=== PATIENT | male | born 1960 | race Caucasian/White ===

== ENCOUNTER 2019-06-09 10:32 | Emergency (ER) | payer OTHER, SELFPAY ==
[2019-06-09 10:48] VITALS: BP 161/104; PULSE 65; RESP 18; TEMP 36.4; O2SAT 100; BMI 24.7
[2019-06-09 11:06] LABS: Basophils # 0.1 10^3/uL (0.0-0.1); Basophils % 0.9 %; Eosinophils # 1.1 10^3/uL (0.0-0.8); Eosinophils % 12.5 %; Hematocrit 42.7 % (42.0-52.0); Hemoglobin 14.4 g/dL (11.7-16.6); Lymphocytes % 22.6 %; Mean Corpuscular HGB Conc 33.7 g/dL (30.0-36.0); Mean Corpuscular Hemoglobin 29.8 pg (28.0-34.0); Mean Corpuscular Volume 88.4 fL (80-94); Mean Platelet Volume 9.3 fL (7.4-10.4); Monocytes # 0.7 10^3/uL (0.2-0.9); Monocytes % 7.9 %; Neutrophils # 4.9 10^3/uL (1.8-7.7); Neutrophils % 55.4 %; Nucleated Red Blood Cells % 0 %; Platelet Count 309 10^3/cmm (130-400); Red Blood Count 4.83 10^6/uL (4.1-5.3); Red Cell Distribution Width 13.1 % (12.1-15.1); White Blood Count 8.8 10^3/uL (4.0-10.0)
[2019-06-09 11:24] LABS: Alanine Aminotransferase 13 U/L (0-41); Albumin Level 4.4 g/dL (3.5-5.2); Alkaline Phosphatase 71 IU/L (40-130); Anion Gap 14.4 (5-19); Aspartate Amino Transferase 15 U/L (0-40); Blood Urea Nitrogen 15 mg/dL (6-20); Calcium 9.7 mg/Dl (8.6-10.0); Carbon Dioxide 29 mmol/L (22-29); Chloride 99 mmol/L (98-107); Globulin 3.3 g/dL (1.3-4.6); Glomerular Filtration Rate 115.8 mL/min (90-130); Glucose 104 mg/dL (74-109); Lipase 19 U/L (13-60); Potassium 4.4 mmol/L (3.5-5.1); Sodium 138 mmol/L (136-145); Total Bilirubin 0.6 mg/dL (0.15-1.2); Total Protein 7.7 g/dL (6.6-8.7)
== END 2019-06-09 14:43 | disposition left against medical advice (07) ==
LOC: ER 11:32
PROVIDERS: Nurse Practitioner Family; Emergency Provider Emergency Medicine
DX: Z53.21 Procedure and treatment not carried out due to patient leaving prior to being seen by health care provider (principal)
CPT/HCPCS: 36415; 80053; 83690; 85025; 99281

== ENCOUNTER 2019-06-10 09:35 | Emergency (ER) | payer OTHER, SELFPAY ==
[2019-06-10 09:47] VITALS: BP 151/91; PULSE 70; RESP 18; TEMP 36.7; O2SAT 99; BMI 24.7
--- NOTE | 2019-06-10 10:02 | ED_ITS ---
Entered by Marlyn Bell, acting as scribe for Jun 10, 2019 09:35 HPI - Chest Pain General: Chief Complaint: Abdominal Pain Stated Complaint: pressure on chest Time Seen by Provider: 06/10/19 10:00 Source: patient Mode of arrival: ambulatory Limitations: no limitations History of Present Illness: MD complaint: other (abdomen pain that radiates to his head) Onset (ago): day(s) (yesterday) Prior episodes: Yes Onset: during rest Pain radiation: other (abdomen to head) Severity: mild Quality: sharp Relieving factors: nothing Exacerbating factors: nothing Associated symptoms: Reports abdominal pain Treatment prior to arrival: none Review of Systems GI: Reports: abdominal pain PFSH ED PFSH: Statuses (acute, chronic, etc) shown below reflect problem list status as previously entered and may not be historically accurate Medical History (Updated 06/10/19 @ 14:05 by Marco A Robertson DO) History of chronic hypertension (Acute) Surgical History (Updated 06/10/19 @ 10:11 by Marlyn Bell) History of appendectomy (Acute) History of tonsillectomy (Acute) Social History Smoking and tobacco status: former smoker Course Vital Signs: Vital signs: Vital Signs Temperature 97.6 F 06/10/19 14:24 Pulse Rate 70 06/10/19 14:31 Respiratory Rate 15 06/10/19 14:31 Blood Pressure 125/70 06/10/19 14:31 Pulse Oximetry 98 06/10/19 14:31 MDM - Chest Pain Lab Data: Labs: Lab Results 06/10/19 06/10/19 06/10/19 Range/Units 11:20 11:20 11:20 WBC 7.9 (4.0-10.0) 10^3/ uL RBC 4.56 (4.1-5.3) 10^6/u L Hgb 13.6 (11.7-16.6) g/dL Hct 40.5 L (42.0-52.0) % MCV 88.8 (80-94) fL MCH 29.8 (28.0-34.0) pg MCHC 33.6 (30.0-36.0) g/dL RDW 13.1 (12.1-15.1) % Plt Count 285 (130-400) 10^3/c mm MPV 9.1 (7.4-10.4) fL Neut % (Auto) 55.4 % Lymph % (Auto) 20.9 % [place] % (Auto) 8.6 % Eos % (Auto) 13.4 % Baso % (Auto) 1.1 % Neut # (Auto) 4.4 (1.8-7.7) 10^3/u L Lymph # (Auto) 1.7 (0.8-4.8) 10^3/u L [place] # (Auto) 0.7 (0.2-0.9) 10^3/u L Eos # (Auto) 1.1 H (0.0-0.8) 10^3/u L Baso # (Auto) 0.1 (0.0-0.1) 10^3/u L Nucleated RBC % (a uto) 0 % Nucleated RBCs # 0.0 /100WBC Sodium 142 (136-145) mmol/L Potassium 4.4 (3.5-5.1) mmol/L Chloride 104 (98-107) mmol/L Carbon Dioxide 29 (22-29) mmol/L Anion Gap 13.4 (5-19) BUN 18 (6-20) mg/dL Creatinine 0.9 (0.7-1.2) mg/dL GFR Calculation 86.7 L (90-130) mL/min Glucose 104 (74-109) mg/dL Calcium 9.4 (8.6-10.0) mg/Dl Total Bilirubin 0.3 (0.15-1.2) mg/dL AST 13 (0-40) U/L ALT 13 (0-41) U/L Alkaline Phosphata se 64 (40-130) IU/L Troponin T Baselin e 6 (0-15) ng/mL Troponin T 120 Min [place] (0-15) ng/mL Delta Troponin T (0-10) ABS# Total Protein 6.8 (6.6-8.7) g/dL Albumin 4.0 (3.5-5.2) g/dL Globulin 2.8 (1.3-4.6) g/dL Lipase 21 (13-60) U/L 06/10/19 Range/Units 13:25 WBC (4.0-10.0) 10^3/ uL RBC (4.1-5.3) 10^6/u L Hgb (11.7-16.6) g/dL Hct (42.0-52.0) % MCV (80-94) fL MCH (28.0-34.0) pg MCHC (30.0-36.0) g/dL RDW (12.1-15.1) % Plt Count (130-400) 10^3/c mm MPV (7.4-10.4) fL Neut % (Auto) % Lymph % (Auto) % [place] % (Auto) % Eos % (Auto) % Baso % (Auto) % Neut # (Auto) (1.8-7.7) 10^3/u L Lymph # (Auto) (0.8-4.8) 10^3/u L [place] # (Auto) (0.2-0.9) 10^3/u L Eos # (Auto) (0.0-0.8) 10^3/u L Baso # (Auto) (0.0-0.1) 10^3/u L Nucleated RBC % (a uto) % Nucleated RBCs # /100WBC Sodium (136-145) mmol/L Potassium (3.5-5.1) mmol/L Chloride (98-107) mmol/L Carbon Dioxide (22-29) mmol/L Anion Gap (5-19) BUN (6-20) mg/dL Creatinine (0.7-1.2) mg/dL GFR Calculation (90-130) mL/min Glucose (74-109) mg/dL Calcium (8.6-10.0) mg/Dl Total Bilirubin (0.15-1.2) mg/dL AST (0-40) U/L ALT (0-41) U/L Alkaline Phosphata se (40-130) IU/L Troponin T Baselin e (0-15) ng/mL Troponin T 120 Min [place] 6.00 (0-15) ng/mL Delta Troponin T 0 (0-10) ABS# Total Protein (6.6-8.7) g/dL Albumin (3.5-5.2) g/dL Globulin (1.3-4.6) g/dL Lipase (13-60) U/L Discharge Plan Discharge Patient Disposition: Home, Self-Care Clinical Impression: Gastritis Qualifiers: Gastritis type: other gastritis Chronicity: acute Gastritis bleeding: without bleeding Qualified Code(s): K29.00 - Acute gastritis without bleeding Gastroesophageal reflux disease Qualifiers: Esophagitis presence: without esophagitis Qualified Code(s): K21.9 - Gastro- esophageal reflux disease without esophagitis Condition: Stable Prescriptions: New Pepcid 40 mg tablet 40 mg PO BID 56 Days Qty: 112 RF: 0 Carafate 100 mg/mL suspension 10 ml PO Q6H 56 Days Qty: 2240 RF: 0 amoxicillin 500 mg capsule 500 mg PO TID 10 Days Qty: 30 RF: 0 prednisone 10 mg tablets,dose pack See Rx Instructions .ROUTE .COMPLEX Qty: 21 RF: 0 No Action ibuprofen 200 mg Capsule 200 - 400 mg PO Q6H PRN (Reason: Pain) RF: 0 Tylenol Extra Strength 500 mg Tablet 500 - 1,000 mg PO Q4H PRN (Reason: Pain) RF: 0 Discharge Orders: Discharge Order (Routine); Ordered 06/10/19 Ordered By: Marco A Robertson Referrals: Angel Oro MD [Primary Care Provider] - [facility] [Family Provider] - Discharge Date/Time: 06/10/19 14:31 Coding Level of Care Code ED Tumbling Machine Operator for Chg Fwd The documentation recorded by the Ray otoole Bridget Annette, accurately reflects the service I personally performed and the decisions made by Marcelo torres Donald P, Jun 10, 2019 09:35
--- NOTE | 2019-06-10 11:11 | ECG_ITS ---
Measurements Intervals [place] Rate: 56 P: 37 CO: 161 QRS: 5 QRSD: 79 T: 29 QT: 400 QTc: 389 SINUS BRADYCARDIA No previous ECG available for comparison Electronically Signed On 06-10-2019 13:26:05 DOG HANDLER by Emilie Mendoza M.D. [email or web address]
[2019-06-10 11:25] LABS: Basophils # 0.1 10^3/uL (0.0-0.1); Basophils % 1.1 %; Eosinophils # 1.1 10^3/uL (0.0-0.8); Eosinophils % 13.4 %; Hematocrit 40.5 % (42.0-52.0); Hemoglobin 13.6 g/dL (11.7-16.6); Lymphocytes # 1.7 10^3/uL (0.8-4.8); Lymphocytes % 20.9 %; Mean Corpuscular HGB Conc 33.6 g/dL (30.0-36.0); Mean Corpuscular Hemoglobin 29.8 pg (28.0-34.0); Mean Corpuscular Volume 88.8 fL (80-94); Mean Platelet Volume 9.1 fL (7.4-10.4); Monocytes # 0.7 10^3/uL (0.2-0.9); Monocytes % 8.6 %; Neutrophils # 4.4 10^3/uL (1.8-7.7); Neutrophils % 55.4 %; Nucleated Red Blood Cells % 0 %; Platelet Count 285 10^3/cmm (130-400); Red Blood Count 4.56 10^6/uL (4.1-5.3); Red Cell Distribution Width 13.1 % (12.1-15.1); White Blood Count 7.9 10^3/uL (4.0-10.0)
[2019-06-10 11:44] LABS: Alanine Aminotransferase 13 U/L (0-41); Alkaline Phosphatase 64 IU/L (40-130); Anion Gap 13.4 (5-19); Aspartate Amino Transferase 13 U/L (0-40); Blood Urea Nitrogen 18 mg/dL (6-20); Calcium 9.4 mg/Dl (8.6-10.0); Carbon Dioxide 29 mmol/L (22-29); Chloride 104 mmol/L (98-107); Globulin 2.8 g/dL (1.3-4.6); Glomerular Filtration Rate 86.7 mL/min (90-130); Glucose 104 mg/dL (74-109); Lipase 21 U/L (13-60); Potassium 4.4 mmol/L (3.5-5.1); Sodium 142 mmol/L (136-145); Total Bilirubin 0.3 mg/dL (0.15-1.2); Total Protein 6.8 g/dL (6.6-8.7)
[2019-06-10 11:46] LABS: Troponin(5th) Baseline 6 ng/mL (0-15)
[2019-06-10 12:12] VITALS: BP 123/72; PULSE 66; RESP 19; O2SAT 98
--- NOTE | 2019-06-10 13:11 | ECG_ITS ---
Measurements Intervals [place] Rate: 66 P: 42 DE: 149 QRS: 0 QRSD: 84 T: 31 QT: 378 QTc: 397 SINUS RHYTHM No previous ECG available for comparison Electronically Signed On 06-10-2019 13:35:45 HOURLY SIGN LANGUAGE INTERPRETER by Emilie Mendoza M.D. [email or web address]
[2019-06-10 13:52] LABS: Troponin 5 2HR Delta 0 ABS# (0-10)
[2019-06-10 14:24] VITALS: BP 137/84; PULSE 64; RESP 18; TEMP 36.4; O2SAT 98
[2019-06-10 14:31] VITALS: BP 125/70; PULSE 70; RESP 15; O2SAT 98
== END 2019-06-10 14:31 | disposition home or self-care (01) ==
PROVIDERS: Emergency Provider Family Medicine; PCP Urology
DX: K29.00 Acute gastritis without bleeding (principal); K21.9 Gastro-esophageal reflux disease without esophagitis; I10 Essential (primary) hypertension; Z87.891 Personal history of nicotine dependence
CPT/HCPCS: 36415; 80053; 83690; 84484; 85025; 93005; 99282; 99283

== ENCOUNTER → 2020-07-22 11:31 | Outpatient (BNVA) | payer OTHER, SELFPAY | PROVIDERS: PCP Orthopaedic Surgery; Referring Provider Family Medicine; Visit Provider Specialist | DX: M25.561 Pain in right knee (principal) | CPT/HCPCS: 73560; 73565 ==

== ENCOUNTER → 2023-07-03 12:20 | Outpatient (BNVA) | payer OTHER, SELFPAY | PROVIDERS: PCP Nurse Practitioner; Visit Provider Internal Medicine Rheumatology | DX: Z79.899 Other long term (current) drug therapy (principal); M19.90 Unspecified osteoarthritis, unspecified site; R76.8 Other specified abnormal immunological findings in serum; Z11.59 Encounter for screening for other viral diseases; M35.2 Behcet's disease | CPT/HCPCS: 36415; 73130; 73630; 80076; 82565; 85007; 85025; 85651; 86021; 86036; 86140; 86160; 86162; 86200; 86235; 86255; 86376; 86431; 86480; 86704; 86800; 86803; 86812; 87340; 99205 ==

== ENCOUNTER 2023-07-05 11:13 | Outpatient (CLI) | payer OTHER, SELFPAY ==
[2023-07-06 16:09] LABS: Alternaria Alternata (M6) Ige <0.10 kU/L; Alternaria Class 0; Bermuda Class 0; Bermuda Grass (G2) Ige <0.10 kU/L; Cat Dander (E1) Ige <0.10 kU/L; Cat Dander Class 0; Common Ragweed (Short) (W1) Ig <0.10 kU/L; D. Farinae Class 0; Dermatophagoides Class 0; Dermatophagoides Farinae (D2) <0.10 kU/L; Dermatophagoides Pteronyssinus <0.10 kU/L; Dog Dander (E5) Ige <0.10 kU/L; Dog Dander Class 0; Elm (T8) Ige <0.10 kU/L; Elm Class 0; English Plantain (W9) Ige <0.10 kU/L; English Plantain Class 0; House Dust (Greer) (H1) Ige <0.10 kU/L; House Dust (Hollister- Stier) <0.10 kU/L; House Dust Class 0; Immunoglobulin E 6 kU/L (<OR=114); Johnson Grass (G10) Ige <0.10 kU/L; Johnson Grass Cl 0; June Grass Class 0; June Grass(Kentucky Blue) (G8) <0.10 kU/L; Lamb'S Quarters (Goose Foot) <0.10 kU/L; Lamb'S Quarters Class 0; Maple (Box Elder) (T1) Ige <0.10 kU/L; Maple Class 0; Meadow Fescue (G4) Ige <0.10 kU/L; Meadow Fescue Class 0; Mucor Racemosus Class 0; Oak (T7) Ige <0.10 kU/L; Oak Class 0; Orchard Grass (Cocksfoot) (G3) <0.10 kU/L; Penicillium Class 0; Penicillium Notatum (M1) Ige <0.10 kU/L; Perennial Rye Grass (G5) Ige <0.10 kU/L; Perennial Rye Grass Class 0; Ragweeed Class 0; Rough Marsh Elder (W16) Ige <0.10 kU/L; Rough Marsh Elder Class 0; Sweet Vernal Class 0; Sweet Vernal Grass (G1) Ige <0.10 kU/L; Timothy Grass (G6) Ige <0.10 kU/L; Timothy Grass Class 0
== END 2023-07-05 11:14 | disposition home or self-care (01) ==
LOC: LAB 11:14
PROVIDERS: PCP Nurse Practitioner; Visit Provider Internal Medicine Rheumatology
DX: D72.10 Eosinophilia, unspecified (principal)
CPT/HCPCS: 36415; 82785; 86003

== ENCOUNTER 2023-07-17 09:33 | Outpatient (CLI) | payer OTHER, SELFPAY ==
--- NOTE | 2023-07-17 10:45 | USCV_ITS ---
Mark Rodriguez Age: 63 Gender: M : 1960 Exam Date: 07/17/2023 09:45 Ordering Phys: Rashid Cardozo MD Technologist: Mckayla Luis [place] [facility] [place]: SWOLLEN ANKLES HISTORY: Swollen ankles and feet PROCEDURES: The venous duplex Doppler examination of both lower extremities was performed in the standard fashion. The following venous structures were evaluated: common femoral vein, profunda vein, proximal portion of the greater saphenous vein, superficial femoral vein, and the popliteal vein. In addition, the posterior tibial and peroneal trunk were evaluated. Serial compression, augmentation maneuvers, and spectral Doppler flow evaluation were performed. FINDINGS: Normal 2-D Doppler and augmentation and compressibility throughout the lower extremity venous structures. Additional imaging through the proximal calf veins also reveals no thrombus. Limited evaluation of the greater saphenous vein is patent with no thrombus. The veins were found to be easily compressible with spontaneous blood flow. Non pulsatile flow pattern. CONCLUSIONS No evidence of DVT in the above-mentioned identifiable veins. Dr Bubba Dale MD [facility] (Electronically Signed) Final Date: 19 July 2023 09:10 S
== END 2023-07-17 09:34 | disposition home or self-care (01) ==
LOC: RAD 09:34
PROVIDERS: PCP Nurse Practitioner; Visit Provider Internal Medicine Rheumatology
DX: L98.9 Disorder of the skin and subcutaneous tissue, unspecified (principal); M35.2 Behcet's disease; I83.90 Asymptomatic varicose veins of unspecified lower extremity
CPT/HCPCS: 93970

== ENCOUNTER 2023-07-19 08:55 | Outpatient (CLI) | payer OTHER, SELFPAY ==
--- NOTE | 2023-07-19 09:15 | USCV_ITS ---
Mark Rodriguez Age: 63 Gender: M : 1960 Exam Date: 07/19/2023 09:01 Ordering Phys: Rashid Cardozo MD Technologist: MANN Exam Location: [facility] [place] Indication: pad Risk Factors: Previous Vascular Surgery: RIGHT LEFT BP: 150.0 / 87.00 BP: 157.0/ 90.00 0 0 Waveform Velocity (cm/s) Velocity (cm/s) Waveform Triphasic 63.0 Iliac Prox 66.0 Triphasic Triphasic 62.0 Iliac Mid 60.0 Triphasic Triphasic 66.0 Iliac Distal 65.0 Biphasic Triphasic 66.0 DATA REVIEW SPECIALIST 63.0 Biphasic Triphasic 70.0 SFA Prox 79.0 Triphasic Triphasic 60.0 SFA Mid 74.0 Triphasic Triphasic SFA Dist Triphasic 60.0 85.0 Triphasic 41.0 POP 51.0 Biphasic Triphasic 77.0 SUPERVISOR TUBING 66.0 Biphasic Triphasic 75.0 DPA 77.0 Biphasic 0.9 KESHIA 0.9 FINDINGS Near normal arterial Doppler waveforms and velocities Resting KESHIA of 0.9 bilaterally CONCLUSIONS Normal normal resting ABIs bilaterally Normal arterial Doppler waveforms and flow velocities bilaterally No significant arterial obstruction, based on the above findings Dr Bubba Dale MD [facility] (Electronically Signed) Final Date: 19 July 2023 17:17 S
== END 2023-07-19 08:56 | disposition home or self-care (01) ==
LOC: RAD 08:56
PROVIDERS: PCP Nurse Practitioner; Visit Provider Internal Medicine Rheumatology
DX: L98.9 Disorder of the skin and subcutaneous tissue, unspecified (principal); M35.2 Behcet's disease; I83.90 Asymptomatic varicose veins of unspecified lower extremity
CPT/HCPCS: 93925

== ENCOUNTER → 2023-08-06 12:29 | Outpatient (BNVA) | payer OTHER, SELFPAY | PROVIDERS: PCP Nurse Practitioner; Visit Provider Internal Medicine Rheumatology | DX: M35.2 Behcet's disease (principal); Z79.899 Other long term (current) drug therapy; K12.1 Other forms of stomatitis; Z71.85 Encounter for immunization safety counseling; M19.90 Unspecified osteoarthritis, unspecified site; R21 Rash and other nonspecific skin eruption | CPT/HCPCS: 99215 ==

== ENCOUNTER 2023-08-21 14:32 | Outpatient (CLI) | payer OTHER, SELFPAY ==
--- NOTE | 2023-08-21 15:00 | CT_ITS ---
WS: [id number] CTA CHEST AND ABDOMEN TECHNIQUE: Noncontrast plus contrast enhanced CTA of the chest and abdomen with coronal and sagittal reformatted images and additional MIP Images. CLINICAL INFORMATION: L98.9 - Disorder of the skin and subcutaneous tissue, uns... COMPARISON: None. DLP: [id number] scans at [facility] use at least one of these dose optimization techniques: automated e xposure control; mA and/or kV adjustment per patient size (includes targeted exams where dose is matc hed to clinical indication); or iterative reconstruction. FINDINGS: Lungs are well aerated. No acute pulmonary infiltrates. No focal pneumonia or pleural fluid. Slight b ibasilar atelectasis. Proximal main pulmonary arteries are normal. Normal caliber thoracic aorta. Nor mal caliber ascending and descending thoracic aorta. Normal caliber abdominal aorta with mild aortic calcification. Celiac and SMA are patent. Proximal re nal arteries are patent. Partially visualized ectatic RIGHT common iliac artery measuring 1.6 cm. Thi s could be further evaluated with ultrasound. Pelvis not included on this examination. A few small hepatic cysts. Small esophageal hiatal hernia. Adrenal glands are normal. No hydronephros is in either kidney. Peripelvic renal cysts. Mild splenomegaly measuring 13.0 cm. Normal pancreas. Pa rtially visualized bilateral spondylolysis L5-S1 with slight anterolisthesis. Normal visualized proxi mal great vessels. IMPRESSION: 1. Normal caliber thoracic aorta and proximal main pulmonary arteries. 2. No suspicious findings in the chest. 3. Normal caliber abdominal aorta with mild aortic calcification. 4. Partially visualized ectatic RIGHT common iliac artery measuring 1.6 cm. This can be further eval uated with ultrasound. 5. Small esophageal hiatal hernia. 6. Peripelvic renal cysts. 7. A few small incidental hepatic cysts. 8. Mild splenomegaly. 9. L5-S1 spondylolysis with slight grade 1 anterolisthesis
[2023-08-21] MEDS: iohexol 350 mg/mL 500 mL Btl (per mL) IV (15:20)
== END 2023-08-21 14:33 | disposition home or self-care (01) ==
LOC: RAD 14:33
PROVIDERS: PCP Nurse Practitioner; Visit Provider Internal Medicine Rheumatology
DX: L98.9 Disorder of the skin and subcutaneous tissue, unspecified (principal); M35.2 Behcet's disease; I83.90 Asymptomatic varicose veins of unspecified lower extremity; K44.9 Diaphragmatic hernia without obstruction or gangrene; N28.1 Cyst of kidney, acquired; K76.89 Other specified diseases of liver; M47.816 Spondylosis without myelopathy or radiculopathy, lumbar region; R16.1 Splenomegaly, not elsewhere classified
CPT/HCPCS: 71275; 74175; Q9967

== ENCOUNTER 2023-09-13 14:38 | Outpatient (CLI) | payer OTHER, SELFPAY ==
[2023-09-13 14:56] LABS: Hematocrit 35.8 % (37-53); Mean Corpuscular Hemoglobin 33.1 pg (27-33); Mean Corpuscular Volume 100.3 fl (82-101); Mean Platelet Volume 8.6 fL (7.4-10.4); Platelet Count 230 10^3/cmm (157-399); Red Blood Count 3.57 10^6/uL (3.85-5.65); Red Cell Distribution Width 14.6 % (12.1-15.1); White Blood Count 11.06 10^3/uL (3.29-11.43)
[2023-09-13 15:14] LABS: Alanine Aminotransferase 12 U/L (0-41); Albumin Level 3.8 g/dL (3.5-5.2); Alkaline Phosphatase 70 U/L (40-130); Aspartate Amino Transferase 8 U/L (0-40); Globulin 2.5 g/dL (1.3-4.6); Glomerular Filtration Rate 75.7 mL/min (90-130); Total Bilirubin 0.4 mg/dL (0.15-1.2); Total Protein 6.3 g/dL (6.6-8.7)
[2023-09-13 15:20] LABS: Slide Review Slide Review Perform; Total Cells Counted 100 (0-100)
[2023-09-13 15:25] LABS: Absolute Segmented Neutrophil 7.2 10/cmm (1.6-7.1); Band Neutrophils Absolute 0.3 10^3/cmm (0.0-1.2); Lymphocytes 24 %; Segmented Neutrophils 65 %
[2023-09-13 15:26] LABS: Absolute Eosinophils 0.2 10^3/cmm (0.0-0.7); Absolute Neutrophil 7.5 10^3/cmm (1.4-6.5); Anisocytosis Trace; Eosinophils 2 %; Lymphocytes Absolute 2.7 10^3/cmm (1.2-3.4); Macrocytosis Trace; Platelet Estimate Normal (Normal)
== END 2023-09-13 14:39 | disposition home or self-care (01) ==
LOC: LAB 14:39
PROVIDERS: PCP Nurse Practitioner; Visit Provider Internal Medicine Rheumatology
DX: M35.2 Behcet's disease (principal); Z79.899 Other long term (current) drug therapy
CPT/HCPCS: 36415; 80076; 82565; 85007; 85025; 86140

== ENCOUNTER 2023-10-04 14:53 | Emergency (ER) | payer OTHER, SELFPAY ==
--- NOTE | 2023-10-04 15:04 | XRR_ITS ---
PROCEDURE INFORMATION: Exam: XR Right Knee Exam date and time: 10/04/2023 3:15 PM Age: 63 years old Clinical indication: Patient HX: Pain in right knee; Additional info: Injury TECHNIQUE: Imaging protocol: Radiologic exam of the right knee. Views: 3 views. COMPARISON: CR XR knees AP WB w RT lmt ORTH 07/22/2020 11:37 AM FINDINGS: Bones/joints: No acute fracture. Joint spaces are preserved. Soft tissues: Chondrocalcinosis of the menisci. XR/XR knee RT 3V* [id number] IMPRESSION: No acute findings.
[2023-10-04 15:29] VITALS: BP 141/85; PULSE 75; RESP 16; TEMP 36.7; O2SAT 97; BMI 28.3
[2023-10-04 17:18] LABS: Basophils % 0.3 %; Eosinophils # 0.4 10^3/uL (0.0-0.8); Eosinophils % 3.1 %; Hematocrit 39.8 % (37-53); Lymphocytes # 2.3 10^3/uL (0.8-4.8); Lymphocytes % 19.8 %; Mean Corpuscular HGB Conc 32.4 g/dL (30-55); Mean Corpuscular Hemoglobin 32.8 pg (27-33); Mean Corpuscular Volume 101.3 fl (82-101); Mean Platelet Volume 8.7 fL (7.4-10.4); Monocytes # 0.4 10^3/uL (0.2-0.9); Monocytes % 3.1 %; Neutrophils # 8.21 10^3/uL (1.8-7.7); Neutrophils % 71.6 %; Nucleated Red Blood Cells % 0 %; Platelet Count 225 10^3/cmm (157-399); Red Blood Count 3.93 10^6/uL (3.85-5.65); Red Cell Distribution Width 13.8 % (12.1-15.1); White Blood Count 11.47 10^3/uL (3.29-11.43)
[2023-10-04 17:29] LABS: Alanine Aminotransferase 13 U/L (0-41); Alkaline Phosphatase 67 U/L (40-130); Anion Gap 13.6 (5-19); Aspartate Amino Transferase 8 U/L (0-40); Blood Urea Nitrogen 21 mg/dL (8-23); C Reactive Protein 10.8 mg/L (0.0-4.9); Calcium 8.7 mg/dL (8.5-10.5); Carbon Dioxide 27 mmol/L (22-29); Chloride 108 mmol/L (98-107); Erythrocyte Sedimentation Rate 5 mm/hr (0-10); Globulin 3.2 g/dL (1.3-4.6); Glomerular Filtration Rate 85.5 mL/min (90-130); Glucose 115 mg/dL (65-115); Osmolality Calculated 302 mOsm/kg (285-295); Potassium 4.6 mmol/L (3.5-5.1); Sodium 144 mmol/L (136-145); Total Bilirubin 0.4 mg/dL (0.15-1.2); Total Protein 7.2 g/dL (6.6-8.7); Uric Acid 6.3 mg/dL (3.4-7.0)
[2023-10-04 17:54] LABS: Slide Review Slide Review Perform
--- NOTE | 2023-10-04 19:29 | ED_ITS ---
HPI - Extremity Problem 2 General: Chief complaint: Extremity Problem,Nontraumatic Stated complaint: right knee pain, sent by Juliane Time Seen by Provider: 10/04/23 19:28 History of Present Illness: 63-year-old male [facility] Patient was sent over by rheumatology for concerns of possible septic knee. Patient has some redness to the anterior aspect of the knee. There is some fluctuance in the area of redness. Patient denies fever or chills. Patient has been on cephalexin for treatment of possible cellulitis. Review of Systems 2 General: Reports: 10 or more systems reviewed and unremarkable except in HPI and below PFSH ED 2 PFSH: Medical History (Updated 10/04/23 @ 20:02 by LEEANN Dumas) Allergies Rash Immunization counseling High risk medication use Oral ulceration Male genital ulcer Behcet's disease Suspected Inflammatory arthritis History of chronic hypertension Surgical History History of appendectomy History of tonsillectomy Family History Other Diabetes Hypertension Stroke Denies family history of Lupus (systemic lupus erythematosus) Rheumatoid arthritis Liver disease Polycystic kidney disease Heart disease Hyperlipidemia Kidney stones Family history of premature coronary artery disease Lung disease Cancer Social History Smoking and tobacco/nicotine status: former use of tobacco/nicotine Alcohol intake: never Physical Exam 2 Const: COMMON NORMALS: alert HENMT: COMMON NORMALS: normocephalic HEAD & SCALP: normocephalic Neck/C-Spine: COMMON NORMALS: full ROM Resp: COMMON NORMALS: normal respiratory effort and clear to auscultation bilaterally AUSCULTATION: clear to auscultation bilaterally Cardio: COMMON NORMALS: regular rate and regular rhythm RATE: regular rate RHYTHM: regular rhythm GI: COMMON NORMALS: non-tender Extremity: RIGHT LOWER EXTREMITY: Yes knee joint (Anterior knee redness. Normal range of motion.) Right knee: Yes inspection, Yes palpation, Yes ROM and Yes neurovascular exam Neuro: SENSORIUM/ORIENTATION: Yes alert Skin: NARRATIVE SKIN EXAM: Redness and induration to the anterior right knee. Central fluctuance. Procedures Abscess I/D Site: lower extremity Side (if applicable): right Local Anesthetic: lidocaine 2% Amount of anesthesia used (mL): 1 Technique: needle aspiration Amount of fluid expressed (mL): 5 Irrigation: No Packing used?: none Course 2 Vital Signs: Vital signs: Vital Signs Temperature 98.0 F 10/04/23 15:29 Pulse Rate 75 10/04/23 15:29 Respiratory Rate 16 10/04/23 15:29 Blood Pressure 141/85 10/04/23 15:29 Pulse Oximetry 97 10/04/23 15:29 Oxygen Delivery Me thod Room Air 10/04/23 15:29 MDM - Extremity (Nontraumatic) Medical Decision Making 63-year-old male patient comes in today for complaints of anterior redness to the right knee. On exam patient appears nontoxic. Patient has some tenderness to the knee. Patient has good range of motion of the knee. Swelling is noted anteriorly to the knee. Differential diagnosis includes not limited to septic arthritis, bursitis, abscess. Attempted aspiration of the joint with no success. Then performed a superficial aspiration in the area of fluctuance which was centralized to the area of redness and was able to aspirate 5 mL of purulent fluid. This seems to be more of an abscess than a bursitis or septic arthritis. We will add better coverage for staph with clindamycin with his present regimen of cephalexin. Patient was recommended to monitor for worsening infection. Patient reported understanding of care plan and need for follow-up or return to the ER. Lab Data 10/04/23 17:05 10/04/23 17:05 Radiology Impressions Knee X-Ray 10/04/23 15:04 IMPRESSION: No acute findings. Laboratory Results WBC 11.47 10^3/uL (3.29-11.43) H 10/04/23 17:05 RBC 3.93 10^6/uL (3.85-5.65) 10/04/23 17:05 Hgb 12.90 g/dL (11.27-16.99) 10/04/23 17:05 Hct 39.8 % (37-53) 10/04/23 17:05 MCV 101.3 fl (82-101) H 10/04/23 17:05 MCH 32.8 pg (27-33) 10/04/23 17:05 MCHC 32.4 g/dL (30-55) 10/04/23 17:05 RDW 13.8 % (12.1-15.1) 10/04/23 17:05 Plt Count 225 10^3/cmm (157-399) 10/04/23 17:05 MPV 8.7 fL (7.4-10.4) 10/04/23 17:05 Neut % (Auto) 71.6 % 10/04/23 17:05 Lymph % (Auto) 19.8 % 10/04/23 17:05 [place] % (Auto) 3.1 % 10/04/23 17:05 Eos % (Auto) 3.1 % 10/04/23 17:05 Baso % (Auto) 0.3 % 10/04/23 17:05 Neut # (Auto) 8.21 10^3/uL (1.8-7.7) H 10/04/23 17:05 Lymph # (Auto) 2.3 10^3/uL (0.8-4.8) 10/04/23 17:05 [place] # (Auto) 0.4 10^3/uL (0.2-0.9) 10/04/23 17:05 Eos # (Auto) 0.4 10^3/uL (0.0-0.8) 10/04/23 17:05 Baso # (Auto) 0.0 10^3/uL (0.0-0.1) 10/04/23 17:05 Nucleated RBC % (auto) 0 % 10/04/23 17:05 Nucleated RBCs # 0.0 /100WBC 10/04/23 17:05 ESR 5 mm/hr (0-10) 10/04/23 17:05 Sodium 144 mmol/L (136-145) 10/04/23 17:05 Potassium 4.6 mmol/L (3.5-5.1) 10/04/23 17:05 Chloride 108 mmol/L (98-107) H 10/04/23 17:05 Carbon Dioxide 27 mmol/L (22-29) 10/04/23 17:05 Anion Gap 13.6 (5-19) 10/04/23 17:05 BUN 21 mg/dL (8-23) 10/04/23 17:05 Creatinine 0.9 mg/dL (0.7-1.2) 10/04/23 17:05 GFR Calculation 85.5 mL/min (90-130) L 10/04/23 17:05 Glucose 115 mg/dL (65-115) 10/04/23 17:05 Calculated Osmolality 302 mOsm/kg (285-295) H 10/04/23 17:05 Uric Acid 6.3 mg/dL (3.4-7.0) 10/04/23 17:05 Calcium 8.7 mg/dL (8.5-10.5) 10/04/23 17:05 Total Bilirubin 0.4 mg/dL (0.15-1.2) 10/04/23 17:05 AST 8 U/L (0-40) 10/04/23 17:05 ALT 13 U/L (0-41) 10/04/23 17:05 Alkaline Phosphatase 67 U/L (40-130) 10/04/23 17:05 C-Reactive Protein 10.8 mg/L (0.0-4.9) H 10/04/23 17:05 Total Protein 7.2 g/dL (6.6-8.7) 10/04/23 17:05 Albumin 4.0 g/dL (3.5-5.2) 10/04/23 17:05 Globulin 3.2 g/dL (1.3-4.6) 10/04/23 17:05 All radiology interpretation(s) finalized by discharge Discharge Plan Discharge Patient Disposition: Home Clinical Impression: Cutaneous abscess of right knee Condition: Stable Prescriptions: New clindamycin HCl 300 mg capsule 300 mg PO Q8H 7 Days Qty: 21 0RF No Action montelukast [Singulair] 10 mg tablet 10 mg PO DAILY cetirizine 10 mg tablet 10 mg PO DAILY PRN albuterol sulfate 90 mcg/actuation HFA aerosol inhaler 2 puff inhalation QID PRN cholecalciferol (vitamin D3) 25 mcg (1,000 unit) capsule 25 mcg PO DAILY oxymetazoline [Afrin (oxymetazoline)] 0.05 % spray,non-aerosol 2 spray intranasal Q12H PRN triamcinolone acetonide 0.1 % cream 1 applic topical BID colchicine 0.6 mg tablet 0.6 mg PO BID Qty: 60 3RF Hold Instructions: Doctor's Order methotrexate sodium 2.5 mg tablet See Rx Instructions PO .Q7days Qty: 90 0RF Rx Instructions: take 6 tabs on same day once a week PO .Q7days; folic acid 1 mg tablet 1 mg PO DAILY Qty: 90 1RF prednisone 20 mg tablet 20 mg PO DAILY Qty: 90 1RF ibuprofen 200 mg Capsule 200 - 400 mg PO Q6H PRN (Reason: Pain) Hold Instructions: Doctor's Order Tylenol Extra Strength 500 mg Tablet 500 - 1,000 mg PO Q4H PRN (Reason: Pain) Discharge Orders: Discharge ED (Routine); Ordered 10/04/23 Ordered By: Aren Gore Referrals: Marisela Blackmon FNP [Primary Care Provider] - Discharge Diet: Usual diet Discharge Activity: Increase activity as tolerated Patient Instructions: Skin Abscess Activity Restrictions/Additional Instructions: Drink plenty of water and fluids. Take clindamycin 300 mg 3 times a day for the next 5 to 7 days. Continue with cephalexin as prescribed. Follow-up with primary care for recheck. Return to ED for worsening symptoms such as high fever, increasing redness and swelling of the joint, or new concerns. Coding Level of Care Code ED Biofuels Plant Operations Engineer for Emiliana Sanchez
== END 2023-10-04 20:42 | disposition home or self-care (01) ==
PROVIDERS: Emergency Provider Nurse Practitioner Family; PCP Nurse Practitioner
DX: L02.415 Cutaneous abscess of right lower limb (principal); Z87.891 Personal history of nicotine dependence
CPT/HCPCS: 10060; 36415; 73562; 80053; 84550; 85025; 85651; 86140; 87070; 87075; 87077; 87186; 87205; 99284

== ENCOUNTER → 2023-10-17 08:53 | Outpatient (BNVA) | payer OTHER, SELFPAY | PROVIDERS: PCP Nurse Practitioner; Visit Provider Internal Medicine Rheumatology | DX: Z79.899 Other long term (current) drug therapy (principal); M19.90 Unspecified osteoarthritis, unspecified site; M35.2 Behcet's disease; K12.1 Other forms of stomatitis; Z71.85 Encounter for immunization safety counseling; R21 Rash and other nonspecific skin eruption | CPT/HCPCS: 99215 ==

== ENCOUNTER 2023-10-31 21:30 | Emergency (ER) | payer OTHER, SELFPAY ==
[2023-10-31 21:34] VITALS: BP 143/73; PULSE 72; RESP 16; TEMP 36.8; O2SAT 98
[2023-10-31 21:50] VITALS: PULSE 72
--- NOTE | 2023-10-31 21:52 | USR_ITS ---
PROCEDURE INFORMATION: Exam: US Duplex Right Lower Extremity Veins, Limited Exam date and time: 10/31/2023 10:08 PM Age: 63 years old Clinical indication: Other: Spontaneous ecchymosis appeared 2 days ago around his right ankle. No known trauma. ; Additional info: Right-sided calf pain and swelling. Concern for dvt TECHNIQUE: Imaging protocol: Real-time duplex ultrasound of the right extremity with 2-D hayes scale, color Doppler flow and spectral waveform analysis including responses to compression and other maneuvers (when performed) with image documentation. Limited exam was focused on the right lower extremity veins. COMPARISON: CR XR knee RT 3V* [id number] 10/04/2023 3:15 PM FINDINGS: Right deep veins: Unremarkable. The common femoral, femoral, proximal profunda femoral and popliteal veins are patent without thrombus. Normal Doppler waveforms. Normal compressibility and/or augmentation response. Superficial veins: Greater saphenous vein at the saphenofemoral junction is patent without thrombus. Soft tissues: Unremarkable. US/[place] [id number] IMPRESSION: No evidence of deep vein thrombosis.
--- NOTE | 2023-10-31 21:53 | W.ED.EXTPRO ---
HPI - Extremity Problem General: Chief complaint: Extremity Problem,Nontraumatic Stated complaint: Rt Leg Purple Time Seen by Provider: 10/31/23 21:44 History of Present Illness: 63-year-old man presents emergency room with right calf pain and swelling. Says recently he had his knee drained and then was treated with antibiotics for a joint infection. Over the last few days he has developed pain in his right calf. He feels like there is swelling there. He also has some bruising around the base of his leg. No known injury. He is not on any blood thinners. No chest pain. No shortness of breath. No tachycardia. No fever. No signs of infection. No redness or warmth. Review of Systems Narrative: Constitutional symptoms: Negative except as documented in HPI. Skin symptoms: Negative except as documented in HPI. Eye symptoms: Negative except as documented in HPI. ENMT symptoms: Negative except as documented in HPI. Respiratory symptoms: Negative except as documented in HPI. Cardiovascular symptoms: Negative except as documented in HPI. Gastrointestinal symptoms: Negative except as documented in HPI. Genitourinary symptoms: Negative except as documented in HPI. Musculoskeletal symptoms: Negative except as documented in HPI. Neurologic symptoms: Negative except as documented in HPI. Psychiatric symptoms: Negative except as documented in HPI. Endocrine symptoms: Negative except as documented in HPI. PFS ED PFSH: Medical History Allergies Rash Immunization counseling High risk medication use Oral ulceration Male genital ulcer Behcet's disease Suspected Inflammatory arthritis History of chronic hypertension Surgical History History of appendectomy History of tonsillectomy Family History Other Diabetes Hypertension Stroke Denies family history of Lupus (systemic lupus erythematosus) Rheumatoid arthritis Liver disease Polycystic kidney disease Heart disease Hyperlipidemia Kidney stones Family history of premature coronary artery disease Lung disease Cancer Social History Smoking and tobacco/nicotine status: former use of tobacco/nicotine (quit 40 years ago) Alcohol intake: never Physical Exam Narrative: EXAM NARRATIVE: General: Alert, no acute distress. Skin: warm and dry Head: Normocephalic Neck: Trachea midline Eye: Extraocular movements are intact. Ears, nose, mouth and throat: Oral mucosa moist Respiratory: Respirations are non-labored Musculoskeletal: Normal ROM. There is some bruising around the lower portion of his calf. He has some pain and possibly some swelling in the calf muscle. Neurological: Alert and oriented, No focal neurological deficit observed. Psychiatric: Cooperative, appropriate mood & affect. Course Vital Signs: Vital signs: Vital Signs Temperature 98.2 F 10/31/23 21:34 Pulse Rate 72 10/31/23 21:50 Respiratory Rate 16 10/31/23 21:34 Blood Pressure 143/73 10/31/23 21:34 Pulse Oximetry 98 10/31/23 21:34 MDM - Extremity (Nontraumatic) Medical Decision Making Medical decision making: Differential diagnosis including but not limited to and based on the above HPI, review of systems and physical exam: Basic lab work including inflammatory markers Orders placed to evaluate differential diagnosis based on the above differential, HPI and physical exam Ultrasound of the lower extremity was performed. This shows no evidence of DVT. This was reviewed and interpreted by radiologist. I reviewed this interpretation. Lab Review: Laboratory results were reviewed and interpreted by myself the emergency room physician. Lab work is fairly unremarkable although he does have an acute thrombocytopenia. Is only 57. The bruising on his leg actually has some petechial type appearance and may be related to this. He may also have some bruising in his calf secondary to this. I am placing him on some steroids. I want him to follow with his primary for repeat labs in a few days I reviewed the patient's medical record. Assessment and plan: Bruising Thrombocytopenia Calf pain ? IV Solu-Medrol in the emergency room - Discharged home - Discussed plan with patient. Answered any questions. - Evaluation and treatment of this problem were appropriate in the emergency setting. Lab Data 10/31/23 22:02 10/31/23 22:02 Radiology Impressions Venous Duplex 10/31/23 21:52 IMPRESSION: No evidence of deep vein thrombosis. Laboratory Results WBC 6.15 10^3/uL (3.29-11.43) 10/31/23 22:02 RBC 3.47 10^6/uL (3.85-5.65) L 10/31/23 22:02 Hgb 11.30 g/dL (11.27-16.99) 10/31/23 22:02 Hct 34.1 % (37-53) L 10/31/23 22:02 MCV 98.3 fl (82-101) 10/31/23 22:02 MCH 32.6 pg (27-33) 10/31/23 22: MCHC 33.1 g/dL (30-55) 10/31/23 22:02 RDW 13.9 % (12.1-15.1) 10/31/23 22:02 Plt Count 57 10^3/cmm (157-399) L 10/31/23 22:02 MPV 9.2 fL (7.4-10.4) 10/31/23 22:02 Neut % (Auto) 53.1 % 10/31/23 22:02 Lymph % (Auto) 33.2 % 10/31/23 22: [place] % (Auto) 2.0 % 10/31/23 22: Eos % (Auto) 10.7 % 10/31/23 22: Baso % (Auto) 0.3 % 10/31/23 22: Neut # (Auto) 3.27 10^3/uL (1.8-7.7) 10/31/23 22:02 Lymph # (Auto) 2.0 10^3/uL (0.8-4.8) 10/31/23 22:02 [place] # (Auto) 0.1 10^3/uL (0.2-0.9) L 10/31/23 22:02 Eos # (Auto) 0.7 10^3/uL (0.0-0.8) 10/31/23 22: Baso # (Auto) 0.0 10^3/uL (0.0-0.1) 10/31/23 22: Nucleated RBC % (auto) 0 % 10/31/23 22: Nucleated RBCs # 0.0 /100WBC 10/31/23 22: ESR 6 mm/hr (0-10) 10/31/23 22: PT 14.00 SECONDS (12.1-14.9) 10/31/23 22:02 INR 1.04 (0.8-1.2) 10/31/23 22:02 APTT 27.6 SECONDS (23.9-36.7) 10/31/23 22:02 Sodium 139 mmol/L (136-145) 10/31/23 22:02 Potassium 3.9 mmol/L (3.5-5.1) 10/31/23 22:02 Chloride 105 mmol/L (98-107) 10/31/23 22:02 Carbon Dioxide 26 mmol/L (22-29) 10/31/23 22:02 Anion Gap 11.9 (5-19) 10/31/23 22:02 BUN 20 mg/dL (8-23) 10/31/23 22:02 Creatinine 0.7 mg/dL (0.7-1.2) 10/31/23 22:02 GFR Calculation 114.3 mL/min (90-130) 10/31/23 22:02 Glucose 117 mg/dL (65-115) H 10/31/23 22:02 Calculated Osmolality 292 mOsm/kg (285-295) 10/31/23 22:02 Calcium 8.3 mg/dL (8.5-10.5) L 10/31/23 22:02 Total Bilirubin 0.5 mg/dL (0.15-1.2) 10/31/23 22:02 AST 12 U/L (0-40) 10/31/23 22:02 ALT 25 U/L (0-41) 10/31/23 22:02 Alkaline Phosphatase 61 U/L (40-130) 10/31/23 22:02 C-Reactive Protein 7.7 mg/L (0.0-4.9) H 10/31/23 22:02 Total Protein 6.0 g/dL (6.6-8.7) L 10/31/23 22:02 Albumin 3.6 g/dL (3.5-5.2) 10/31/23 22:02 Globulin 2.4 g/dL (1.3-4.6) 10/31/23 22:02 All radiology interpretation(s) finalized by discharge Discharge Plan Discharge Patient Disposition: Home Clinical Impression: Thrombocytopenia Calf pain Qualifiers: Laterality: right Qualified Code(s): M79.661 - Pain in right lower leg Condition: Stable Prescriptions: New prednisone 20 mg tablet 60 mg PO DAILY Qty: 20 0RF Rx Instructions: 3 tabs (60 mg) x 3 days. 2 tabs (40 mg) x 3 days. 1 tab (20 mg) x 3 days. 1/2 tab (10 mg) x 4 days No Action montelukast [Singulair] 10 mg tablet 10 mg PO DAILY cetirizine 10 mg tablet 10 mg PO DAILY PRN albuterol sulfate 90 mcg/actuation HFA aerosol inhaler 2 puff inhalation QID PRN cholecalciferol (vitamin D3) 25 mcg (1,000 unit) capsule 25 mcg PO DAILY oxymetazoline [Afrin (oxymetazoline)] 0.05 % spray,non-aerosol 2 spray intranasal Q12H PRN triamcinolone acetonide 0.1 % cream 1 applic topical BID prednisone 20 mg tablet 10 mg PO DAILY levofloxacin 750 mg tablet 750 mg PO DAILY 6 Days Qty: 6 0RF methotrexate sodium 2.5 mg tablet See Rx Instructions PO .COMPLEX 90 Days Qty: 150 1RF Rx Instructions: Take 10 tabs on same day once a week. 5 in am and 5 in pm orally; .Q7days; folic acid 1 mg tablet 1 mg PO DAILY Qty: 90 1RF ibuprofen 200 mg Capsule 200 - 400 mg PO Q6H PRN (Reason: Pain) Hold Instructions: Doctor's Order Tylenol Extra Strength 500 mg Tablet 500 - 1,000 mg PO Q4H PRN (Reason: Pain) Discharge Orders: Discharge ED (Routine); Ordered 10/31/23 Ordered By: Ana Rosa Rodriguez Referrals: Marisela Blackmon FNP [Primary Care Provider] - 1-3 days (Please follow-up for repeat lab work to check your platelets in 3 to 5 days. If you have any signs of worsening bleeding such as gum bleeding, more bruising, or rectal bleeding please return to the emergency room) Discharge Diet: Usual diet Discharge Activity: Increase activity as tolerated Patient Instructions: Pain Management Activity Restrictions/Additional Instructions: Thank you for choosing [facility] for your healthcare needs today. Please realize this is an emergency room and that we are providing you with a medical screening exam and this may not be complete and all inclusive of all the testing and or work up that you may need to determine your ailment or severity of your illness. You have been screened and evaluated and felt safe for discharge. Health conditions do change or evolve sometimes and as such it is important that you follow up with your Primary Doctor to be re checked, 3-5 days is a general good time frame for follow up. 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
[2023-10-31 22:08] LABS: Basophils % 0.3 %; Eosinophils # 0.7 10^3/uL (0.0-0.8); Eosinophils % 10.7 %; Hematocrit 34.1 % (37-53); Lymphocytes % 33.2 %; Mean Corpuscular HGB Conc 33.1 g/dL (30-55); Mean Corpuscular Hemoglobin 32.6 pg (27-33); Mean Corpuscular Volume 98.3 fl (82-101); Mean Platelet Volume 9.2 fL (7.4-10.4); Monocytes # 0.1 10^3/uL (0.2-0.9); Neutrophils # 3.27 10^3/uL (1.8-7.7); Neutrophils % 53.1 %; Nucleated Red Blood Cells % 0 %; Platelet Count 57 10^3/cmm (157-399); Red Blood Count 3.47 10^6/uL (3.85-5.65); Red Cell Distribution Width 13.9 % (12.1-15.1); White Blood Count 6.15 10^3/uL (3.29-11.43)
[2023-10-31 22:14] LABS: Erythrocyte Sedimentation Rate 6 mm/hr (0-10)
[2023-10-31 22:23] LABS: Slide Review Slide Review Perform
[2023-10-31 22:32] LABS: Alanine Aminotransferase 25 U/L (0-41); Albumin Level 3.6 g/dL (3.5-5.2); Alkaline Phosphatase 61 U/L (40-130); Anion Gap 11.9 (5-19); Aspartate Amino Transferase 12 U/L (0-40); Blood Urea Nitrogen 20 mg/dL (8-23); C Reactive Protein 7.7 mg/L (0.0-4.9); Calcium 8.3 mg/dL (8.5-10.5); Carbon Dioxide 26 mmol/L (22-29); Chloride 105 mmol/L (98-107); Creatinine Clr Calc Pharmacy 100.5711; Globulin 2.4 g/dL (1.3-4.6); Glomerular Filtration Rate 114.3 mL/min (90-130); Glucose 117 mg/dL (65-115); Osmolality Calculated 292 mOsm/kg (285-295); Potassium 3.9 mmol/L (3.5-5.1); Sodium 139 mmol/L (136-145); Total Bilirubin 0.5 mg/dL (0.15-1.2)
[2023-10-31 22:46] LABS: INR 1.04 (0.8-1.2); Partial Thromboplastin Time 27.6 SECONDS (23.9-36.7)
[2023-10-31] MEDS: predniSONE 20 mg Tablet 60 MG PO (23:46)
[2023-10-31 23:50] VITALS: BP 118/45; PULSE 62; RESP 18; O2SAT 97
== END 2023-10-31 23:48 | disposition home or self-care (01) ==
PROVIDERS: Emergency Provider Emergency Medicine; PCP Nurse Practitioner
DX: M79.661 Pain in right lower leg (principal); D69.6 Thrombocytopenia, unspecified; Z87.891 Personal history of nicotine dependence; I10 Essential (primary) hypertension
CPT/HCPCS: 36415; 80053; 85025; 85610; 85651; 85730; 86140; 93971; 99284; J7512

== ENCOUNTER → 2023-11-05 11:20 | Outpatient (BNVA) | payer OTHER, SELFPAY | PROVIDERS: PCP Nurse Practitioner; Visit Provider Internal Medicine Rheumatology | DX: M35.2 Behcet's disease (principal); K12.1 Other forms of stomatitis; Z79.899 Other long term (current) drug therapy; Z71.85 Encounter for immunization safety counseling; M19.90 Unspecified osteoarthritis, unspecified site; R21 Rash and other nonspecific skin eruption | CPT/HCPCS: 99214 ==

== ENCOUNTER 2023-11-28 06:00 | Outpatient (CLI) | payer OTHER, SELFPAY ==
--- NOTE | 2023-11-28 06:15 | USCV_ITS ---
Mark Rodriguez Age: 63 Gender: M : 1960 Exam Date: 11/28/2023 06:12 Ordering Phys: Rashid Cardozo MD Technologist: MANN [place] [facility] [place]: EVAL FOR LEFT ILIAC ANEURYSM HISTORY: Diameter (cm) AP x Transverse x Length Velocity (cm/s) Waveform Prox Aorta: 2.60 x 2.80 x 82.80 Triphasic Mid Aorta: 2.10 x 2.60 x 93.40 Triphasic Distal Aorta: 1.90 x 1.90 x 140.20 Triphasic Right Iliac Prox: 0.90 x 0.90 x 165.20 Triphasic Left Iliac Prox: 1.00 x 1.00 x 124.70 Triphasic Stent Prox Landing x x Aneurysmal Sac Max x x Lt Lat Sac Dim Rt Lat Sac Dim Stent Dist Landing x x Right Iliac Stent x x Left Iliac Stent x x Right Renal Art Left Renal Art FINDINGS: CONCLUSIONS No evidence of Abdominal aortic aneurysm. Mild atheromatous disease Normal proximal commom iliac arteries Lenny Barajas MD (Electronically Signed) Final Date: 29 November 2023 10:14 S
== END 2023-11-28 06:01 | disposition home or self-care (01) ==
LOC: RAD 06:00
PROVIDERS: PCP Nurse Practitioner; Visit Provider Internal Medicine Rheumatology
DX: I72.3 Aneurysm of iliac artery (principal); Z79.899 Other long term (current) drug therapy; M35.2 Behcet's disease
CPT/HCPCS: 36415; 76706; 80076; 81001; 82565; 82570; 83516; 84156; 85007; 85025; 85651; 86021; 86036; 86140; 86160

== ENCOUNTER → 2023-12-11 10:34 | Outpatient (BNVA) | payer OTHER, SELFPAY | PROVIDERS: PCP Nurse Practitioner; Visit Provider Dermatology | DX: L27.0 Generalized skin eruption due to drugs and medicaments taken internally (principal) | CPT/HCPCS: 99214 ==

== ENCOUNTER → 2023-12-18 15:20 | Outpatient (BNVA) | payer OTHER, SELFPAY | PROVIDERS: PCP Nurse Practitioner; Visit Provider Dermatology | DX: L27.0 Generalized skin eruption due to drugs and medicaments taken internally (principal); L73.8 Other specified follicular disorders; D22.39 Melanocytic nevi of other parts of face; B07.8 Other viral warts | CPT/HCPCS: 99213 ==

== ENCOUNTER → 2023-12-24 14:50 | Outpatient (BNVA) | payer OTHER, SELFPAY | PROVIDERS: PCP Nurse Practitioner; Visit Provider Internal Medicine Rheumatology | DX: M35.2 Behcet's disease (principal); K12.1 Other forms of stomatitis; Z79.899 Other long term (current) drug therapy; Z71.85 Encounter for immunization safety counseling; M19.90 Unspecified osteoarthritis, unspecified site; R21 Rash and other nonspecific skin eruption; I83.93 Asymptomatic varicose veins of bilateral lower extremities | CPT/HCPCS: 99214 ==

== ENCOUNTER 2023-12-27 10:18 | Emergency (ER) | payer OTHER, SELFPAY ==
[2023-12-27 10:38] VITALS: BP 117/72; PULSE 77; RESP 16; TEMP 36.5; O2SAT 98; BMI 27.6
[2023-12-27 10:45] VITALS: BP 115/65; PULSE 80; O2SAT 99
--- NOTE | 2023-12-27 10:47 | XR_ITS ---
WS: [id number] Portable AP upright chest, 12/27/2023 Clinical Data: cough Comparison: None. Findings: No nodules, masses or effusions are seen. The heart is normal. The pulmonary vascularity is not increased. No pneumonia or pneumothorax is seen. XR/XR chest 1V portable [id number] Impression: Negative chest.
--- NOTE | 2023-12-27 10:49 | US_ITS ---
WS: [id number] RIGHT UPPER QUADRANT ULTRASOUND HISTORY: ruq pain COMPARISON: None available. Liver: 17.0 cm in length. Normal size liver and echogenicity. No bile duct dilatation or mass. Portal Vein: Normal hepatopetal flow with monophasic waveform. Gallbladder: Normally distended gallbladder with a small amount of nonshadowing sludge. No stones. CBD: 0.3 cm Pancreas: Obscured. Right kidney: 9.2 cm in length. Normal size and echogenicity. No hydronephrosis or mass. Aorta and IVC: Unremarkable abdominal aorta and IVC. No ascites. US/US gall bladder [id number] IMPRESSION: 1. Small amount of gallbladder sludge. No stones. No evidence for acute cholec ystitis. 2. Pancreas not visualized. 3. No bile duct dilatation.
--- NOTE | 2023-12-27 10:50 | ED_ITS ---
HPI - Abdominal Pain 2 General: Chief Complaint: Abdominal Pain Stated Complaint: [facility] right side Time Seen by Provider: 12/27/23 10:28 Source: patient Mode of arrival: ambulatory Limitations: no limitations History of Present Illness: 63-year-old male states that he has been having upper abdominal pain for the last week he states it has been a sharp pain in the epigastric and right upper quadrant. States been worse with movement cough and eating. He had some nausea and vomiting. He also complains of a cough but states he had a chronic cough for years no change. Associated Symptoms: Reports nausea and vomiting; Denies chills, diarrhea, dysuria and fever(s) Review of Systems 2 Const: Denies: fever(s), chills, body aches or change in appetite ENMT: Denies: throat pain or dental pain Card: Denies: chest pain Resp: Reports: productive cough; Denies: dyspnea GI: Reports: abdominal pain, nausea and vomiting; Denies: diarrhea : Denies: dysuria Musc: Denies: neck pain or back pain Skin/Breast: Denies: rash Neuro: Denies: headache(s) PFSH ED 2 PFSH: Medical History (Updated 12/27/23 @ 12:39 by Ashanti Rosen MD) Allergies Rash Immunization counseling High risk medication use Oral ulceration Male genital ulcer Behcet's disease Inflammatory arthritis History of chronic hypertension Surgical History History of appendectomy History of tonsillectomy Family History Other Diabetes Hypertension Stroke Denies family history of Lupus (systemic lupus erythematosus) Rheumatoid arthritis Liver disease Polycystic kidney disease Heart disease Hyperlipidemia Kidney stones Family history of premature coronary artery disease Lung disease Cancer Social History Smoking and tobacco/nicotine status: never used tobacco/nicotine Alcohol intake: never Physical Exam 2 Const: COMMON NORMALS: no acute distress, patient oriented x3 and healthy appearing HENMT: COMMON NORMALS: normocephalic and atraumatic HEAD & SCALP: n ormocephalic and atraumatic Neck/C-Spine: COMMON NORMALS: full ROM and supple Chest: COMMONS NORMALS: normal inspection of the chest Resp: COMMON NORMALS: normal respiratory effort, No retractions, No use of accessory muscles and clear to auscultation bilaterally AUSCULTATION: clear to auscultation bilaterally Cardio: COMMON NORMALS: regular rate, regular rhythm and No murmurs present (Cardio) RATE: regular rate RHYTHM: regular rhythm GI: COMMON NORMALS: Normal to inspection, nondistended, normoactive bowel sounds present, Soft to palpation and no masses PALPATION: Yes Soft to palpation and Yes Tenderness to palpation present (GI) Details: RUQ Extremity: COMMON NORMALS: normal to inspection and full ROM Neuro: COMMON NORMALS: patient oriented x3, moves all extremities and no focal motor deficits Psych: COMMON NORMALS: mental status grossly normal, Normal thought process present and cooperative THOUGHT PROCESS: Normal thought process present Skin: COMMON NORMALS: no rashes or lesions noted and no wounds GENERAL SKIN EXAM: no rashes or lesions noted Course 2 Vital Signs: Vital signs: Vital Signs Temperature 97.7 F 12/27/23 10:38 Pulse Rate 80 12/27/23 10:45 Respiratory Rate 18 12/27/23 11:27 Blood Pressure 115/65 12/27/23 10:45 Pulse Oximetry 98 12/27/23 11:27 Oxygen Delivery Me thod Room Air 12/27/23 10:38 MDM - Abdominal Pain Medical Decision Making Patient presents here with abdominal pain imaging here shows no acute abnormalities blood works normal as well as pains improved we will get him follow-up with surgery we will start him on pain and nausea medicine return if worsening. Medical Records I reviewed the patient's medical records. Lab Data I reviewed the patient's lab results. 12/27/23 10:38 12/27/23 10:38 Labs/Radiology: Radiology Impressions Chest X-Ray 12/27/23 10:47 Impression: Negative chest. Gallbladder Ultrasound 12/27/23 10:49 IMPRESSION: 1. Small amount of gallbladder sludge. No stones. No evidence for acute cholecystitis. 2. Pancreas not visualized. 3. No bile duct dilatation. Abdomen/Pelvis CT 12/27/23 11:25 IMPRESSION: 1. Hepatomegaly and splenomegaly similar to previous. 2. Small esophageal hiatal hernia. 3. Lung bases are well aerated. 4. No other acute findings. Laboratory Results WBC 6.19 10^3/uL (3.29-11.43) 12/27/23 10:38 RBC 3.16 10^6/uL (3.85-5.65) L 12/27/23 10:38 Hgb 10.20 g/dL (11.27-16.99) L 12/27/23 10:38 Hct 31.3 % (37-53) L 12/27/23 10:38 MCV 99.1 fl (82-101) 12/27/23 10:38 MCH 32.3 pg (27-33) 12/27/23 10:38 MCHC 32.6 g/dL (30-55) 12/27/23 10:38 RDW 15.0 % (12.1-15.1) 12/27/23 10:38 Plt Count 66 10^3/cmm (157-399) L 12/27/23 10:38 MPV 10.3 fL (7.4-10.4) 12/27/23 10:38 Neut % (Auto) 38.6 % 12/27/23 10:38 Lymph % (Auto) 47.3 % 12/27/23 10:38 [place] % (Auto) 5.0 % 12/27/23 10:38 Eos % (Auto) 3.9 % 12/27/23 10:38 Baso % (Auto) 0.5 % 12/27/23 10:38 Neut # (Auto) 2.39 10^3/uL (1.8-7.7) 12/27/23 10:38 Lymph # (Auto) 2.9 10^3/uL (0.8-4.8) 12/27/23 10:38 [place] # (Auto) 0.3 10^3/uL (0.2-0.9) 12/27/23 10:38 Eos # (Auto) 0.2 10^3/uL (0.0-0.8) 12/27/23 10:38 Baso # (Auto) 0.0 10^3/uL (0.0-0.1) 12/27/23 10:38 Nucleated RBC % (auto) 0 % 12/27/23 10:38 Nucleated RBCs # 0.0 /100WBC 12/27/23 10:38 Sodium 134 mmol/L (136-145) L 12/27/23 10:38 Potassium 4.3 mmol/L (3.5-5.1) 12/27/23 10:38 Chloride 101 mmol/L (98-107) 12/27/23 10:38 Carbon Dioxide 20 mmol/L (22-29) L 12/27/23 10:38 Anion Gap 17.3 (5-19) 12/27/23 10:38 BUN 30 mg/dL (8-23) H 12/27/23 10:38 Creatinine 1.4 mg/dL (0.7-1.2) H 12/27/23 10:38 GFR Calculation 51.4 mL/min (90-130) L 12/27/23 10:38 Glucose 111 mg/dL (65-115) 12/27/23 10:38 Calculated Osmolality 285 mOsm/kg (285-295) 12/27/23 10:38 Calcium 8.2 mg/dL (8.5-10.5) L 12/27/23 10:38 Total Bilirubin 0.8 mg/dL (0.15-1.2) 12/27/23 10:38 AST 10 U/L (0-40) 12/27/23 10:38 ALT 15 U/L (0-41) 12/27/23 10:38 Alkaline Phosphatase 46 U/L (40-130) 12/27/23 10:38 Total Protein 7.9 g/dL (6.6-8.7) 12/27/23 10:38 Albumin 3.1 g/dL (3.5-5.2) L 12/27/23 10:38 Globulin 4.8 g/dL (1.3-4.6) H 12/27/23 10:38 Lipase 23 U/L (13-60) 12/27/23 10:38 All radiology interpretation(s) finalized by discharge Discharge Plan Discharge Patient Disposition: Home Clinical Impression: Abdominal pain Condition: Stable Prescriptions: New hydrocodone-acetaminophen 5-325 mg tablet 1 tab PO Q6H PRN (Reason: pain) Qty: 14 0RF ondansetron 4 mg tablet,disintegrating 4 mg PO Q6H PRN (Reason: nausea and vomiting) Qty: 14 0RF No Action montelukast [Singulair] 10 mg tablet 10 mg PO DAILY cetirizine 10 mg tablet 10 mg PO DAILY PRN (Reason: ALLERGIES) albuterol sulfate 90 mcg/actuation HFA aerosol inhaler 2 puff inhalation QID PRN (Reason: Shortness Of Breath) cholecalciferol (vitamin D3) 25 mcg (1,000 unit) capsule 25 mcg PO DAILY oxymetazoline [Afrin (oxymetazoline)] 0.05 % spray,non-aerosol 2 spray intranasal Q12H PRN (Reason: allergies) triamcinolone acetonide 0.1 % cream 1 applic topical BID prednisone 20 mg tablet See Rx Instructions PO .COMPLEX PRN (Reason: joint pain flare) Qty: 30 1RF Rx Instructions: Take 2 tablets by mouth daily for 7 days as needed for arthritis flare. Humira Pen 40 mg/0.8 mL pen injector kit 40 mg SUBCUT Q14D Qty: 2 5RF Hold Instructions: Doctor's Order ibuprofen 200 mg Capsule 200 - 400 mg PO Q6H PRN (Reason: Pain) Hold Instructions: Doctor's Order acetaminophen [Tylenol Extra Strength] 500 mg Tablet 500 - 1,000 mg PO Q4H PRN (Reason: Pain) valacyclovir 500 mg Tablet 500 mg PO DAILY triamcinolone acetonide 0.1 % Paste 1 applic DENTAL BID Rx Instructions: use after food and/or drink and/or oral hygiene methotrexate sodium 2.5 mg Tablet See Rx Instructions .ROUTE .COMPLEX Rx Instructions: TAKE 5 TABLETS BY MOUTH IN THE AM AND 5 TABLETS IN THE PM WEEKLY FOR RHEUMATOIND ARTHRITIS. cephalexin 500 mg capsule 500 mg PO TID tacrolimus 0.1 % ointment 1 applic TOPICAL BID triamcinolone acetonide 0.1 % Ointment 1 applic TOPICAL BID PRN (Reason: red itchy rash on body) folic acid 1 mg Tablet 1 mg PO DAILY mupirocin 2 % ointment 1 applic TOPICAL BID PRN (Reason: Skin Irritation) Advair Diskus 100-50 mcg/dose Blister With Device 1 inh INHALATION BID Flonase 50 mcg/actuation [employer],Suspension 2 spray INTRANASAL DAILY PRN (Reason: Allergic Symptoms) Rx Instructions: administer into each nostril omeprazole 40 mg capsule,delayed release(DR/EC) 40 mg PO QAM Discharge Orders: Discharge ED (Routine); Ordered 12/27/23 Ordered By: Ashanti Rosen Referrals: Marco A Shaffer MD [Physician] - 1-3 days Marisela Blackmon FNP [Primary Care Provider] - Discharge Diet: Advance as tolerated Discharge Activity: Resume usual activity Patient Instructions: Abdominal Pain (ED), Opioid Safety Coding 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
[2023-12-27 10:54] LABS: Basophils % 0.5 %; Eosinophils # 0.2 10^3/uL (0.0-0.8); Eosinophils % 3.9 %; Hematocrit 31.3 % (37-53); Lymphocytes # 2.9 10^3/uL (0.8-4.8); Lymphocytes % 47.3 %; Mean Corpuscular HGB Conc 32.6 g/dL (30-55); Mean Corpuscular Hemoglobin 32.3 pg (27-33); Mean Corpuscular Volume 99.1 fl (82-101); Mean Platelet Volume 10.3 fL (7.4-10.4); Monocytes # 0.3 10^3/uL (0.2-0.9); Neutrophils # 2.39 10^3/uL (1.8-7.7); Neutrophils % 38.6 %; Nucleated Red Blood Cells % 0 %; Platelet Count 66 10^3/cmm (157-399); Red Blood Count 3.16 10^6/uL (3.85-5.65); White Blood Count 6.19 10^3/uL (3.29-11.43)
[2023-12-27 11:09] LABS: Alanine Aminotransferase 15 U/L (0-41); Albumin Level 3.1 g/dL (3.5-5.2); Alkaline Phosphatase 46 U/L (40-130); Anion Gap 17.3 (5-19); Aspartate Amino Transferase 10 U/L (0-40); Blood Urea Nitrogen 30 mg/dL (8-23); Calcium 8.2 mg/dL (8.5-10.5); Carbon Dioxide 20 mmol/L (22-29); Chloride 101 mmol/L (98-107); Globulin 4.8 g/dL (1.3-4.6); Glomerular Filtration Rate 51.4 mL/min (90-130); Glucose 111 mg/dL (65-115); Lipase 23 U/L (13-60); Osmolality Calculated 285 mOsm/kg (285-295); Potassium 4.3 mmol/L (3.5-5.1); Sodium 134 mmol/L (136-145); Total Bilirubin 0.8 mg/dL (0.15-1.2); Total Protein 7.9 g/dL (6.6-8.7)
--- NOTE | 2023-12-27 11:09 | PC.PHAR ---
[facility] 12/27/23 11:10AM
[2023-12-27 11:10] LABS: Creatinine Clr Calc Pharmacy 48.3198
[2023-12-27 11:23] LABS: Slide Review Slide Review Perform
--- NOTE | 2023-12-27 11:25 | CT_ITS ---
WS: [id number] CT ABDOMEN PELVIS TECHNIQUE: Contrast-enhanced CT of the abdomen and pelvis with coronal and sagittal reformatted image s. CLINICAL INFORMATION: abd pain COMPARISON: None. DLP: 792.[address] scans at [facility] use at least one of these dose optimization techniques: automated e xposure control; mA and/or kV adjustment per patient size (includes targeted exams where dose is matc hed to clinical indication); or iterative reconstruction. FINDINGS: Lung bases are well aerated. Chronic L5-S1 spondylolysis. Hepatomegaly. Diffuse fatty infiltration of the liver. Splenomegaly. A few small hepatic cysts. Spleen measures 14.5 cm [id number]. Small esop hageal hiatal hernia. Normal portal vein and splenic vein. Normal pancreatic parenchymal enhancement. Normal caliber abdominal aorta. Mild aortic calcification . Adrenal glands are normal. Normal renal parenchymal enhancement. No hydronephrosis. Peripelvic cyst s. Few sigmoid diverticuli. No evidence of acute diverticulitis. Mild prostate enlargement. Normal ca liber abdominal aorta. CT/CT abdomen pelvis w con* [id number] IMPRESSION: 1. Hepatomegaly and splenomegaly similar to previous. 2. Small esophageal hiatal hernia. 3. Lung bases are well aerated. 4. No other acute findings.
[2023-12-27] MEDS: sodium chloride 0.9% 1,000 ML 999 ML IV (11:26)
[2023-12-27 11:27] VITALS: RESP 18; O2SAT 98
[2023-12-27] MEDS: ondansetron 2 mg/ML SDV 2 mL 4 MG IVP (11:27)
[2023-12-27] MEDS: morphine 4 mg/mL SDV 1 mL IVP (11:27)
[2023-12-27] MEDS: iohexol 350 mg/mL 500 mL Btl (per mL) IV (12:01)
[2023-12-27 13:14] VITALS: BP 107/59; RESP 18; O2SAT 98
--- NOTE | 2023-12-27 13:26 | DCPLANNER ---
messaged gen surg for er f/u
== END 2023-12-27 13:16 | disposition home or self-care (01) ==
PROVIDERS: Emergency Provider Emergency Medicine; PCP Nurse Practitioner
DX: K82.9 Disease of gallbladder, unspecified (principal); R10.10 Upper abdominal pain, unspecified
CPT/HCPCS: 36415; 71045; 74177; 76705; 80053; 83690; 85025; 96374; 96375; 99285; J2270; J2405; J7030; Q9967

== ENCOUNTER → 2024-01-15 15:15 | Outpatient (BNVA) | payer OTHER, SELFPAY | PROVIDERS: PCP Nurse Practitioner; Visit Provider Dermatology | DX: L27.0 Generalized skin eruption due to drugs and medicaments taken internally (principal); D22.39 Melanocytic nevi of other parts of face; B07.8 Other viral warts | CPT/HCPCS: 99213 ==

== ENCOUNTER → 2024-02-06 10:58 | Outpatient (BNVA) | payer OTHER, SELFPAY | PROVIDERS: PCP Nurse Practitioner; Visit Provider Internal Medicine Rheumatology | DX: M35.2 Behcet's disease (principal); K12.1 Other forms of stomatitis; Z79.899 Other long term (current) drug therapy; Z71.85 Encounter for immunization safety counseling; R21 Rash and other nonspecific skin eruption; L98.499 Non-pressure chronic ulcer of skin of other sites with unspecified severity; M16.0 Bilateral primary osteoarthritis of hip | CPT/HCPCS: 72170; 99214 ==

== ENCOUNTER → 2024-02-12 11:02 | Outpatient (BNVA) | payer OTHER, SELFPAY | PROVIDERS: PCP Nurse Practitioner; Referring Provider Nurse Practitioner; Visit Provider Surgery | DX: R10.9 Unspecified abdominal pain (principal); D64.9 Anemia, unspecified | CPT/HCPCS: 99204 ==

== ENCOUNTER 2024-02-21 08:56 | Day surgery (SDC) | payer OTHER, SELFPAY ==
[2024-02-21] VITALS (24 sets, daily range): BP systolic 104–157; BP diastolic 57–92; PULSE 81–109; RESP 18–26; TEMP 36.3–36.6; O2SAT 90–99; BMI 29.2
[2024-02-21] MEDS: sodium chloride 0.9% 1,000 ML 30 ML IV (09:20)
--- NOTE | 2024-02-21 09:45 | ANES.PREANE2 ---
Pre-Anesthetic Assessment Height/Weight: Height 1.6 m Weight 74.843 kg Temp Pulse Resp BP Pulse Ox O2 Del Method 97.4 F L 81 18 157/92 97 Room Air 02/21/24 09:09 02/21/24 09:09 02/21/24 09:09 02/21/24 09:09 02/21/24 09:09 02/21/24 09:09 Operation Date: 02/21/24 09:55 Proposed Procedures p EGD 32026, 14064, G0105(Not Applicable) - Marco A Shaffer MD s Colonoscopy(Not Applicable) - Marco A Shaffer MD Familial anesthetic complications: None Was Beta Donaldo taken within 24 hours: N/A Was Clonidine taken within 24 hours: N/A Last intake: Intake Last Liquid Date 02/20/24 Last Liquid Time 20:00 Last Solid Date 02/19/24 Last Solid Time 19:00 Social No alcohol and No tobacco Exam alert, oriented x 3, clear to auscultation bilaterally and regular rate & rhythm Airway Mallampati: Class II Dentition: other ( my teeth are very bad, feel free to remove them all ) Musc/skel behcet's disease Anesthetic Plan ASA status: 2 Anesthesia: MAC Risk of > 500 ml blood loss (7ml/kg in children): No Medications/Allergies Home Medications Medication Instructions Recorded Confirmed Last Taken Type acetaminophen 500 mg tablet 500 - 1,000 mg PO Q4H PRN Pain 06/10/19 02/19/24 02/17/24 History (Tylenol Extra Strength) cetirizine 10 mg tablet 10 mg PO DAILY PRN ALLERGIES 07/03/23 02/19/24 02/20/24 History cholecalciferol (vitamin D3) 25 25 mcg PO DAILY 07/03/23 02/19/24 02/20/24 History mcg (1,000 unit) capsule montelukast 10 mg tablet 10 mg PO DAILY 07/03/23 02/19/24 02/20/24 History (Singulair) oxymetazoline 0.05 % nasal spray 2 spray intranasal Q12H PRN 07/03/23 02/19/24 02/21/24 05:30 History (Afrin (oxymetazoline)) allergies triamcinolone acetonide 0.1 % 1 applic topical BID 07/03/23 02/19/24 Unknown History topical cream mupirocin 2 % topical ointment 1 applic topical BID PRN Skin 12/27/23 02/21/24 2 Weeks Ago History Irritation ~02/07/24 tacrolimus 0.1 % topical ointment 1 applic topical BID 12/27/23 02/19/24 02/20/24 History triamcinolone acetonide 0.1 % 1 applic dental BID 12/27/23 02/19/24 Unknown History dental paste triamcinolone acetonide 0.1 % 1 applic topical BID PRN red itchy 12/27/23 02/21/24 3 Weeks Ago History topical ointment rash on body ~01/31/24 Allergies Allergy/AdvReac Type Severity Reaction Status Date / Time Sulfa (Sulfonamide Allergy Unknown Unknown Verified 02/12/24 11:13 Antibiotics) Penicillins Allergy ALGY-Hives Verified 02/12/24 11:13 levofloxacin AdvReac Intermediate rash Verified 02/12/24 11:13 Current Medications Generic Name Dose Route Start Last Admin Trade Name Freq PRN Reason Stop Dose Admin Sodium Chloride 1,000 mls @ 30 mls/hr 02/21/24 09:00 02/21/24 09:20 Sodium Chloride 0.9% IV 02/22/24 08:59 30 mls/hr .Q24H SHANNAN Administration PFSH Anesthesia Medical History Allergies Rash Immunization counseling High risk medication use Oral ulceration Male genital ulcer Behcet's disease Inflammatory arthritis History of chronic hypertension Surgical History History of appendectomy History of tonsillectomy Family History Other Diabetes Hypertension Stroke Denies family history of Lupus (systemic lupus erythematosus) Rheumatoid arthritis Liver disease Polycystic kidney disease Heart disease Hyperlipidemia Kidney stones Family history of premature coronary artery disease Lung disease Cancer Social History Smoking and tobacco/nicotine status: never used tobacco/nicotine Alcohol intake: never Data Anesthesia Cardiac Studies: No Data to Display
--- NOTE | 2024-02-21 09:48 | W.PM.OPSUD ---
Surgery/Procedure H&P Update DATE OF PROCEDURE: February 21, 2024 DATE H&P PERFORMED: 02/12/24 H&P UPDATE INFORMATION: I have reviewed H&P completed within last 30 days, I have examined patient prior to procedure, No changes to prior documentation and H&P is in [facility] EMR on date indicated PLANNED PROCEDURE: Operation Date: 02/21/24 09:55 Proposed Procedures p EGD 11774, 52545, G0105(Not Applicable) - Marco A Shaffer MD s Colonoscopy(Not Applicable) - Marco A Shaffer MD
[2024-02-21] MEDS: albuterol 2.5 mg/3 mL Neb INHALATION (11:50)
--- NOTE | 2024-02-21 11:53 | PC.NURSE ---
1122 received patient from procedure, Jose [employer] at bedside. Resp rate 26, labored, O2 Sat 97%, O2 mask with 8 liters O2. Lungs coarse with wheezing bilat. 1130 patient coughing hard, continue with labored breathing, lung sounds coarse and wheezing bilat 1132 Jose [employer] at bedside, request breathing tx. 1150 coughing beginning to subside, breathing less labored, RT here for breathing tx. 1155 O2 at 6L via NC, resp continue to be less labored 1158 lung sounds less coarse and wheezing diminishing. at bedside.
--- NOTE | 2024-02-21 12:10 | XR_ITS ---
WS: [id number] CHEST XRAY TECHNIQUE: Portable chest. CLINICAL INFORMATION: coughing COMPARISON: 12/27/2023 FINDINGS: Heart: Normal cardiac silhouette. Lungs: Lungs are clear. No consolidation or pleural effusion. No acute pulmonary infiltrates. Bones: Normal visualized bony structures. XR/XR chest 1V portable [id number] IMPRESSION: Lungs are well aerated. No acute chest findings.
--- NOTE | 2024-02-21 12:12 | PC.NURSE ---
1208 Dr Castro at bedside. and patient states he has these coughing fits all the time. States [facility]. [place] CXR ordered.
--- NOTE | 2024-02-21 12:14 | PC.NURSE ---
1210 patient continues to cough. Respiration continue to be less labored. Lung sounds remain coarse bilat, no wheezing.
--- NOTE | 2024-02-21 12:31 | PC.NURSE ---
1225 tana c/o headache from coughing. request tylenol. Dr Castro notified and notified of completed CXR.
[2024-02-21] MEDS: acetaminophen 500 mg Tablet 1000 MG PO (12:35)
--- NOTE | 2024-02-21 12:45 | PC.NURSE ---
1240 Patient continues to cough but not as forceably. Respiration nonlabored. O2 via NC at 2L, O2 sat 92%. When patient takes off O2, O2 sats 88%. Charge nurse, Sagrario LINDQUIST, notified to notifiy Dr Castro.
--- NOTE | 2024-02-21 12:56 | PC.NURSE ---
Dr Castro at bedside.
--- NOTE | 2024-02-21 13:16 | PC.NURSE ---
1114 patient resting quietly, resp nonlabored
--- NOTE | 2024-02-21 13:24 | PC.NURSE ---
RT here for breathing tx per Dr Castro's order
[2024-02-21] MEDS: ipratropium 0.5 mg/2.5 mL Neb 0.25 MG INHALATION (13:26)
[2024-02-21] MEDS: acetylcysteine 200 mg/mL MDV 10 mL 100 MG INHALATION (13:26)
--- NOTE | 2024-02-21 13:54 | PC.NURSE ---
patient states he feels much better. off O2, sats 92-94%. Dr Castro notified. Will come see him before discharge. Lungs CTA, nonlabored breathing.
--- NOTE | 2024-02-21 14:02 | PC.NURSE ---
Dr Castro at bedside, states patient can discharge home.
--- NOTE | 2024-02-21 14:10 | ANE.PACU2 ---
Inpatient post-anesthesia follow up: Airway intact: Yes Vital signs: Temperature 97.9 F Pulse Rate 104 Respiratory Rate 20 Blood Pressure 118/64 Pulse Oximetry 93 Oxygen Delivery Me thod Room Air Oxygen Flow Rate 2 Fraction of Inspir ed Oxygen Hydration adequate: Yes Nausea and vomiting: No Pain level: 1 Mental status: Baseline Additional Comments: Patient required intubation due to falling O2 sats during procedure caused by a severe coughing spell/possible laryngospasm. Post procedure patient continued to have severe bouts of coughing up phlegm, but he stated this was normal for him, had been happening for years, but this time it was more severe than regular. Auscultation of lungs revealed some crackles, CXR was stable post procedure to his 12/26 CXR. He experienced some difficulty being weaned off O2, with sats dropping to 88% upon removal of nasal cannula. Albuterol and mucomyst and ipratroprium treatment provided adequate relief for patient and he was successfully weaned off O2, coughing fits ceased, and he and his Patient felt ready to go home.
== END 2024-02-21 14:15 | disposition home or self-care (01) ==
PROVIDERS: PCP Nurse Practitioner; Visit Provider Surgery
PROC: 0DJ08ZZ Inspection of Upper Intestinal Tract, Via Natural or Artificial Opening Endoscopic (ICD-10-PCS; CPT 43235; principal; 2024-02-21 09:55)
PROC: 0DJD8ZZ Inspection of Lower Intestinal Tract, Via Natural or Artificial Opening Endoscopic (ICD-10-PCS; CPT 45378; 2024-02-21 09:55)
DX: D64.9 Anemia, unspecified (principal); D12.2 Benign neoplasm of ascending colon; K29.80 Duodenitis without bleeding; I10 Essential (primary) hypertension; M06.9 Rheumatoid arthritis, unspecified
CPT/HCPCS: 43239; 45380; 71045; 88305; 94640; J0330; J2704; J7030; J7608; J7613; J7644

== ENCOUNTER → 2024-03-12 14:01 | Outpatient (BNVA) | payer OTHER, SELFPAY | PROVIDERS: PCP Nurse Practitioner; Referring Provider Nurse Practitioner; Visit Provider Surgery | DX: R03.0 Elevated blood-pressure reading, without diagnosis of hypertension (principal); D64.9 Anemia, unspecified | CPT/HCPCS: 99203; 99214 ==

== ENCOUNTER 2024-03-26 14:59 | Outpatient (CLI) | payer OTHER, SELFPAY ==
--- NOTE | 2024-03-26 15:02 | CTR_ITS ---
PROCEDURE INFORMATION: Exam: CT Maxillofacial With Contrast, Sinus Exam date and time: 03/26/2024 3:56 PM Age: 63 years old Clinical indication: Sinusitis; Chronic; Prior surgery; Surgery date: 6+ months; Surgery type: Tonsils; Additional info: Chronic sinusitis TECHNIQUE: Imaging protocol: CT Maxillofacial with intravenous contrast. Focus on the sinuses. Radiation optimization: All CT scans at this facility use at least one of these dose optimization techniques: automated exposure control; mA and/or kV adjustment per patient size (includes targeted exams where dose is matched to clinical indication); or iterative reconstruction. Contrast material: OMNI 350; Contrast volume: 100 ml; Contrast route: INTRAVENOUS (IV); COMPARISON: No relevant prior studies available. RADIATION DOSE METRICS: Total DLP (mGy-cm): 445.58 FINDINGS: Frontal sinuses: No air-fluid levels. Ethmoid sinuses: No air-fluid levels. Sphenoid sinuses: No air-fluid levels. Maxillary sinuses: No air-fluid levels. Ostiomeatal units are patent. Nasal cavity: Unremarkable. Orbital cavities: Orbits are normal. Globes are unremarkable. Bones: Bony expansion and heterogeneous bone density of the left C2 posterior elements and left posterolateral C2 vertebral body with nonspecific but chronic appearance possibly Paget's disease. Soft tissues: Unremarkable. Other findings: There is intracranial atherosclerosis. CT/CT sinus w con [id number] IMPRESSION: 1. No acute findings. No evidence of sinusitis. 2. Bony expansion and heterogeneous bone density of the left C2 posterior elements and left posterolateral C2 vertebral body with nonspecific but chronic appearance possibly Paget's disease.
[2024-03-26 15:56] LABS: Blood Urea Nitrogen 16 mg/dL (8-23); Glomerular Filtration Rate 67.8 mL/min (90-130)
[2024-03-26] MEDS: iohexol 350 mg/mL 500 mL Btl (per mL) IV (16:12)
== END 2024-03-26 15:00 | disposition home or self-care (01) ==
LOC: RAD 14:59
PROVIDERS: PCP Nurse Practitioner; Visit Provider Dermatology
DX: J32.8 Other chronic sinusitis (principal); R93.0 Abnormal findings on diagnostic imaging of skull and head, not elsewhere classified
CPT/HCPCS: 70487; 82565; 84520

== ENCOUNTER 2024-03-31 11:47 | Oncology outpatient (recurring) (ONCR) | payer OTHER, SELFPAY ==
[2024-03-31 12:12] LABS: Reticulocyte % 1.7 % (0.5-2.0)
[2024-03-31 12:13] LABS: Basophils # 0.1 10^3/uL (0.0-0.1); Basophils % 0.9 %; Eosinophils # 3.2 10^3/uL (0.0-0.8); Eosinophils % 26.2 %; Hematocrit 40.8 % (37-53); Lymphocytes # 1.9 10^3/uL (0.8-4.8); Lymphocytes % 15.6 %; Mean Corpuscular HGB Conc 33.3 g/dL (30-55); Mean Corpuscular Hemoglobin 32.7 pg (27-33); Mean Corpuscular Volume 98.1 fl (82-101); Mean Platelet Volume 8.8 fL (7.4-10.4); Monocytes # 1.6 10^3/uL (0.2-0.9); Monocytes % 12.8 %; Neutrophils # 4.87 10^3/uL (1.8-7.7); Neutrophils % 39.9 %; Nucleated Red Blood Cells % 0 %; Platelet Count 159 10^3/cmm (157-399); Red Blood Count 4.16 10^6/uL (3.85-5.65); Red Cell Distribution Width 13.1 % (12.1-15.1); White Blood Count 12.23 10^3/uL (3.29-11.43)
[2024-03-31 12:38] LABS: Alanine Aminotransferase 10 U/L (0-41); Alkaline Phosphatase 96 U/L (40-130); Anion Gap 13.6 (5-19); Aspartate Amino Transferase 7 U/L (0-40); Blood Urea Nitrogen 15 mg/dL (8-23); Calcium 8.9 mg/dL (8.5-10.5); Carbon Dioxide 28 mmol/L (22-29); Chloride 100 mmol/L (98-107); Creatinine Clr Calc Pharmacy 68.8272; Ferritin 480 ng/mL (30-400); Globulin 2.5 g/dL (1.3-4.6); Glomerular Filtration Rate 75.7 mL/min (90-130); Glucose 118 mg/dL (65-115); Iron 27 ug/dL (59-158); Lactate Dehydrogenase 250 U/L (135-225); Osmolality Calculated 286 mOsm/kg (285-295); Percent Saturation 12.9 % (20-50); Potassium 4.6 mmol/L (3.5-5.1); Sodium 137 mmol/L (136-145); Total Bilirubin 0.6 mg/dL (0.15-1.2); Total Iron Binding Capacity 209 mcg/dl; Total Protein 6.5 g/dL (6.6-8.7); Unsaturated Iron Binding 182 ug/dL (112-347)
[2024-03-31 12:48] LABS: Slide Review Slide Review Perform
[2024-03-31 12:52] LABS: Folate Level 9.1 ng/mL (4.5-32.2)
[2024-04-01 19:42] LABS: Vitamin B12 > 2000 pg/mL (232-1245)
[2024-04-04 13:04] LABS: Soluble Transferrin Receptor 0.92 mg/L (0.76-1.76)
== END 2024-04-26 23:59 | disposition home or self-care (01) ==
PROVIDERS: PCP Nurse Practitioner; Visit Provider Internal Medicine Hematology & Oncology
DX: D64.9 Anemia, unspecified (principal)
CPT/HCPCS: 36415; 80053; 82607; 82728; 82746; 83010; 83540; 83550; 83615; 84238; 85025; 85045; 99204

== ENCOUNTER 2024-06-02 12:13 | Oncology outpatient (recurring) (ONCR) | payer OTHER, SELFPAY ==
[2024-06-02 12:39] LABS: Hematocrit 40.5 % (37-53); Mean Corpuscular HGB Conc 32.8 g/dL (30-55); Mean Corpuscular Hemoglobin 31.6 pg (27-33); Mean Corpuscular Volume 96.2 fl (82-101); Mean Platelet Volume 8.7 fL (7.4-10.4); Platelet Count 196 10^3/cmm (157-399); Red Blood Count 4.21 10^6/uL (3.85-5.65); Red Cell Distribution Width 14.3 % (12.1-15.1); Reticulocyte % 1.8 % (0.5-2.0); White Blood Count 13.02 10^3/uL (3.29-11.43)
[2024-06-02 12:59] LABS: Alanine Aminotransferase 7 U/L (0-41); Alkaline Phosphatase 124 U/L (40-130); Anion Gap 15.4 (5-19); Aspartate Amino Transferase 8 U/L (0-40); Blood Urea Nitrogen 16 mg/dL (8-23); Calcium 9.3 mg/dL (8.5-10.5); Carbon Dioxide 23 mmol/L (22-29); Chloride 103 mmol/L (98-107); Ferritin 264 ng/mL (30-400); Globulin 3.4 g/dL (1.3-4.6); Glomerular Filtration Rate 85.5 mL/min (90-130); Glucose 144 mg/dL (65-115); Iron 47 ug/dL (59-158); Lactate Dehydrogenase 195 U/L (135-225); Osmolality Calculated 288 mOsm/kg (285-295); Percent Saturation 20.4 % (20-50); Potassium 4.4 mmol/L (3.5-5.1); Sodium 137 mmol/L (136-145); Total Bilirubin 0.7 mg/dL (0.15-1.2); Total Iron Binding Capacity 230 mcg/dl; Total Protein 7.4 g/dL (6.6-8.7); Unsaturated Iron Binding 183 ug/dL (112-347)
[2024-06-02 13:12] LABS: Slide Review Slide Review Perform
[2024-06-02 13:13] LABS: Absolute Eosinophils 0.5 10^3/cmm (0.0-0.7); Absolute Neutrophil 9.6 10^3/cmm (1.4-6.5); Absolute Segmented Neutrophil 8.9 10/cmm (1.6-7.1); Band Neutrophils Absolute 0.8 10^3/cmm (0.0-1.2); Basophils Absolute 0.1 10^3/cmm (0.0-0.2); Eosinophils 4 %; Giant Platelets Trace; Lymphocytes 17 %; Lymphocytes Absolute 2.2 10^3/cmm (1.2-3.4); Monocytes Absolute 0.4 10^3/cmm (0.1-0.6); Platelet Estimate Normal (Normal); Segmented Neutrophils 68 %; Total Cells Counted 100 (0-100)
[2024-06-02 13:16] LABS: Folate Level 10.9 ng/mL (4.5-32.2)
[2024-06-02 13:31] LABS: Vitamin B12 > 2000 pg/mL (232-1245)
[2024-06-06 11:54] LABS: Soluble Transferrin Receptor 1.28 mg/L (0.76-1.76)
== END 2024-06-27 23:59 | disposition home or self-care (01) ==
PROVIDERS: Internal Medicine Hematology & Oncology; Absent Provider Internal Medicine; PCP Nurse Practitioner; Visit Provider Internal Medicine Rheumatology
DX: D64.9 Anemia, unspecified (principal)
CPT/HCPCS: 36415; 80053; 82607; 82728; 82746; 83010; 83540; 83550; 83615; 84238; 85007; 85025; 85045; 99214

== ENCOUNTER → 2024-06-17 10:08 | Outpatient (BNVA) | payer OTHER, SELFPAY | PROVIDERS: PCP Nurse Practitioner; Visit Provider Internal Medicine Rheumatology | DX: M35.2 Behcet's disease (principal); K12.1 Other forms of stomatitis; Z79.899 Other long term (current) drug therapy; Z71.85 Encounter for immunization safety counseling; M19.90 Unspecified osteoarthritis, unspecified site; R21 Rash and other nonspecific skin eruption | CPT/HCPCS: 99215 ==

== ENCOUNTER → 2024-07-03 13:30 | Outpatient (BNVA) | payer OTHER, SELFPAY | PROVIDERS: PCP Nurse Practitioner; Visit Provider Dermatology | DX: M35.2 Behcet's disease (principal); L30.9 Dermatitis, unspecified | CPT/HCPCS: 11102; 99214 ==

== ENCOUNTER 2024-07-14 12:30 | Oncology outpatient (recurring) (ONCR) | payer OTHER, SELFPAY ==
[2024-06-30] MEDS: sodium chloride 0.9% 250 ML 75 ML IV (12:57)
[2024-06-30] MEDS: acetaminophen 325 mg Tablet 650 MG PO (12:58)
[2024-06-30] MEDS: diphenhydrAMINE 50 mg/mL SDV 1mL 25 MG IVP (13:01)
[2024-06-30] MEDS: methylPREDNISolone sod succ 40 mg/mL INJ IVP (13:06)
[2024-06-30] MEDS: infliximab-abda 400 MG in sodium chloride 0.9% 250 ML 10 MG IV (13:40)
[2024-06-30 13:43] VITALS: BP 115/74; PULSE 56; O2SAT 96
[2024-06-30 14:00] VITALS: BP 112/70; PULSE 58; RESP 16; TEMP 36.4; O2SAT 96
[2024-06-30 14:15] VITALS: BP 110/68; PULSE 54; RESP 16; TEMP 36.8; O2SAT 96
[2024-06-30 14:30] VITALS: BP 106/63; PULSE 54; RESP 17; TEMP 36.7; O2SAT 94
[2024-06-30 14:45] VITALS: BP 101/63; PULSE 51; RESP 16; TEMP 36.9; O2SAT 94
[2024-06-30 16:04] VITALS: BP 135/77; PULSE 17; PULSE 59; RESP 16; TEMP 36.5; TEMP 36.6; O2SAT 97
[2024-07-14] MEDS: acetaminophen 325 mg Tablet 650 MG PO (12:44)
[2024-07-14] MEDS: sodium chloride 0.9% 250 ML 75 ML IV (12:45)
[2024-07-14] MEDS: diphenhydrAMINE 50 mg/mL SDV 1mL 25 MG IVP (12:48)
[2024-07-14] MEDS: methylPREDNISolone sod succ 40 mg/mL INJ IVP (12:52)
[2024-07-14] MEDS: infliximab-abda 400 MG in sodium chloride 0.9% 250 ML 10 MG IV (13:19)
[2024-07-14 13:20] VITALS: BP 118/72; PULSE 69; RESP 16; TEMP 36.4; O2SAT 97
[2024-07-14 13:35] VITALS: BP 114/67; PULSE 68; RESP 16; TEMP 36.6; O2SAT 96
[2024-07-14 13:50] VITALS: BP 113/68; PULSE 65; RESP 17; TEMP 36.6; O2SAT 95
[2024-07-14 14:05] VITALS: BP 114/70; PULSE 67; RESP 16; TEMP 36.4; O2SAT 96
[2024-07-14 14:44] VITALS: BP 111/69; PULSE 63; RESP 16; TEMP 36.4; O2SAT 96
[2024-07-14 15:55] VITALS: BP 116/74; PULSE 67; RESP 16; TEMP 36.4; O2SAT 96
== END 2024-07-25 23:59 | disposition home or self-care (01) ==
PROVIDERS: Absent Provider Internal Medicine; PCP Nurse Practitioner; Visit Provider Internal Medicine Rheumatology
DX: Z53.9 Procedure and treatment not carried out, unspecified reason (principal); M35.2 Behcet's disease; Z79.620 Long term (current) use of immunosuppressive biologic
CPT/HCPCS: 96365; 96366; 96375; 96413; 96415; A4222; J1200; J2919; J7050; Q5104

== ENCOUNTER → 2024-07-15 09:11 | Outpatient (BNVA) | payer OTHER, SELFPAY | PROVIDERS: PCP Nurse Practitioner; Visit Provider Internal Medicine Rheumatology | DX: M35.2 Behcet's disease (principal); K12.1 Other forms of stomatitis; Z79.899 Other long term (current) drug therapy; Z71.85 Encounter for immunization safety counseling; M19.90 Unspecified osteoarthritis, unspecified site; R21 Rash and other nonspecific skin eruption | CPT/HCPCS: 99215 ==

== ENCOUNTER → 2024-07-22 15:09 | Outpatient (BNVA) | payer OTHER, SELFPAY | PROVIDERS: PCP Nurse Practitioner; Visit Provider Dermatology | DX: M35.2 Behcet's disease (principal); N48.5 Ulcer of penis | CPT/HCPCS: 99214 ==

== ENCOUNTER 2024-07-23 13:44 | Outpatient (CLI) | payer OTHER, SELFPAY ==
[2024-07-23 15:32] LABS: Hepatitis A Antibody IgM Non-Reactive (Nonreactive); Hepatitis B Core AB, Total Non-Reactive (Nonreactive); Hepatitis B Surface AB < 3.5 (11.5-1000); Hepatitis B Surface Antigen Non-Reactive (Nonreactive); Hepatitis C Virus Antibody Non-Reactive (Nonreactive)
[2024-07-24 14:44] LABS: RPR w(Moniotor) w/REFL Titer NON-REACTIVE (NON-REACTIVE)
== END 2024-07-23 13:45 | disposition home or self-care (01) ==
LOC: LAB 13:53
PROVIDERS: PCP Nurse Practitioner; Visit Provider Dermatology
DX: M35.2 Behcet's disease (principal); N48.5 Ulcer of penis
CPT/HCPCS: 36415; 86592; 86705; 86706; 86709; 86803; 87340

== ENCOUNTER 2024-08-11 09:30 | Oncology outpatient (recurring) (ONCR) | payer OTHER, SELFPAY ==
[2024-07-30 13:31] VITALS: BP 121/73; PULSE 54; RESP 16; TEMP 36.6; O2SAT 97
[2024-07-31 13:55] VITALS: BP 134/74; PULSE 71; RESP 16; TEMP 37; O2SAT 99
[2024-07-31 15:05] VITALS: BP 111/69; PULSE 73; RESP 18; TEMP 36.8; O2SAT 97
[2024-08-01 09:11] VITALS: BP 129/76; PULSE 71; RESP 17; TEMP 36.9; O2SAT 98
[2024-08-11] MEDS: acetaminophen 325 mg Tablet 650 MG PO (10:28)
[2024-08-11] MEDS: sodium chloride 0.9% 250 ML 75 ML IV (10:29)
[2024-08-11] MEDS: diphenhydrAMINE 50 mg/mL SDV 1mL 25 MG IVP (10:30)
[2024-08-11] MEDS: methylPREDNISolone sod succ 40 mg/mL INJ IVP (10:35)
[2024-08-11] MEDS: infliximab-abda 400 MG in sodium chloride 0.9% 250 ML 250 MG IV (11:12)
[2024-08-11 12:32] VITALS: BP 121/73; PULSE 76; RESP 16; TEMP 36.5; O2SAT 96
== END 2024-08-25 23:59 | disposition home or self-care (01) ==
PROVIDERS: Absent Provider Internal Medicine; PCP Nurse Practitioner; Visit Provider Internal Medicine Rheumatology
DX: Z53.9 Procedure and treatment not carried out, unspecified reason (principal); M35.2 Behcet's disease; Z79.899 Other long term (current) drug therapy
CPT/HCPCS: 96365; 96375; A4222; J1200; J2919; J7050; J9999; Q5104

== ENCOUNTER → 2024-08-12 10:46 | Outpatient (BNVA) | payer OTHER, SELFPAY | PROVIDERS: PCP Nurse Practitioner; Visit Provider Dermatology | DX: M35.2 Behcet's disease (principal) | CPT/HCPCS: 99214 ==

== ENCOUNTER 2024-08-27 08:12 | Emergency (ER) | payer OTHER, SELFPAY ==
[2024-08-27 08:20] VITALS: BP 185/96; PULSE 76; RESP 18; TEMP 36.6; O2SAT 98; BMI 28.3
[2024-08-27 08:29] VITALS: PULSE 102
--- NOTE | 2024-08-27 08:50 | ED_ITS ---
HPI - Abdominal Pain 2 General: Chief Complaint: Abdominal Pain Stated Complaint: abd pain Time Seen by Provider: 08/27/24 08:50 History of Present Illness: Patient presents to the ER with generalized muscle aches pains abdominal pain. This started about 4 days ago. Patient is on immunosuppressants for his Behcet's disease. Patient denies any diarrhea hematochezia fevers chills. Patient does have history of an appendectomy, denies any constipation. Related Data Home Medications ?Medication ?Instructions ?Recorded ?Confirmed acetaminophen 500 mg tablet 500 - 1,000 mg PO Q4H PRN Pain 06/10/19 08/27/24 (Tylenol Extra Strength) cetirizine 10 mg tablet 10 mg PO DAILY PRN ALLERGIES 07/03/23 08/27/24 cholecalciferol (vitamin D3) 25 25 mcg PO DAILY 08/27/24 mcg (1,000 unit) capsule montelukast 10 mg tablet 10 mg PO DAILY 07/03/2307/22 (Singulair) oxymetazoline 0.05 % nasal spray 2 spray intranasal Q1 2H PRN 07/03/23 08/27/24 (Afrin (oxymetazoline)) allergies mupirocin 2 % topical ointment 1 applic topical BID GA N Skin 12/27/23 08/27/24 Irritation tacrolimus 0.1 % topical ointment 1 applic topical BID PRN Skin 12/27/23 08/27/24 Irritation triamcinolone acetonide 0.1 % 1 applic topical BID PRN red itchy 12/27/23 08/27/24 topical ointment rash on body clobetasol 0.05 % topical ointment See Rx Instructions .Route .COMPLEX 08/27/24 08/27/24 diphenhydramine HCl 25 mg capsule 25 mg PO TID PRN Itc ollie 08/27/24 08/27/24 (Benadryl) pantoprazole 40 mg tablet,delayed 40 mg PO QAM 5 08/27/24 release Previous Rx's ?Medication ?Instructions ?Recorded prednisone 10 mg tablet See Rx Instructions .Route 0 06/17/24 .COMPLEX joint pain #90 tabs tramadol 50 mg tablet 50 mg PO TID PRN pain #60 ta bs 07/03/24 tizanidine 4 mg capsule 4 mg PO Q8H PRN muscle spast icity 07/29/24 #30 caps apremilast 30 mg tablet (Otezla) 30 mg PO BID #60 tabs 08/04/24 colchicine 0.6 mg tablet 0.6 mg PO BID #60 tabs 08/11 Allergies Allergy/AdvReac Type Severity Reaction Status Date / Time Sulfa (Sulfonamide Allergy Unknown Unknown Verified 07/15/24 09:32 Antibiotics) Penicillins Allergy ALGY-Hives Verified 07/15/24 09:32 methotrexate AdvReac Severe severe Verified 07/15/24 09:32 decrease WBC's levofloxacin AdvReac Intermediate rash Verified 07/15/24 09:32 Review of Systems 2 General: Reports: 10 or more systems reviewed and unremarkable except in HPI and below PFSH ED 2 PFSH: Medical History Allergies Rash Immunization counseling High risk medication use Oral ulceration Male genital ulcer Behcet's disease Inflammatory arthritis History of chronic hypertension Surgical History History of appendectomy History of tonsillectomy Family History Other Diabetes Hypertension Stroke Denies family history of Lupus (systemic lupus erythematosus) Rheumatoid arthritis Liver disease Polycystic kidney disease Heart disease Hyperlipidemia Kidney stones Family history of premature coronary artery disease Lung disease Cancer Social History Smoking and tobacco/nicotine status: never used tobacco/nicotine Alcohol intake: never Physical Exam 2 Const: COMMON NORMALS: no acute distress, average body habitus, patient oriented x3, no limitations, healthy appearing, alert and well nourished HENMT: COMMON NORMALS: normocephalic, atraumatic, hearing grossly normal bilaterally, external ears normal, Normal external nose present and moist oral mucous membranes; oropharynx not normal (Whitish plaque and ulceration on posterior soft palate region) HEAD & SCALP: normocephalic and atraumatic NOSE: Normal external nose present EXTERNAL EAR: Yes external ears normal Eye: COMMON NORMALS: Equal, round and reactive pupils present, EOMs intact bilaterally, conjunctivae normal and no scleral icterus CONJUNCTIVA: Yes conjunctivae normal PUPIL: Yes Equal, round and reactive pupils present Neck/C-Spine: COMMON NORMALS: no JVD Chest: COMMONS NORMALS: normal inspection of the chest and normal palpation of entire chest wall Resp: COMMON NORMALS: normal respiratory effort, No retractions, No use of accessory muscles and clear to auscultation bilaterally AUSCULTATION: clear to auscultation bilaterally Cardio: COMMON NORMALS: no JVD, regular rate, regular rhythm, S1 normal heart sound present, S2 normal heart sound present, No gallops present (Cardio), No clicks present (Cardio), No murmurs present (Cardio) and No rub (Cardio) R ATE: regular rate RHYTHM: regular rhythm HEART SOUNDS: S1 normal heart sound present and S2 normal heart sound present GI: COMMON NORMALS: Normal to inspection, nondistended, normoactive bowel sounds present, Soft to palpation, non-tender, No hepatosplenomegaly present and no masses PALPATION: Yes Soft to palpation and Yes No hepatosplenomegaly present Neuro: COMMON NORMALS: patient oriented x3 SENSORIUM/ORIENTATION: Yes alert Course 2 Vital Signs: Vital signs: Vital Signs Temperature 97.8 F 08/27/24 08:20 Pulse Rate 89 08/27/24 11:46 Respiratory Rate 18 08/27/24 08:20 Blood Pressure 123/73 08/27/24 11:46 Pulse Oximetry 96 08/27/24 11:46 Oxygen Delivery Me thod Room Air 08/27/24 11:00 MDM - Abdominal Pain Medical Decision Making Lab work reviewed all essentially unremarkable, specific gravity is 1.030, patient was given Toradol and GI cocktail he said these helped minimally. These results was discussed with the patient patient will follow-up with the bell staff to see if it is a medication side effect. Medical Records I reviewed the patient's medical records. Lab Data I reviewed the patient's lab results. 08/27/24 08:35 08/27/24 08:35 Labs/Radiology: Laboratory Results WBC 14.69 10^3/uL (3.29-11.43) H 08/27/24 08:35 RBC 4.20 10^6/uL (3.85-5.65) 08/27/24 08:35 Hgb 14.00 g/dL (11.27-16.99) 08/27/24 08:35 Hct 41.3 % (37-53) 08/27/24 08:35 MCV 98.3 fl (82-101) 08/27/24 08:35 MCH 33.3 pg (27-33) H 08/27/24 08:35 MCHC 33.9 g/dL (30-55) 08/27/24 08:35 RDW 17.6 % (12.1-15.1) H 08/27/24 08:35 Plt Count 237 10^3/cmm (157-399) 08/27/24 08:35 MPV 8.8 fL (7.4-10.4) 08/27/24 08:35 Lymph % (Auto) Not Reportable 08/27/24 08:35 [place] % (Auto) Not Reportable 08/27/24 08:35 Lymph # (Auto) Not Reportable 08/27/24 08:35 [place] # (Auto) Not Reportable 08/27/24 08:35 Total Counted 100 (0-100) 08/27/24 08:35 Atypical Lymphs % 4.0 % (0-5) 08/27/24 08:35 Absolute Neutrophils 11.8 10^3/cmm (1.4-6.5) H 08/27/24 08:35 Segmented Neutrophils 62 % 08/27/24 08:35 Band Neutrophils 18.0 % 08/27/24 08:35 Absolute Lymphocytes 1.9 10^3/cmm (1.2-3.4) 08/27/24 08:35 Lymphocytes (Manual) 9 % 08/27/24 08:35 Monocytes (Manual) 3.0 % 08/27/24 08:35 Absolute Monocytes 0.4 10^3/cmm (0.1-0.6) 08/27/24 08:35 Eosinophils (Manual) 2 % 08/27/24 08:35 Absolute Eosinophils 0.3 10^3/cmm (0.0-0.7) 08/27/24 08:35 Basophils (Manual) 0.0 % 08/27/24 08:35 Absolute Basophils 0.0 10^3/cmm (0.0-0.2) 08/27/24 08:35 Metamyelocytes 1.0 % 08/27/24 08:35 Myelocytes 1.0 % 08/27/24 08:35 Platelet Estimate Normal (Normal) 08/27/24 08:35 Polychromasia Trace 08/27/24 08:35 Macrocytosis Trace 08/27/24 08:35 Sodium 135 mmol/L (136-145) L 08/27/24 08:35 Potassium 3.6 mmol/L (3.5-5.1) 08/27/24 08:35 Chloride 99 mmol/L (98-107) 08/27/24 08:35 Carbon Dioxide 24 mmol/L (22-29) 08/27/24 08:35 Anion Gap 15.6 (5-19) 08/27/24 08:35 BUN 22 mg/dL (8-23) 08/27/24 08:35 Creatinine 0.8 mg/dL (0.7-1.2) 08/27/24 08:35 GFR Calculation 97.6 mL/min (90-130) 08/27/24 08:35 Glucose 117 mg/dL (65-115) H 08/27/24 08:35 Calculated Osmolality 284 mOsm/kg (285-295) L 08/27/24 08:35 Lactic Acid 1.4 mmol/L (0.5-2.2) 08/27/24 08:35 Calcium 8.3 mg/dL (8.5-10.5) L 08/27/24 08:35 Total Bilirubin 0.7 mg/dL (0.15-1.2) 08/27/24 08:35 AST 6 U/L (0-40) 08/27/24 08:35 ALT 8 U/L (0-41) 08/27/24 08:35 Alkaline Phosphatase 65 U/L (40-130) 08/27/24 08:35 Creatine Kinase 10 U/L (39-308) L 08/27/24 08:35 C-Reactive Protein 31.2 mg/L (0.0-4.9) H 08/27/24 08:35 Total Protein 6.5 g/dL (6.6-8.7) L 08/27/24 08:35 Albumin 3.5 g/dL (3.5-5.2) 08/27/24 08:35 Globulin 3.0 g/dL (1.3-4.6) 08/27/24 08:35 Lipase 16 U/L (13-60) 08/27/24 08:35 Procalcitonin 0.17 ng/mL (0-0.5) 08/27/24 08:35 Urine Color Dark yellow (Yellow) A 08/27/24 08:58 Urine Appearance Slightly cloudy (CLEAR) 08/27/24 08:58 Urine pH 5 (5-7) 08/27/24 08:58 Ur Specific [place] 1.030 (1.005-1.030) 08/27/24 08:58 Urine Protein Trace (Negative) 08/27/24 08:58 Urine Glucose (UA) Norm (Normal) 08/27/24 08:58 Urine Ketones Negative (Negative) 08/27/24 08:58 Urine Blood 2+ (Negative) H 08/27/24 08:58 Urine Nitrate Negative (Negative) 08/27/24 08:58 Urine Bilirubin Neg (Negative) 08/27/24 08:58 Urine Urobilinogen Norm mg/dL (Negative) 08/27/24 08:58 Ur Leukocyte Esterase Negative (Negative) 08/27/24 08:58 Urine RBC 6-10 /hpf (0-2) 08/27/24 08:58 Urine WBC 0-5 /hpf (0-5) 08/27/24 08:58 Ur Squamous Epith Cells 0-5 /hpf (0-5) 08/27/24 08:58 Amorphous Sediment Not Reportable 08/27/24 08:58 Urine Bacteria None seen /hpf (NONE) 08/27/24 08:58 Hyaline Casts 12.81 /lpf 08/27/24 08:58 Influenza A (PCR) Negative (Negative) 08/27/24 09:55 Influenza Type B (PCR) Negative (Negative) 08/27/24 09:55 RSV (PCR) Negative (Negative) 08/27/24 09:55 SARS-CoV-2 (PCR) Negative (Negative) 08/27/24 09:55 Group A Strep Rapid Negative (Negative) 08/27/24 09:55 All radiology interpretation(s) finalized by discharge Discharge Plan Discharge Patient Disposition: Home Clinical Impression: Behcet's disease, Myalgia Condition: Stable Prescriptions: No Action montelukast [Singulair] 10 mg tablet 10 mg PO DAILY cetirizine 10 mg tablet 10 mg PO DAILY PRN (Reason: ALLERGIES) cholecalciferol (vitamin D3) 25 mcg (1,000 unit) capsule 25 mcg PO DAILY oxymetazoline [Afrin (oxymetazoline)] 0.05 % spray,non-aerosol 2 spray intranasal Q12H PRN (Reason: allergies) prednisone 10 mg tablet See Rx Instructions .Route .COMPLEX Qty: 90 1RF Rx Instructions: Take 40mg daily [id number], 30mg QD x5days, then 20mg QD x5days, 15mg x5days stay on 10mg QD tramadol 50 mg tablet 50 mg PO TID PRN (Reason: pain) Qty: 60 0RF tizanidine 4 mg capsule 4 mg PO Q8H PRN (Reason: muscle spasticity) Qty: 30 0RF Otezla 30 mg tablet 30 mg PO BID Qty: 60 0RF colchicine 0.6 mg tablet 0.6 mg PO BID Qty: 60 0RF acetaminophen [Tylenol Extra Strength] 500 mg Tablet 500 - 1,000 mg PO Q4H PRN (Reason: Pain) tacrolimus 0.1 % ointment 1 applic TOPICAL BID PRN (Reason: Skin Irritation) triamcinolone acetonide 0.1 % Ointment 1 applic TOPICAL BID PRN (Reason: red itchy rash on body) mupirocin 2 % ointment 1 applic TOPICAL BID PRN (Reason: Skin Irritation) diphenhydramine HCl [Benadryl] 25 mg Capsule 25 mg PO TID PRN (Reason: Itching) clobetasol 0.05 % ointment See Rx Instructions .ROUTE .COMPLEX Rx Instructions: APPLY TO THE AFFECTED AREA(S) OF SKIN ON ARMS AND TRUNK TWICE DAILY FOR NO MORE THAN TWO WEEKS PER MONTH. pantoprazole 40 mg tablet,delayed release (DR/EC) 40 mg PO QAM Discharge Orders: Discharge ED (Routine); Ordered 08/27/24 Ordered By: Guillermo Connell Referrals: Marisela Blackmon ASSISTED LIVING CARE MANAGER [Primary Care Provider] - 1 week Patient Instructions: Myalgia, Musculoskeletal Pain (ED) Activity Restrictions/Additional Instructions: Thank you for choosing [facility] for your healthcare needs today. Please realize that you were seen in the emergency department and that we are providing you with an emergency medical screening exam and this may not be a complete and all exclusive of all testing and/or medical workup we may need to determine your element or severity of your illness. It is very important that you follow-up as instructed with your primary care provider or specialist for the additional evaluation and to discuss your medical treatment plan. You may return to the emergency department should you have concerns or if your condition changes or worsens in any way. Print Language: Nicaraguan Coding Level of Care Code ED Internet Site Designer for Emiliana Sanchez
[2024-08-27 08:53] LABS: Hematocrit 41.3 % (37-53); Mean Corpuscular HGB Conc 33.9 g/dL (30-55); Mean Corpuscular Hemoglobin 33.3 pg (27-33); Mean Corpuscular Volume 98.3 fl (82-101); Mean Platelet Volume 8.8 fL (7.4-10.4); Platelet Count 237 10^3/cmm (157-399); Red Cell Distribution Width 17.6 % (12.1-15.1); White Blood Count 14.69 10^3/uL (3.29-11.43)
[2024-08-27 09:04] LABS: Alanine Aminotransferase 8 U/L (0-41); Albumin Level 3.5 g/dL (3.5-5.2); Alkaline Phosphatase 65 U/L (40-130); Anion Gap 15.6 (5-19); Aspartate Amino Transferase 6 U/L (0-40); Blood Urea Nitrogen 22 mg/dL (8-23); C Reactive Protein 31.2 mg/L (0.0-4.9); Calcium 8.3 mg/dL (8.5-10.5); Carbon Dioxide 24 mmol/L (22-29); Chloride 99 mmol/L (98-107); Creatine Phosphokinase 10 U/L (39-308); Glomerular Filtration Rate 97.6 mL/min (90-130); Glucose 117 mg/dL (65-115); Lipase 16 U/L (13-60); Osmolality Calculated 284 mOsm/kg (285-295); Potassium 3.6 mmol/L (3.5-5.1); Sodium 135 mmol/L (136-145); Total Bilirubin 0.7 mg/dL (0.15-1.2); Total Protein 6.5 g/dL (6.6-8.7)
[2024-08-27 09:19] LABS: Bacteria Urine None Seen /hpf; Hyaline Casts Urine 12.81 /lpf; Squamous Epithelial Cell Urine 0-5 /hpf (0-5); WBC Urine 0-5 /hpf (0-5)
[2024-08-27 09:23] LABS: Urine Appearance Slightly Cloudy (CLEAR); Urine Color Dark Yellow (Yellow); pH Urine 5 (5-7)
[2024-08-27 09:24] LABS: Add Urine Microscopic? YES; Bilirubin Urine Neg (Negative); Blood Urine 2+ (Negative); Glucose Urine UA Norm (Normal); Ketones Urine Negative (Negative); Leukocyte Esterase Urine Negative (Negative); Nitrate Urine Negative (Negative); Protein Urine Trace (Negative); Urobilinogen Urine Norm (Negative)
[2024-08-27 09:37] LABS: Absolute Eosinophils 0.3 10^3/cmm (0.0-0.7); Absolute Segmented Neutrophil 9.1 10/cmm (1.6-7.1); Band Neutrophils Absolute 2.6 10^3/cmm (0.0-1.2); Eosinophils 2 %; Lymphocytes 9 %; Monocytes Absolute 0.4 10^3/cmm (0.1-0.6); Segmented Neutrophils 62 %; Slide Review Slide Review Perform; Total Cells Counted 100 (0-100)
[2024-08-27 09:38] LABS: Absolute Neutrophil 11.8 10^3/cmm (1.4-6.5); Lymphocytes Absolute 1.9 10^3/cmm (1.2-3.4); Macrocytosis Trace; Platelet Estimate Normal (Normal); Polychromasia Trace
[2024-08-27 10:04] LABS: Lactic Sepsis W/Reflex 1.4 mmol/L (0.5-2.2)
--- NOTE | 2024-08-27 10:11 | PC.PHAR ---
Addendum entered by Stephanie Del Valle 08/27/24 10:12: Pt stopped taking the Colchicine 0.6mg due to feeling worse when taking. Prednisone is reduced to 15mg daily currently and sees the doctor next week. Original Note: [facility] written [facility]. Pt last took medications yesterday 08/26/24.
[2024-08-27 10:13] LABS: Procalcitonin 0.17 ng/mL (0-0.5)
[2024-08-27 10:25] LABS: Rapid Strep A Test Negative (Negative)
[2024-08-27] MEDS: ketorolac 30 mg/mL INJ IVP (10:56)
[2024-08-27 10:57] VITALS: BP 138/76; PULSE 91; O2SAT 97
[2024-08-27] MEDS: lidocaine 2% viscous 15 ML, aluminum-mag hydrox-simethicon 30 ML, sucralfate oral liq 1 GM PO (10:57)
[2024-08-27 11:00] VITALS: BP 127/75; PULSE 84; O2SAT 95
[2024-08-27 11:00] LABS: Influenza A NEGATIVE (Negative); Influenza B NEGATIVE (Negative); Respiratory Syncytial Virus Ce NEGATIVE (Negative); SARS-CoV-2 PCR NEGATIVE (Negative)
[2024-08-27 11:46] VITALS: BP 123/73; PULSE 89; O2SAT 96
== END 2024-08-27 11:48 | disposition home or self-care (01) ==
PROVIDERS: Emergency Provider Emergency Medicine; PCP Nurse Practitioner
DX: M35.2 Behcet's disease (principal); M79.10 Myalgia, unspecified site; Z11.52 Encounter for screening for COVID-19; I10 Essential (primary) hypertension
CPT/HCPCS: 36415; 80053; 81001; 82550; 83605; 83690; 84145; 85007; 85025; 86140; 87040; 87081; 87637; 87880; 96374; 99284; J1885; J9999

== ENCOUNTER 2024-08-29 09:12 | Emergency (ER) | payer OTHER, SELFPAY ==
[2024-08-29] VITALS (22 sets, daily range): BP systolic 105–141; BP diastolic 62–97; PULSE 68–96; RESP 17–18; TEMP 36.5; O2SAT 94–100; BMI 28.3
[2024-08-29 09:46] LABS: Basophils # 0.1 10^3/uL (0.0-0.1); Basophils % 0.6 %; Eosinophils # 0.1 10^3/uL (0.0-0.8); Eosinophils % 0.7 %; Lymphocytes # 1.2 10^3/uL (0.8-4.8); Lymphocytes % 11.4 %; Mean Corpuscular HGB Conc 33.8 g/dL (30-55); Mean Corpuscular Hemoglobin 33.6 pg (27-33); Mean Corpuscular Volume 99.2 fl (82-101); Mean Platelet Volume 8.7 fL (7.4-10.4); Monocytes # 0.5 10^3/uL (0.2-0.9); Monocytes % 4.7 %; Neutrophils % 73.8 %; Nucleated Red Blood Cells % 0 %; Platelet Count 237 10^3/cmm (157-399); Red Blood Count 3.93 10^6/uL (3.85-5.65); Red Cell Distribution Width 17.1 % (12.1-15.1); White Blood Count 10.17 10^3/uL (3.29-11.43)
--- NOTE | 2024-08-29 09:51 | W.ED.GENADLT ---
Documented by User: THUY Pruitt 08/29/24 15:06 HPI - General Adult General: Chief complaint: General Medical Stated complaint: muscle aches/swelling Time Seen by Provider: 08/29/24 09:22 Source: patient and family () Mode of arrival: ambulatory Limitations: no limitations History of Present Illness: Patient is a 64-year-old male who presents today with complaint of diffuse body aches/muscle weakness and feeling swollen-mainly to his arms/face. He has a known history of Behcet's disease. Follows with rheumatology and dermatology through [facility] and on Remicade and Otezla. He is normally very active but feels like he can barely move due to weakness and achiness. Was seen here two days ago for similar symptoms and discharged. Patient does note dark brown urine over the past several days. Has upcoming appointment with rheumatology on Sunday. Onset (ago): day(s) Location: mouth (sore throat), chest, abdomen and upper extremity Severity: moderate Quality: aching and constant Pain Consistency: constant Relieving factors: none and medication Exacerbating factors: movement Associated symptoms: Reports decreased appetite, fevers/chills, rash (chronic) and weakness; Deny confusion, diaphoresis, dyspnea, headache(s), nausea, palpitations, short of breath, syncope or vomiting Treatments prior to arrival: none Related Data Home Medications ?Medication ?Instructions ?Recorded ?Confirmed acetaminophen 500 mg tablet 500 - 1,000 mg PO Q4H PRN Pain 06/10/19 08/29/24 (Tylenol Extra Strength) cetirizine 10 mg tablet 10 mg PO DAILY PRN ALLERGIES 07/03/23 08/29/24 cholecalciferol (vitamin D3) 25 25 mcg PO DAILY 07/03/23 08/29/24 mcg (1,000 unit) capsule montelukast 10 mg tablet 10 mg PO DAILY 07/03/23 08/29/24 (Singulair) mupirocin 2 % topical ointment 1 applic topical BID PRN Skin 12/27/23 08/29/24 Irritation tacrolimus 0.1 % topical ointment 1 applic topical BID PRN Skin 12/27/23 08/29/24 Irritation triamcinolone acetonide 0.1 % 1 applic topical BID PRN red itchy 12/27/23 08/29/24 topical ointment rash on body clobetasol 0.05 % topical ointment See Rx Instructions .Route .COMPLEX 08/27/24 08/29/24 diphenhydramine HCl 25 mg capsule 25 mg PO TID PRN Itching 08/27/24 08/29/24 (Benadryl) pantoprazole 40 mg tablet,delayed 40 mg PO QAM 08/27/24 08/29/24 release gabapentin 300 mg capsule 300 mg PO TID 08/29/24 08/29/24 Previous Rx's ?Medication ?Instructions ?Recorded prednisone 10 mg tablet See Rx Instructions .Route 06/17/24 .COMPLEX joint pain #90 tabs apremilast 30 mg tablet (Otezla) 30 mg PO BID #60 tabs 08/04/24 colchicine 0.6 mg tablet 0.6 mg PO BID #60 tabs 08/11/24 Allergies Allergy/AdvReac Type Severity Reaction Status Date / Time Sulfa (Sulfonamide Allergy Unknown Unknown Verified 07/15/24 09:32 Antibiotics) Penicillins Allergy ALGY-Hives Verified 07/15/24 09:32 methotrexate AdvReac Severe severe Verified 07/15/24 09:32 decrease WBC's levofloxacin AdvReac Intermediate rash Verified 07/15/24 09:32 Review of Systems Const: Reports: body aches (describes as muscle aches) and change in appetite (decreased); Denies: fever(s), chills or diaphoresis Eyes: Denies: change in vision, blurry vision, photophobia, floaters or seeing flashes ENMT: Reports: throat pain and odynophagia; Denies: nasal discharge, nasal congestion or sinus pain Card: Reports: edema; Denies: palpitations, irregular heart rhythm, lightheadedness, syncope, pre-syncope, dyspnea on exertion, orthopnea, leg pain with exertion or acrocyanosis Resp: Denies: dyspnea, non-productive cough or pain on inspiration GI: Reports: abdominal pain (states he feels like this is more his abdominal wall muscles); Denies: nausea, vomiting or hematemesis : Reports: other (hx of genital ulcers consistent with known Behcet's); Denies: flank pain or dysuria Musc: Reports: back pain, extremity pain, extremity swelling, joint pain, joint swelling and muscle weakness; Denies: joint redness, joint warmth or muscle cramps Skin/Breast: Reports: rash (chronic) Neuro: Reports: weakness in extremities; Denies: headache(s), numbness in extremities, sensory changes, lack of coordination, dizziness, vertigo, confusion, behavioral changes or seizure-like activity PFS ED PFSH: Medical History Allergies Rash Immunization counseling High risk medication use Oral ulceration Male genital ulcer Behcet's disease Inflammatory arthritis History of chronic hypertension Surgical History History of appendectomy History of tonsillectomy Family History Other Diabetes Hypertension Stroke Denies family history of Lupus (systemic lupus erythematosus) Rheumatoid arthritis Liver disease Polycystic kidney disease Heart disease Hyperlipidemia Kidney stones Family history of premature coronary artery disease Lung disease Cancer Social History Smoking and tobacco/nicotine status: never used tobacco/nicotine Alcohol intake: never Physical Exam Const: COMMON NORMALS: no acute distress (patient appears generally unwell with diffuse myalgias), average body habitus, patient oriented x3, no limitations, healthy appearing, alert and well nourished GENERAL APPEARANCE: cooperative; not diaphoretic ORIENTATION/CONSCIOUSNESS: Yes awake, Yes oriented to person, Yes oriented to place and Yes oriented to time HENMT: COMMON NORMALS: normocephalic, atraumatic and Normal external nose present HEAD & SCALP: normal to inspection, normocephalic and atraumatic FACE & SINUS: edema NOSE: Normal external nose present MOUTH: Abnormal oral and palatal mucosa present petechiae (Posterior palatal petechiae) Eye: GENERAL EYE: appearance normal, both eyes and all related structures and normal light reflex DIRECT OPHTHALMOSCOPY: Yes normal light reflex Neck/C-Spine: COMMON NORMALS: full ROM GENERAL: Yes normal visual inspection, No anterior neck swelling and No submandibular swelling Chest: COMMONS NORMALS: normal inspection of the chest and normal palpation of entire chest wall CHEST: Yes Symmetrical chest wall rise OTHER: tender throughout chest wall Resp: COMMON NORMALS: normal respiratory effort, No retractions, No use of accessory muscles and clear to auscultation bilaterally EFFORT & INSPECTION: Yes able to speak in complete sentences and Yes symmetric chest movement AUSCULTATION: clear to auscultation bilaterally Cardio: COMMON NORMALS: regular rate and regular rhythm RATE: regular rate RHYTHM: regular rhythm GI: COMMON NORMALS: Soft to palpation, No hepatosplenomegaly present and no masses INSPECTION: Yes normal to inspection PALPATION: Yes Soft to palpation, Yes Tenderness to palpation present (GI) (diffusely-states this feels more like abdominal wall tenderness), No Guarding due to palpation present (GI), No Rigid due to palpation and Yes No hepatosplenomegaly present : COMMON NORMALS: Yes no CVA tenderness BLADDER/KIDNEY EXAM: Yes no CVA tenderness Back/Pelvis: COMMON NORMALS: no CVA tenderness and thoracic and lumbar spine normal to inspection THORACIC SPINE/UPPER BACK: Yes paraspinal muscle tenderness LUMBAR SPINE/LOWER BACK: Yes paraspinal muscle tenderness PELVIS: Yes buttocks normal SACRUM: no tenderness COCCYX: no tenderness Extremity: COMMON NORMALS: capillary refill normal, no calf tenderness and no pedal edema NARRATIVE EXTREMITY EXAM: mild edema to bilateral UEs GENERAL: Yes normal exam except as noted Neuro: COMMON NORMALS: patient oriented x3, moves all extremities and no sensory deficits noted SENSORIUM/ORIENTATION: Yes alert, Yes oriented to person, Yes oriented to place and Yes oriented to time OTHER: diffuse muscle weakness Skin: NARRATIVE SKIN EXAM: chronic skin rash/ulcers Course Consultations: Consultation #1: Dr. Rene Levi-rheumatology [place]-recommended admission and work up for vasculitis/glomerulonephritis/nephrotic syndrome, consulting nephrology and possible kidney biopsy Consultation #2: RANDI Boyer nephrology ammonium sulfate operator-recommends transfer as patient may need kidney biopsy Consultation #3: YUNI Vizcarra/Dr. 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 Zuniga-[place] [facility]-accepts patient [facility] transfer line stating we do not need to speak to hospitalist and giving us bed number Vital Signs: Vital signs: Vital Signs Temperature 97.7 F 08/29/24 09:14 Pulse Rate 60 08/30/24 02:06 Respiratory Rate 15 08/30/24 01:00 Blood Pressure 112/67 08/30/24 02:06 Pulse Oximetry 96 08/30/24 02:06 Oxygen Delivery Me thod Room Air 08/30/24 01:00 MDM - General Adult Medical Decision Making Chart reviewed and patient discussed with midlevel. Agree with assessment and plan. Patient is a very nice 64-year-old male with a history of Behcet's disease following with rheumatology here for complaints of muscle achiness and weakness as well as swelling to his face and arms. He has also noticed very dark urine over the past several days. Upon arrival patient is mildly ill/uncomfortable appearing. Vital signs are stable. Patient's blood work with a fairly normal CBC. Chemistry showing mild hyponatremia and mild hypocalcemia. CRP is elevated at 76 today compared to 31 2 days ago. Mildly elevated BNP. Mild hypoalbuminemia at 3.3. Urine is dark yellow with proteinuria and hematuria. I have spoken to multiple special tests on patient. Given his history of Behcet's there is some concern for vasculitis, nephrotic syndrome, glomerulonephritis. Concern he may require kidney biopsy. We are transferring patient to [place] as they have inpatient nephrology to consult on him. Dr. Shaw aware of patient and agrees with plan for transfer. Medical Records I reviewed the patient's medical records. Lab Data I reviewed the patient's lab results. 08/29/24 09:36 08/29/24 09:36 Radiology Impressions Chest X-Ray 08/29/24 10:19 IMPRESSION: Stable chest without acute abnormality. Laboratory Results WBC 10.17 10^3/uL (3.29-11.43) 08/29/24 09:36 RBC 3.93 10^6/uL (3.85-5.65) 08/29/24 09:36 Hgb 13.20 g/dL (11.27-16.99) 08/29/24 09:36 Hct 39.0 % (37-53) 08/29/24 09:36 MCV 99.2 fl (82-101) 08/29/24 09:36 MCH 33.6 pg (27-33) H 08/29/24 09:36 MCHC 33.8 g/dL (30-55) 08/29/24 09:36 RDW 17.1 % (12.1-15.1) H 08/29/24 09:36 Plt Count 237 10^3/cmm (157-399) 08/29/24 09:36 MPV 8.7 fL (7.4-10.4) 08/29/24 09:36 Neut % (Auto) 73.8 % 08/29/24 09:36 Lymph % (Auto) 11.4 % 08/29/24 09:36 [place] % (Auto) 4.7 % 08/29/24 09:36 Eos % (Auto) 0.7 % 08/29/24 09:36 Baso % (Auto) 0.6 % 08/29/24 09:36 Neut # (Auto) 7.50 10^3/uL (1.8-7.7) 08/29/24 09:36 Lymph # (Auto) 1.2 10^3/uL (0.8-4.8) 08/29/24 09:36 [place] # (Auto) 0.5 10^3/uL (0.2-0.9) 08/29/24 09:36 Eos # (Auto) 0.1 10^3/uL (0.0-0.8) 08/29/24 09:36 Baso # (Auto) 0.1 10^3/uL (0.0-0.1) 08/29/24 09:36 Nucleated RBC % (auto) 0 % 08/29/24 09:36 Nucleated RBCs # 0.0 /100WBC 08/29/24 09:36 Sodium 130 mmol/L (136-145) L 08/29/24 09:36 Potassium 4.5 mmol/L (3.5-5.1) 08/29/24 09:36 Chloride 96 mmol/L (98-107) L 08/29/24 09:36 Carbon Dioxide 22 mmol/L (22-29) 08/29/24 09:36 Anion Gap 16.5 (5-19) 08/29/24 09:36 BUN 23 mg/dL (8-23) 08/29/24 09:36 Creatinine 1.0 mg/dL (0.7-1.2) 08/29/24 09:36 GFR Calculation 75.5 mL/min (90-130) L 08/29/24 09:36 Glucose 110 mg/dL (65-115) 08/29/24 09:36 Calculated Osmolality 274 mOsm/kg (285-295) L 08/29/24 09:36 Calcium 8.1 mg/dL (8.5-10.5) L 08/29/24 09:36 Total Bilirubin 1.0 mg/dL (0.15-1.2) 08/29/24 09:36 AST 9 U/L (0-40) 08/29/24 09:36 ALT 8 U/L (0-41) 08/29/24 09:36 Alkaline Phosphatase 64 U/L (40-130) 08/29/24 09:36 Creatine Kinase 45 U/L (39-308) 08/29/24 09:36 C-Reactive Protein 76.6 mg/L (0.0-4.9) H 08/29/24 09:36 NT-Pro-B Natriuret Pep 177 pg/mL (0-125) H 08/29/24 09:36 Total Protein 6.7 g/dL (6.6-8.7) 08/29/24 09:36 Albumin 3.3 g/dL (3.5-5.2) L 08/29/24 09:36 Globulin 3.4 g/dL (1.3-4.6) 08/29/24 09:36 Urine Color Dark yellow (Yellow) A 08/29/24 10:30 Urine Appearance Clear (CLEAR) 08/29/24 10:30 Urine pH 5 (5-7) 08/29/24 10:30 Ur Specific [place] 1.020 (1.005-1.030) 08/29/24 10:30 Urine Protein 1+ (Negative) A 08/29/24 10:30 Urine Glucose (UA) Norm (Normal) 08/29/24 10:30 Urine Ketones 1+ (Negative) H 08/29/24 10:30 Urine Blood 2+ (Negative) A 08/29/24 10:30 Urine Nitrate Negative (Negative) 08/29/24 10:30 Urine Bilirubin Neg (Negative) 08/29/24 10:30 Urine Urobilinogen 1 mg/dL (Negative) H 08/29/24 10:30 Ur Leukocyte Esterase Trace (Negative) A 08/29/24 10:30 Urine RBC 11-20 /hpf (0-2) H 08/29/24 10:30 Urine WBC 0-5 /hpf (0-5) 08/29/24 10:30 Ur Squamous Epith Cells 0-5 /hpf (0-5) 08/29/24 10:30 Amorphous Sediment Not Reportable 08/29/24 10:30 Urine Bacteria None seen /hpf (NONE) 08/29/24 10:30 Hyaline Casts 8.26 /lpf 08/29/24 10:30 U Random Total Protein 61 mg/dL 08/29/24 10:30 Urine Creatinine 161 mg/dL (39-259) 08/29/24 10:30 Protein/Creatinin Ratio 0.38 mg/mg CR 08/29/24 10:30 All radiology interpretation(s) finalized by discharge Discharge Plan Discharge Patient Disposition: Xfer Short-Term Hosp Clinical Impression: Behcet's disease, High risk medication use, Inflammatory arthritis Proteinuria Qualifiers: Proteinuria type: other Qualified Code(s): R80.8 - Other proteinuria Condition: Stable Referrals: Marisela Blackmon FNP [Primary Care Provider] - Print Language: Belgian Coding Level of Care Code ED Schedule Checker for Chg Fwd Documented by User: Martin Shaw DO 09/01/24 08:42 HPI - General Adult General: Chief complaint: General Medical Stated complaint: muscle aches/swelling Time Seen by Provider: 08/29/24 09:22 Related Data Home Medications ?Medication ?Instructions ?Recorded ?Confirmed acetaminophen 500 mg tablet 500 - 1,000 mg PO Q4H PRN Pain 06/10/19 08/29/24 (Tylenol Extra Strength) cetirizine 10 mg tablet 10 mg PO DAILY PRN ALLERGIES 07/03/23 08/29/24 cholecalciferol (vitamin D3) 25 25 mcg PO DAILY 07/03/23 08/29/24 mcg (1,000 unit) capsule montelukast 10 mg tablet 10 mg PO DAILY 07/03/23 08/29/24 (Singulair) mupirocin 2 % topical ointment 1 applic topical BID PRN Skin 12/27/23 08/29/24 Irritation tacrolimus 0.1 % topical ointment 1 applic topical BID PRN Skin 12/27/23 08/29/24 Irritation triamcinolone acetonide 0.1 % 1 applic topical BID PRN red itchy 12/27/23 08/29/24 topical ointment rash on body clobetasol 0.05 % topical ointment See Rx Instructions .Route .COMPLEX 08/27/24 08/29/24 diphenhydramine HCl 25 mg capsule 25 mg PO TID PRN Itching 08/27/24 08/29/24 (Benadryl) pantoprazole 40 mg tablet,delayed 40 mg PO QAM 08/27/24 08/29/24 release gabapentin 300 mg capsule 300 mg PO TID 08/29/24 08/29/24 Previous Rx's ?Medication ?Instructions ?Recorded prednisone 10 mg tablet See Rx Instructions .Route 06/17/24 .COMPLEX joint pain #90 tabs apremilast 30 mg tablet (Otezla) 30 mg PO BID #60 tabs 08/04/24 colchicine 0.6 mg tablet 0.6 mg PO BID #60 tabs 08/11/24 Allergies Allergy/AdvReac Type Severity Reaction Status Date / Time Sulfa (Sulfonamide Allergy Unknown Unknown Verified 07/15/24 09:32 Antibiotics) Penicillins Allergy ALGY-Hives Verified 07/15/24 09:32 methotrexate AdvReac Severe severe Verified 07/15/24 09:32 decrease WBC's levofloxacin AdvReac Intermediate rash Verified 07/15/24 09:32 PFSH ED PFSH: Medical History Allergies Rash Immunization counseling High risk medication use Oral ulceration Male genital ulcer Behcet's disease Inflammatory arthritis History of chronic hypertension Surgical History History of appendectomy History of tonsillectomy Family History Other Diabetes Hypertension Stroke Denies family history of Lupus (systemic lupus erythematosus) Rheumatoid arthritis Liver disease Polycystic kidney disease Heart disease Hyperlipidemia Kidney stones Family history of premature coronary artery disease Lung disease Cancer Social History Smoking and tobacco/nicotine status: never used tobacco/nicotine Alcohol intake: never Course Vital Signs: Vital signs: Vital Signs Temperature 97.7 F 08/29/24 09:14 Pulse Rate 60 08/30/24 02:06 Respiratory Rate 15 08/30/24 01:00 Blood Pressure 112/67 08/30/24 02:06 Pulse Oximetry 96 08/30/24 02:06 Oxygen Delivery Me thod Room Air 08/30/24 01:00 MDM - General Adult Medical Decision Making Patient is a very nice 64-year-old male with a history of Behcet's disease following with rheumatology here for complaints of muscle achiness and weakness as well as swelling to his face and arms. He has also noticed very dark urine over the past several days. Upon arrival patient is mildly ill/uncomfortable appearing. Vital signs are stable. Patient's blood work with a fairly normal CBC. Chemistry showing mild hyponatremia and mild hypocalcemia. CRP is elevated at 76 today compared to 31 2 days ago. Mildly elevated BNP. Mild hypoalbuminemia at 3.3. Urine is dark yellow with proteinuria and hematuria. I have spoken to multiple special tests on patient. Given his history of Behcet's there is some concern for vasculitis, nephrotic syndrome, glomerulonephritis. Concern he may require kidney biopsy. We are transferring patient to [place] as they have inpatient nephrology to consult on him. Dr. Shaw aware of patient and agrees with plan for transfer. Chart reviewed and patient discussed with midlevel. Agree with assessment and plan. Lab Data 08/29/24 09:36 08/29/24 09:36 Radiology Impressions Chest X-Ray 08/29/24 10:19 IMPRESSION: Stable chest without acute abnormality. Laboratory Results WBC 10.17 10^3/uL (3.29-11.43) 08/29/24 09:36 RBC 3.93 10^6/uL (3.85-5.65) 08/29/24 09:36 Hgb 13.20 g/dL (11.27-16.99) 08/29/24 09:36 Hct 39.0 % (37-53) 08/29/24 09:36 MCV 99.2 fl (82-101) 08/29/24 09:36 MCH 33.6 pg (27-33) H 08/29/24 09:36 MCHC 33.8 g/dL (30-55) 08/29/24 09:36 RDW 17.1 % (12.1-15.1) H 08/29/24 09:36 Plt Count 237 10^3/cmm (157-399) 08/29/24 09:36 MPV 8.7 fL (7.4-10.4) 08/29/24 09:36 Neut % (Auto) 73.8 % 08/29/24 09:36 Lymph % (Auto) 11.4 % 08/29/24 09:36 [place] % (Auto) 4.7 % 08/29/24 09:36 Eos % (Auto) 0.7 % 08/29/24 09:36 Baso % (Auto) 0.6 % 08/29/24 09:36 Neut # (Auto) 7.50 10^3/uL (1.8-7.7) 08/29/24 09:36 Lymph # (Auto) 1.2 10^3/uL (0.8-4.8) 08/29/24 09:36 [place] # (Auto) 0.5 10^3/uL (0.2-0.9) 08/29/24 09:36 Eos # (Auto) 0.1 10^3/uL (0.0-0.8) 08/29/24 09:36 Baso # (Auto) 0.1 10^3/uL (0.0-0.1) 08/29/24 09:36 Nucleated RBC % (auto) 0 % 08/29/24 09:36 Nucleated RBCs # 0.0 /100WBC 08/29/24 09:36 Sodium 130 mmol/L (136-145) L 08/29/24 09:36 Potassium 4.5 mmol/L (3.5-5.1) 08/29/24 09:36 Chloride 96 mmol/L (98-107) L 08/29/24 09:36 Carbon Dioxide 22 mmol/L (22-29) 08/29/24 09:36 Anion Gap 16.5 (5-19) 08/29/24 09:36 BUN 23 mg/dL (8-23) 08/29/24 09:36 Creatinine 1.0 mg/dL (0.7-1.2) 08/29/24 09:36 GFR Calculation 75.5 mL/min (90-130) L 08/29/24 09:36 Glucose 110 mg/dL (65-115) 08/29/24 09:36 Calculated Osmolality 274 mOsm/kg (285-295) L 08/29/24 09:36 Calcium 8.1 mg/dL (8.5-10.5) L 08/29/24 09:36 Total Bilirubin 1.0 mg/dL (0.15-1.2) 08/29/24 09:36 AST 9 U/L (0-40) 08/29/24 09:36 ALT 8 U/L (0-41) 08/29/24 09:36 Alkaline Phosphatase 64 U/L (40-130) 08/29/24 09:36 Creatine Kinase 45 U/L (39-308) 08/29/24 09:36 C-Reactive Protein 76.6 mg/L (0.0-4.9) H 08/29/24 09:36 NT-Pro-B Natriuret Pep 177 pg/mL (0-125) H 08/29/24 09:36 Total Protein 6.7 g/dL (6.6-8.7) 08/29/24 09:36 Albumin 3.3 g/dL (3.5-5.2) L 08/29/24 09:36 Globulin 3.4 g/dL (1.3-4.6) 08/29/24 09:36 Urine Color Dark yellow (Yellow) A 08/29/24 10:30 Urine Appearance Clear (CLEAR) 08/29/24 10:30 Urine pH 5 (5-7) 08/29/24 10:30 Ur Specific [place] 1.020 (1.005-1.030) 08/29/24 10:30 Urine Protein 1+ (Negative) A 08/29/24 10:30 Urine Glucose (UA) Norm (Normal) 08/29/24 10:30 Urine Ketones 1+ (Negative) H 08/29/24 10:30 Urine Blood 2+ (Negative) A 08/29/24 10:30 Urine Nitrate Negative (Negative) 08/29/24 10:30 Urine Bilirubin Neg (Negative) 08/29/24 10:30 Urine Urobilinogen 1 mg/dL (Negative) H 08/29/24 10:30 Ur Leukocyte Esterase Trace (Negative) A 08/29/24 10:30 Urine RBC 11-20 /hpf (0-2) H 08/29/24 10:30 Urine WBC 0-5 /hpf (0-5) 08/29/24 10:30 Ur Squamous Epith Cells 0-5 /hpf (0-5) 08/29/24 10:30 Amorphous Sediment Not Reportable 08/29/24 10:30 Urine Bacteria None seen /hpf (NONE) 08/29/24 10:30 Hyaline Casts 8.26 /lpf 08/29/24 10:30 U Random Total Protein 61 mg/dL 08/29/24 10:30 Urine Creatinine 161 mg/dL (39-259) 08/29/24 10:30 Protein/Creatinin Ratio 0.38 mg/mg CR 08/29/24 10:30 Discharge Plan Discharge Patient Disposition: Xfer Short-Term Hosp Clinical Impression: Behcet's disease, High risk medication use, Inflammatory arthritis Proteinuria Qualifiers: Proteinuria type: other Qualified Code(s): R80.8 - Other proteinuria Condition: Stable Referrals: Marisela Blackmon FNP [Primary Care Provider] - Print Language: Belgian Coding Level of Care Code ED Schedule Checker for Masong Daniel
--- NOTE | 2024-08-29 10:10 | PC.PHAR ---
patient is [facility], sent fax at [phone]
[2024-08-29 10:15] LABS: Alanine Aminotransferase 8 U/L (0-41); Albumin Level 3.3 g/dL (3.5-5.2); Alkaline Phosphatase 64 U/L (40-130); Anion Gap 16.5 (5-19); Aspartate Amino Transferase 9 U/L (0-40); Blood Urea Nitrogen 23 mg/dL (8-23); Calcium 8.1 mg/dL (8.5-10.5); Carbon Dioxide 22 mmol/L (22-29); Chloride 96 mmol/L (98-107); Creatine Phosphokinase 45 U/L (39-308); Creatinine Clr Calc Pharmacy 67.5568; Globulin 3.4 g/dL (1.3-4.6); Glomerular Filtration Rate 75.5 mL/min (90-130); Glucose 110 mg/dL (65-115); Osmolality Calculated 274 mOsm/kg (285-295); Potassium 4.5 mmol/L (3.5-5.1); Sodium 130 mmol/L (136-145); Total Protein 6.7 g/dL (6.6-8.7)
[2024-08-29 10:18] LABS: C Reactive Protein 76.6 mg/L (0.0-4.9)
--- NOTE | 2024-08-29 10:19 | XR_ITS ---
WS: [id number] XR chest 1V portable [id number] REASON FOR EXAM: chest pain FINDINGS: The chest is unchanged compared to the examination of 02/21/2024. There is mild to moderate tortuosity and ectasia of the thoracic aorta. The heart is at the upper limits of normal in size. Calcified granulomatous disease bilaterally. No acute pulmonary parenchymal or pleural abnormality. Mild degenerative spondylosis of the thoracic spine. XR/XR chest 1V portable [id number] IMPRESSION: Stable chest without acute abnormality.
[2024-08-29 10:42] LABS: Bacteria Urine None Seen /hpf; Hyaline Casts Urine 8.26 /lpf; Squamous Epithelial Cell Urine 0-5 /hpf (0-5); WBC Urine 0-5 /hpf (0-5)
[2024-08-29 10:46] LABS: NT Pro B Type Natriuretic Pept 177 pg/mL (0-125)
[2024-08-29 10:51] LABS: Add Urine Microscopic? YES; Bilirubin Urine Neg (Negative); Blood Urine 2+ (Negative); Glucose Urine UA Norm (Normal); Ketones Urine 1+ (Negative); Leukocyte Esterase Urine Trace (Negative); Nitrate Urine Negative (Negative); Protein Urine 1+ (Negative); UA Slide Review UA Slide Review Perf; Urine Appearance Clear (CLEAR); Urine Color Dark Yellow (Yellow); Urobilinogen Urine 1 mg/dL (Negative); pH Urine 5 (5-7)
[2024-08-29 10:52] LABS: Add Urine Culture? Yes
[2024-08-29 12:49] LABS: Urine Creatinine 161 mg/dL (39-259)
[2024-08-29 12:50] LABS: UPRO/UCREAT Ratio 0.38 mg/mg CR; Urine Protein Random 61 mg/dL
[2024-08-29] MEDS: ondansetron 2 mg/ML SDV 2 mL 4 MG IVP (13:04)
[2024-08-29] MEDS: morphine 4 mg/mL SDV 1 mL IVP (13:05)
[2024-08-29] MEDS: methylPREDNISolone sod succ 125 mg/2 mL INJ 80 MG IVP (16:16)
--- NOTE | 2024-08-29 17:41 | PC.NURSE ---
report called to APOLINAR Arzola at [place]. informed her we may not have transport tonight due to the weather. pt is allowed clear liquids per APOLINAR at [place].
[2024-08-30 01:00] VITALS: BP 114/64; PULSE 63; RESP 15; O2SAT 97
[2024-08-30 02:06] VITALS: BP 112/67; PULSE 60; O2SAT 96
== END 2024-08-30 02:00 | disposition short-term general hospital (02) ==
PROVIDERS: Emergency Provider Physician Assistant; PCP Nurse Practitioner
DX: M35.2 Behcet's disease (principal); M19.91 Primary osteoarthritis, unspecified site; R80.8 Other proteinuria; I10 Essential (primary) hypertension
CPT/HCPCS: 36415; 71045; 80053; 81001; 82550; 82570; 83880; 84156; 85025; 86140; 87086; 96374; 96375; 99284; J2270; J2405; J2919

== ENCOUNTER → 2024-09-03 13:42 | Outpatient (BNVA) | payer OTHER, SELFPAY | PROVIDERS: PCP Nurse Practitioner; Visit Provider Internal Medicine Rheumatology | DX: M35.2 Behcet's disease (principal); Z79.899 Other long term (current) drug therapy; K12.1 Other forms of stomatitis; Z71.85 Encounter for immunization safety counseling; M19.90 Unspecified osteoarthritis, unspecified site; R21 Rash and other nonspecific skin eruption | CPT/HCPCS: 36415; 81001; 82085; 82550; 82565; 82570; 84156; 85025; 87086; 99214 ==

== ENCOUNTER 2024-09-04 20:58 | Emergency (ER) | payer OTHER, SELFPAY ==
[2024-09-04 21:01] VITALS: BP 179/113; PULSE 76; RESP 24; TEMP 37.4; O2SAT 100; BMI 28.3
--- NOTE | 2024-09-04 21:30 | ED_ITS ---
HPI - General Adult 2 General: Chief complaint: General Medical Stated complaint: Provider Service Representative Muscle and joint Pain Time Seen by Provider: 09/04/24 21:11 History of Present Illness: Patient presents to the ER with complaints of Behcet's flareup, he says he has joint and muscle pain all over. He was seen last week by myself by the nurse practitioner, and referred to [place] where he saw nephrology had a kidney biopsy, he was seen by Dr. Mcleod rheumatology. Says does not know what caused all this flareup but while he was down there in the hospital he is receiving steroids and hydromorphone and it helped a lot. He said Dr. Mcleod did some labs on him yesterday but he does not know what the results are. Related Data Home Medications ?Medication ?Instructions ?Recorded ?Confirmed acetaminophen 500 mg tablet 500 - 1,000 mg PO Q4H PRN Pain 06/10/19 09/03/24 (Tylenol Extra Strength) cetirizine 10 mg tablet 10 mg PO DAILY PRN ALLERGIES 07/03/23 09/03/24 cholecalciferol (vitamin D3) 25 25 mcg PO DAILY 09/03/24 mcg (1,000 unit) capsule montelukast 10 mg tablet 10 mg PO DAILY 07/03/2302/19 (Singulair) mupirocin 2 % topical ointment 1 applic topical BID LA N Skin 12/27/23 09/03/24 Irritation tacrolimus 0.1 % topical ointment 1 applic topical BID PRN Skin 12/27/23 09/03/24 Irritation triamcinolone acetonide 0.1 % 1 applic topical BID PRN red itchy 12/27/23 09/03/24 topical ointment rash on body clobetasol 0.05 % topical ointment See Rx Instructions .Route .COMPLEX 08/27/24 09/03/24 diphenhydramine HCl 25 mg capsule 25 mg PO TID PRN Itc ollie 08/27/24 09/03/24 (Benadryl) pantoprazole 40 mg tablet,delayed 40 mg PO QAM 5 09/03/24 release gabapentin 300 mg capsule 300 mg PO TID 08/29/2409/03 Previous Rx's ?Medication ?Instructions ?Recorded prednisone 10 mg tablet See Rx Instructions .Route 0 06/17/24 .COMPLEX joint pain #90 tabs apremilast 30 mg tablet (Otezla) 30 mg PO BID #60 tabs 08/04/24 colchicine 0.6 mg tablet 0.6 mg PO BID #60 tabs 08/11 Held on 09/03/24. Instructions: Doctor's Order ketorolac 10 mg tablet 10 mg PO Q6H PRN Kidney ston e pain 09/04/24 #14 tabs Allergies Allergy/AdvReac Type Severity Reaction Status Date / Time Sulfa (Sulfonamide Allergy Unknown Unknown Verified 09/04/24 21:07 Antibiotics) hydrocodone Allergy ALGY-Rash Verified 09/04/24 21:07 Penicillins Allergy ALGY-Hives Verified 09/04/24 21:07 methotrexate AdvReac Severe severe Verified 09/04/24 21:07 decrease WBC's levofloxacin AdvReac Intermediate rash Verified 09/04/24 21:07 Review of Systems 2 General: Reports: 10 or more systems reviewed and unremarkable except in HPI and below PFSH ED 2 PFSH: Medical History Allergies Rash Immunization counseling High risk medication use Oral ulceration Male genital ulcer Behcet's disease Inflammatory arthritis History of chronic hypertension Surgical History History of appendectomy History of tonsillectomy Family History Other Diabetes Hypertension Stroke Denies family history of Lupus (systemic lupus erythematosus) Rheumatoid arthritis Liver disease Polycystic kidney disease Heart disease Hyperlipidemia Kidney stones Family history of premature coronary artery disease Lung disease Cancer Social History Smoking and tobacco/nicotine status: never used tobacco/nicotine Alcohol intake: never Physical Exam 2 Const: COMMON NORMALS: average body habitus, patient oriented x3, no limitations, healthy appearing, alert and well nourished HENMT: COMMON NORMALS: normocephalic, atraumatic, hearing grossly normal bilaterally, external ears normal, Normal external nose present, moist oral mucous membranes and oropharynx normal HEAD & SCALP: normocephalic and atraumatic NOSE: Normal external nose present EXTERNAL EAR: Yes external ears normal Neck/C-Spine: COMMON NORMALS: no JVD Chest: COMMONS NORMALS: normal inspection of the chest and normal palpation of entire chest wall Resp: COMMON NORMALS: normal respiratory effort, No retractions, No use of accessory muscles and clear to auscultation bilaterally AUSCULTATION: clear to auscultation bilaterally Cardio: COMMON NORMALS: no JVD, regular rate, regular rhythm, S1 normal heart sound present, S2 normal heart sound present, No gallops present (Cardio), No clicks present (Cardio), No murmurs present (Cardio) and No rub (Cardio) R ATE: regular rate RHYTHM: regular rhythm HEART SOUNDS: S1 normal heart sound present and S2 normal heart sound present GI: COMMON NORMALS: Normal to inspection, nondistended, normoactive bowel sounds present, Soft to palpation, non-tender, No hepatosplenomegaly present and no masses PALPATION: Yes Soft to palpation and Yes No hepatosplenomegaly present Neuro: COMMON NORMALS: patient oriented x3 SENSORIUM/ORIENTATION: Yes alert Course 2 Vital Signs: Vital signs: Vital Signs Temperature 99.3 F 09/04/24 21:01 Pulse Rate 76 09/04/24 21:01 Respiratory Rate 24 H 09/04/24 21:01 Blood Pressure 179/113 09/04/24 21:01 Pulse Oximetry 100 09/04/24 21:01 Oxygen Delivery Me thod Room Air 09/04/24 21:01 MDM - General Adult Medical Decision Making I reviewed the records from 2 visits last week in the ER Dr. Redmond's visit and we did receive the records from [facility] stay. Patient has been totally worked up for his Behcet's, we discussed his lower dose of prednisone and how he may need to go back up from the 15 to the 40 for the next week. Patient seem to get the best result from the Toradol we gave him here. We will prescribe him Toradol. Will have him call Dr. Redmond's office tomorrow Medical Records I reviewed the patient's medical records. Lab Data I reviewed the patient's lab results. 09/04/24 21:42 09/04/24 21:42 Laboratory Results WBC 7.44 10^3/uL (3.29-11.43) 09/04/24 21:42 RBC 3.95 10^6/uL (3.85-5.65) 09/04/24 21:42 Hgb 13.00 g/dL (11.27-16.99) 09/04/24 21:42 Hct 39.4 % (37-53) 09/04/24 21:42 MCV 99.7 fl (82-101) 09/04/24 21:42 MCH 32.9 pg (27-33) 09/04/24 21:42 MCHC 33.0 g/dL (30-55) 09/04/24 21:42 RDW 15.5 % (12.1-15.1) H 09/04/24 21:42 Plt Count 249 10^3/cmm (157-399) 09/04/24 21:42 MPV 8.6 fL (7.4-10.4) 09/04/24 21:42 Lymph % (Auto) Not Reportable 09/04/24 21:42 [place] % (Auto) Not Reportable 09/04/24 21:42 Lymph # (Auto) Not Reportable 09/04/24 21:42 [place] # (Auto) Not Reportable 09/04/24 21:42 Total Counted 100 (0-100) 09/04/24 21:42 Atypical Lymphs % 0.0 % (0-5) 09/04/24 21: Absolute Neutrophils 4.9 10^3/cmm (1.4-6.5) 09/04/24 21:42 Segmented Neutrophils 62 % 09/04/24 21:42 Band Neutrophils 4.0 % 09/04/24 21:42 Absolute Lymphocytes 1.4 10^3/cmm (1.2-3.4) 09/04/24 21:42 Lymphocytes (Manual) 19 % 09/04/24 21:42 Monocytes (Manual) 9.0 % 09/04/24 21: Absolute Monocytes 0.7 10^3/cmm (0.1-0.6) H 09/04/24 21:42 Eosinophils (Manual) 3 % 09/04/24 21: Absolute Eosinophils 0.2 10^3/cmm (0.0-0.7) 09/04/24 21: Basophils (Manual) 0.0 % 09/04/24 21: Absolute Basophils 0.0 10^3/cmm (0.0-0.2) 09/04/24 21:42 Metamyelocytes 2.0 % 09/04/24 21:42 Myelocytes 1.0 % 09/04/24 21:42 Platelet Estimate Normal (Normal) 09/04/24 21:42 [place] Cells 1+ H 09/04/24 21:42 Sodium 136 mmol/L (136-145) 09/04/24 21:42 Potassium 3.4 mmol/L (3.5-5.1) L 09/04/24 21:42 Chloride 105 mmol/L (98-107) 09/04/24 21:42 Carbon Dioxide 18 mmol/L (22-29) L 09/04/24 21:42 Anion Gap 16.4 (5-19) 09/04/24 21:42 BUN 32 mg/dL (8-23) H 09/04/24 21:42 Creatinine 0.8 mg/dL (0.7-1.2) 09/04/24 21:42 GFR Calculation 97.6 mL/min (90-130) 09/04/24 21:42 Glucose 111 mg/dL (65-115) 09/04/24 21:42 Calculated Osmolality 290 mOsm/kg (285-295) 09/04/24 21:42 Calcium 8.1 mg/dL (8.5-10.5) L 09/04/24 21:42 Total Bilirubin 0.5 mg/dL (0.15-1.2) 09/04/24 21:42 AST 14 U/L (0-40) 09/04/24 21:42 ALT 15 U/L (0-41) 09/04/24 21:42 Alkaline Phosphatase 58 U/L (40-130) 09/04/24 21:42 Creatine Kinase 25 U/L (39-308) L 09/04/24 21:42 Total Protein 6.5 g/dL (6.6-8.7) L 09/04/24 21:42 Albumin 3.0 g/dL (3.5-5.2) L 09/04/24 21:42 Globulin 3.5 g/dL (1.3-4.6) 09/04/24 21:42 All radiology interpretation(s) finalized by discharge Discharge Plan Discharge Patient Disposition: Home Clinical Impression: Behcet's disease, Pain crisis Condition: Stable Prescriptions: New ketorolac 10 mg tablet 10 mg PO Q6H PRN (Reason: Kidney stone pain) Qty: 14 0RF No Action montelukast [Singulair] 10 mg tablet 10 mg PO DAILY cetirizine 10 mg tablet 10 mg PO DAILY PRN (Reason: ALLERGIES) cholecalciferol (vitamin D3) 25 mcg (1,000 unit) capsule 25 mcg PO DAILY prednisone 10 mg tablet See Rx Instructions .Route .COMPLEX Qty: 90 1RF Rx Instructions: Take 40mg daily [id number], 30mg QD x5days, then 20mg QD x5days, 15mg x5days stay on 10mg QD Otezla 30 mg tablet 30 mg PO BID Qty: 60 0RF colchicine 0.6 mg tablet 0.6 mg PO BID Qty: 60 0RF acetaminophen [Tylenol Extra Strength] 500 mg Tablet 500 - 1,000 mg PO Q4H PRN (Reason: Pain) tacrolimus 0.1 % ointment 1 applic TOPICAL BID PRN (Reason: Skin Irritation) triamcinolone acetonide 0.1 % Ointment 1 applic TOPICAL BID PRN (Reason: red itchy rash on body) mupirocin 2 % ointment 1 applic TOPICAL BID PRN (Reason: Skin Irritation) diphenhydramine HCl [Benadryl] 25 mg Capsule 25 mg PO TID PRN (Reason: Itching) clobetasol 0.05 % ointment See Rx Instructions .ROUTE .COMPLEX Rx Instructions: APPLY TO THE AFFECTED AREA(S) OF SKIN ON ARMS AND TRUNK TWICE DAILY FOR NO MORE THAN TWO WEEKS PER MONTH. pantoprazole 40 mg tablet,delayed release (DR/EC) 40 mg PO QAM gabapentin 300 mg capsule 300 mg PO TID Discharge Orders: Discharge ED (Routine); Ordered 09/04/24 Ordered By: Guillermo Connell Referrals: Marisela Blackmon FNP [Primary Care Provider] - 1 week Patient Instructions: Behcet Syndrome (ED) Activity Restrictions/Additional Instructions: A prescription for ketorolac has been sent to your pharmacy please pick this up and take this for pain. Please increase your prednisone to 40 mg a day for the next 7 days as this will help with the inflammation also. Please call Dr. Mcleod first thing tomorrow and let him know you are here in the ER and we scanned the records for the visit you had at [facility] to the chart. Print Language: Citizen Of [place] Coding Level of Care Code ED Electrical Lineman for Emiliana Sanchez
[2024-09-04 21:54] LABS: Hematocrit 39.4 % (37-53); Mean Corpuscular Hemoglobin 32.9 pg (27-33); Mean Corpuscular Volume 99.7 fl (82-101); Mean Platelet Volume 8.6 fL (7.4-10.4); Platelet Count 249 10^3/cmm (157-399); Red Blood Count 3.95 10^6/uL (3.85-5.65); Red Cell Distribution Width 15.5 % (12.1-15.1); White Blood Count 7.44 10^3/uL (3.29-11.43)
[2024-09-04] MEDS: HYDROmorphone 0.5 MG/0.5 ML INJ 1 MG IVP ×2 (22:05→23:03)
[2024-09-04] MEDS: methylPREDNISolone sod succ 125 mg/2 mL INJ IVP (22:05)
[2024-09-04] MEDS: ondansetron 2 mg/ML SDV 2 mL 4 MG IVP (22:05)
[2024-09-04 22:13] LABS: Alanine Aminotransferase 15 U/L (0-41); Alkaline Phosphatase 58 U/L (40-130); Aspartate Amino Transferase 14 U/L (0-40); Blood Urea Nitrogen 32 mg/dL (8-23); Calcium 8.1 mg/dL (8.5-10.5); Carbon Dioxide 18 mmol/L (22-29); Chloride 105 mmol/L (98-107); Creatine Phosphokinase 25 U/L (39-308); Globulin 3.5 g/dL (1.3-4.6); Glomerular Filtration Rate 97.6 mL/min (90-130); Glucose 111 mg/dL (65-115); Osmolality Calculated 290 mOsm/kg (285-295); Sodium 136 mmol/L (136-145); Total Bilirubin 0.5 mg/dL (0.15-1.2); Total Protein 6.5 g/dL (6.6-8.7)
[2024-09-04 22:19] LABS: Anion Gap 16.4 (5-19); Potassium 3.4 mmol/L (3.5-5.1)
[2024-09-04 22:33] LABS: Slide Review Slide Review Perform; Total Cells Counted 100 (0-100)
[2024-09-04 22:34] LABS: Absolute Eosinophils 0.2 10^3/cmm (0.0-0.7); Absolute Neutrophil 4.9 10^3/cmm (1.4-6.5); Absolute Segmented Neutrophil 4.6 10/cmm (1.6-7.1); Band Neutrophils Absolute 0.3 10^3/cmm (0.0-1.2); Burr Cells 1+; Eosinophils 3 %; Lymphocytes 19 %; Lymphocytes Absolute 1.4 10^3/cmm (1.2-3.4); Monocytes Absolute 0.7 10^3/cmm (0.1-0.6); Platelet Estimate Normal (Normal); Segmented Neutrophils 62 %
--- NOTE | 2024-09-04 22:38 | PC.NURSE ---
Pt. put on his call light and has complaint that his pain is worse.
[2024-09-04] MEDS: ketorolac 30 mg/mL INJ IVP (23:03)
--- NOTE | 2024-09-04 23:33 | PC.NURSE ---
Pt. states that his pain is better but not all gone after toradol and Dilaudid. is asking when they will be ready to be discharged.
[2024-09-05] VITALS: BP 164/74; PULSE 88; RESP 18; O2SAT 99
== END 2024-09-05 00:01 | disposition home or self-care (01) ==
PROVIDERS: Emergency Provider Emergency Medicine; PCP Nurse Practitioner
DX: M35.2 Behcet's disease (principal); R52 Pain, unspecified; I10 Essential (primary) hypertension
CPT/HCPCS: 36415; 80053; 82550; 85007; 85025; 96374; 96375; 96376; 99284; J1171; J1885; J2405; J2919

== ENCOUNTER → 2024-09-16 13:50 | Outpatient (BNVA) | payer OTHER, SELFPAY | PROVIDERS: PCP Nurse Practitioner; Visit Provider Dermatology | DX: M35.2 Behcet's disease (principal) | CPT/HCPCS: 99214 ==

== ENCOUNTER 2024-10-07 09:04 | Oncology outpatient (recurring) (ONCR) | payer OTHER, SELFPAY ==
[2024-10-07] MEDS: acetaminophen 325 mg Tablet 650 MG PO (09:45)
[2024-10-07] MEDS: sodium chloride 0.9% 250 ML 75 ML IV (09:46)
[2024-10-07] MEDS: diphenhydrAMINE 50 mg/mL SDV 1mL 25 MG IVP (09:46)
[2024-10-07] MEDS: methylPREDNISolone sod succ 40 mg/mL INJ IVP (09:51)
[2024-10-07 10:16] LABS: Basophils % 0.6 %; Eosinophils # 0.2 10^3/uL (0.0-0.8); Eosinophils % 3.3 %; Hematocrit 35.4 % (37-53); Lymphocytes # 0.6 10^3/uL (0.8-4.8); Lymphocytes % 9.1 %; Mean Corpuscular HGB Conc 31.6 g/dL (30-55); Mean Corpuscular Hemoglobin 30.5 pg (27-33); Mean Corpuscular Volume 96.5 fl (82-101); Mean Platelet Volume 8.7 fL (7.4-10.4); Monocytes # 0.3 10^3/uL (0.2-0.9); Monocytes % 4.8 %; Neutrophils # 5.45 10^3/uL (1.8-7.7); Neutrophils % 77.5 %; Nucleated Red Blood Cells % 0 %; Platelet Count 265 10^3/cmm (157-399); Red Blood Count 3.67 10^6/uL (3.85-5.65); Red Cell Distribution Width 13.9 % (12.1-15.1); White Blood Count 7.03 10^3/uL (3.29-11.43)
[2024-10-07] MEDS: infliximab-abda 400 MG in sodium chloride 0.9% 250 ML 10 MG IV (10:18)
[2024-10-07 10:20] VITALS: BP 110/73; PULSE 77; RESP 16; TEMP 36.7; O2SAT 94
[2024-10-07 10:22] LABS: Erythrocyte Sedimentation Rate 12 mm/hr (0-10)
[2024-10-07 10:35] VITALS: BP 109/68; PULSE 71; RESP 17; TEMP 36.8; O2SAT 95
[2024-10-07 10:39] LABS: Alanine Aminotransferase 6 U/L (0-41); Albumin Level 2.8 g/dL (3.5-5.2); Alkaline Phosphatase 54 U/L (40-130); Aspartate Amino Transferase 6 U/L (0-40); C Reactive Protein 23.7 mg/L (0.0-4.9); Globulin 2.9 g/dL (1.3-4.6); Glomerular Filtration Rate 113.9 mL/min (90-130); Total Bilirubin 0.4 mg/dL (0.15-1.2); Total Protein 5.7 g/dL (6.6-8.7)
[2024-10-07 10:44] LABS: Slide Review Slide Review Perform
[2024-10-07 10:55] VITALS: BP 106/68; PULSE 73; RESP 16; TEMP 36.4; O2SAT 94
[2024-10-07 11:10] VITALS: BP 112/73; PULSE 76; RESP 16; TEMP 36.7; O2SAT 96
[2024-10-07 12:40] VITALS: BP 115/72; PULSE 80; RESP 16; TEMP 36.3; O2SAT 96
[2024-10-07 14:19] VITALS: BP 115/72; PULSE 80; RESP 17; TEMP 36.3; O2SAT 96
== END 2024-10-25 23:59 | disposition home or self-care (01) ==
PROVIDERS: Absent Provider Internal Medicine; PCP Nurse Practitioner; Visit Provider Internal Medicine Rheumatology
DX: M35.2 Behcet's disease (principal); Z79.899 Other long term (current) drug therapy
CPT/HCPCS: 80076; 82565; 85025; 85651; 86140; 96375; 96413; 96415; 99214; A4222; J1200; J2919; J7050; J9999; Q5104

== ENCOUNTER 2024-10-10 15:15 | Inpatient (IN) | payer OTHER, SELFPAY ==
[2024-10-10 15:20] VITALS: BP 132/91; PULSE 118; RESP 18; TEMP 36.6; O2SAT 100; BMI 28.8
--- NOTE | 2024-10-10 16:02 | PC.PHAR ---
patient is [facility], sent fax and received the fax prior to patient getting a room- updated med rec off [facility] last taken is unknown until i can verify if meds were taken today
--- NOTE | 2024-10-10 17:22 | ED_ITS ---
HPI - Extremity Problem General: Chief complaint: Extremity Injury, Lower Stated complaint: multi lac both legs Time Seen by Provider: 10/10/24 15:51 Related Data Home Medications ?Medication ?Instructions ?Recorded ?Confirmed acetaminophen 500 mg tablet 500 - 1,000 mg PO Q4H PRN Pain 06/10/19 10/10/24 (Tylenol Extra Strength) cetirizine 10 mg tablet 10 mg PO DAILY PRN ALLERGIES 07/03/23 10/10/24 cholecalciferol (vitamin D3) 25 25 mcg PO DAILY 10/10/24 mcg (1,000 unit) capsule montelukast 10 mg tablet 10 mg PO DAILY 07/03/2309/25 (Singulair) mupirocin 2 % topical ointment 1 applic topical BID IA N Skin 12/27/23 10/10/24 Irritation tacrolimus 0.1 % topical ointment 1 applic topical BID PRN Skin 12/27/23 10/10/24 Irritation triamcinolone acetonide 0.1 % 1 applic topical BID PRN red itchy 12/27/23 10/10/24 topical ointment rash on body clobetasol 0.05 % topical ointment See Rx Instructions .Route .COMPLEX 08/27/24 10/10/24 diphenhydramine HCl 25 mg capsule 25 mg PO TID PRN Itc ollie 08/27/24 10/10/24 (Benadryl) pantoprazole 40 mg tablet,delayed 40 mg PO QAM 5 10/10/24 release Previous Rx's ?Medication ?Instructions ?Recorded apremilast 30 mg tablet (Otezla) 30 mg PO BID #60 tabs 08/04/24 indomethacin 50 mg capsule 50 mg PO TID PRN pain (scal e score 10/08/24 7-10) #90 caps prednisone 10 mg tablet 10 mg PO DAILY #90 tabs 09/25 09/19 pregabalin 100 mg capsule (Lyrica) 200 mg (2 x 100 mg) PO BID 10/08/24 FIBROMYALGIA 90 days #360 caps Allergies Allergy/AdvReac Type Severity Reaction Status Date / Time Sulfa (Sulfonamide Allergy Unknown Unknown Verified 10/10/24 15:27 Antibiotics) hydrocodone Allergy ALGY-Rash Verified 10/10/24 15:27 Penicillins Allergy ALGY-Hives Verified 10/10/24 15:27 methotrexate AdvReac Severe severe Verified 10/10/24 15:27 decrease WBC's levofloxacin AdvReac Intermediate rash Verified 10/10/24 15:27 PFSH ED PFSH: Medical History Allergies Rash Immunization counseling High risk medication use Oral ulceration Male genital ulcer Behcet's disease Inflammatory arthritis History of chronic hypertension Surgical History History of appendectomy History of tonsillectomy Family History Other Diabetes Hypertension Stroke Denies family history of Lupus (systemic lupus erythematosus) Rheumatoid arthritis Liver disease Polycystic kidney disease Heart disease Hyperlipidemia Kidney stones Family history of premature coronary artery disease Lung disease Cancer Social History Smoking and tobacco/nicotine status: never used tobacco/nicotine Alcohol intake: never Course Vital Signs: Vital signs: Vital Signs Temperature 97.8 F 10/10/24 15:20 Pulse Rate 118 H 10/10/24 15:20 Respiratory Rate 18 10/10/24 15:20 Blood Pressure 132/91 10/10/24 15:20 Pulse Oximetry 100 10/10/24 15:20 Oxygen Delivery Me thod Room Air 10/10/24 15:20 Discharge Plan Discharge Condition: Stable Prescriptions: No Action montelukast [Singulair] 10 mg tablet 10 mg PO DAILY cetirizine 10 mg tablet 10 mg PO DAILY PRN (Reason: ALLERGIES) cholecalciferol (vitamin D3) 25 mcg (1,000 unit) capsule 25 mcg PO DAILY Otezla 30 mg tablet 30 mg PO BID Qty: 60 0RF prednisone 10 mg tablet 10 mg PO DAILY Qty: 90 1RF indomethacin 50 mg capsule 50 mg PO TID PRN (Reason: pain (scale score 7-10)) Qty: 90 0RF Rx Instructions: administer with food or milk pregabalin [Lyrica] 100 mg capsule 200 mg PO BID 90 Days Qty: 360 1RF acetaminophen [Tylenol Extra Strength] 500 mg Tablet 500 - 1,000 mg PO Q4H PRN (Reason: Pain) tacrolimus 0.1 % ointment 1 applic TOPICAL BID PRN (Reason: Skin Irritation) triamcinolone acetonide 0.1 % Ointment 1 applic TOPICAL BID PRN (Reason: red itchy rash on body) mupirocin 2 % ointment 1 applic TOPICAL BID PRN (Reason: Skin Irritation) diphenhydramine HCl [Benadryl] 25 mg Capsule 25 mg PO TID PRN (Reason: Itching) clobetasol 0.05 % ointment See Rx Instructions .ROUTE .COMPLEX Rx Instructions: APPLY TO THE AFFECTED AREA(S) OF SKIN ON ARMS AND TRUNK TWICE DAILY FOR NO MORE THAN TWO WEEKS PER MONTH. pantoprazole 40 mg tablet,delayed release (DR/EC) 40 mg PO QAM Referrals: Marisela Blackmon FNP [Primary Care Provider, Nurse Practitioner] Print Language: Ukrainian Coding Level of Care Code ED Manager Environmental Affairs for Emiliana Sanchez
[2024-10-10 17:42] VITALS: BP 128/75; PULSE 106; O2SAT 98
[2024-10-10] MEDS: tetanus-dipt-pertussis 0.5 mL SDV IM (18:12)
[2024-10-10 18:16] LABS: Basophils % 0.4 %; Eosinophils # 0.8 10^3/uL (0.0-0.8); Eosinophils % 9.8 %; Hematocrit 38.7 % (37-53); Lymphocytes # 1.4 10^3/uL (0.8-4.8); Mean Corpuscular HGB Conc 30.7 g/dL (30-55); Mean Corpuscular Hemoglobin 29.8 pg (27-33); Mean Platelet Volume 8.6 fL (7.4-10.4); Monocytes # 0.4 10^3/uL (0.2-0.9); Monocytes % 4.5 %; Neutrophils # 5.41 10^3/uL (1.8-7.7); Neutrophils % 63.6 %; Nucleated Red Blood Cells % 0 %; Platelet Count 270 10^3/cmm (157-399); Red Blood Count 3.99 10^6/uL (3.85-5.65); Red Cell Distribution Width 14.2 % (12.1-15.1); White Blood Count 8.49 10^3/uL (3.29-11.43)
[2024-10-10 18:33] LABS: Alanine Aminotransferase 9 U/L (0-41); Albumin Level 3.4 g/dL (3.5-5.2); Alkaline Phosphatase 63 U/L (40-130); Anion Gap 16.7 (5-19); Aspartate Amino Transferase 8 U/L (0-40); Blood Urea Nitrogen 21 mg/dL (8-23); Calcium 8.3 mg/dL (8.5-10.5); Carbon Dioxide 25 mmol/L (22-29); Chloride 105 mmol/L (98-107); Globulin 2.9 g/dL (1.3-4.6); Glomerular Filtration Rate 85.2 mL/min (90-130); Glucose 98 mg/dL (65-115); Osmolality Calculated 299 mOsm/kg (285-295); Potassium 3.7 mmol/L (3.5-5.1); Sodium 143 mmol/L (136-145); Total Bilirubin 0.3 mg/dL (0.15-1.2); Total Protein 6.3 g/dL (6.6-8.7)
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
[2024-10-10 19:00] VITALS: BP 129/72; PULSE 103; RESP 22; O2SAT 99
[2024-10-10 19:04] LABS: Slide Review Slide Review Perform
[2024-10-10 19:05] LABS: INR 1.09 (0.8-1.2)
[2024-10-10] MEDS: sodium chloride 0.9% 1,000 ML 999 ML IV (19:07)
[2024-10-10 19:09] VITALS: RESP 22
[2024-10-10] MEDS: ondansetron 2 mg/ML SDV 2 mL 4 MG IVP (19:09)
[2024-10-10] MEDS: morphine 4 mg/mL SDV 1 mL IVP (19:09)
[2024-10-10] MEDS: iohexol 350 mg/mL 500 mL Btl (per mL) IV (19:25)
--- NOTE | 2024-10-10 20:48 | PM.HP ---
Providers/Chief Complaint Admitting Physician: Kristina Oshea MD Primary Care Provider: LEEANN Grove Chief Complaint: multi lac both legs Review of Systems Const: Denies: fever(s), chills, body aches, change in appetite, fatigue or malaise Eyes: Denies: change in vision or blurry vision ENMT: Reports: nasal congestion (chronic) and other (no dysphagia); Denies: odynophagia, ear or mastoid pain, ear discharge or nasal discharge Card: Denies: chest pain, palpitations, lightheadedness or syncope Resp: Denies: dyspnea, non-productive cough or wheezing GI: Denies: abdominal pain, nausea, vomiting, diarrhea, constipation, hematochezia or melena : Denies: difficulty urinating, dysuria or hematuria Musc: Reports: joint pain (chronic - due to his Behcet's disease) and other (chronic myalgias due to Behcet's) Skin/Breast: Reports: rash and new lesions Neuro: Denies: headache(s) or dizziness Psych: Denies: anxiety, depression, suicidal ideation or homicidal ideation Endo: Denies: cold intolerance or heat intolerance [place]/Lymph: Reports: easy bruising; Denies: easy bleeding All/Imm: Denies: food intolerance Medications/Allergies Home Medications ?Medication ?Instructions ?Recorded ?Confirmed ?Last Taken ?Type acetaminophen 500 mg tablet 500 - 1,000 mg PO Q4H PRN Pain 06/10/19 10/10/24 02/17/24 History (Tylenol Extra Strength) cetirizine 10 mg tablet 10 mg PO DAILY PRN ALLERGIES 07/03/23 10/10/24 02/20/24 History cholecalciferol (vitamin D3) 25 25 mcg PO DAILY 07/03/23 10/10/24 08/26/24 History mcg (1,000 unit) capsule montelukast 10 mg tablet 10 mg PO DAILY 07/03/23 10/10/24 08/26/24 History (Singulair) mupirocin 2 % topical ointment 1 applic topical BID PRN Skin 12/27/23 10/10/24 2 Weeks Ago History Irritation ~02/07/24 tacrolimus 0.1 % topical ointment 1 applic topical BID PRN Skin 12/27/23 10/10/2402/19/24 History Irritation triamcinolone acetonide 0.1 % 1 applic topical BID PRN red itchy 12/27/23 10/10/24 3 Weeks Ago History topical ointment rash on body ~01/31/24 apremilast 30 mg tablet (Otezla) 30 mg PO BID #60 tabs 08/04/24 10/10/24 08/26/24 Rx clobetasol 0.05 % topical ointment See Rx Instructions .Route .COMPLEX 08/27/24 10/10/24 Unknown History diphenhydramine HCl 25 mg capsule 25 mg PO TID PRN Itching 08/27/24 10/10/24 Unknown History (Benadryl) pantoprazole 40 mg tablet,delayed 40 mg PO QAM 08/27/24 10/10/24 08/26/24 History release indomethacin 50 mg capsule 50 mg PO TID PRN pain (scale score 10/08/24 10/10/24 Unknown Rx 7-10) #90 caps prednisone 10 mg tablet 10 mg PO DAILY #90 tabs 10/08/24 10/10/24 Unknown Rx pregabalin 100 mg capsule (Lyrica) 200 mg (2 x 100 mg) PO BID 10/08/24 10/10/24 Unknown Rx FIBROMYALGIA 90 days #360 caps Allergies Allergy/AdvReac Type Severity Reaction Status Date / Time Sulfa (Sulfonamide Allergy Unknown Unknown Verified 10/10/24 15:27 Antibiotics) hydrocodone Allergy ALGY-Rash Verified 10/10/24 15:27 Penicillins Allergy ALGY-Hives Verified 10/10/24 15:27 methotrexate AdvReac Severe severe Verified 10/10/24 15:27 decrease WBC's levofloxacin AdvReac Intermediate rash Verified 10/10/24 15:27 PFSH Acute PFSH: Medical History Allergies Rash Immunization counseling High risk medication use Oral ulceration Male genital ulcer Behcet's disease Inflammatory arthritis History of chronic hypertension Surgical History History of appendectomy History of tonsillectomy Family History Father Stroke Hypertension Mother Hypertension Denies family history of Lupus (systemic lupus erythematosus) Rheumatoid arthritis Polycystic kidney disease Heart disease Hyperlipidemia Family history of premature coronary artery disease Cancer Social History (Updated 10/10/24 @ 22:09 by Kristina Oshea MD) Smoking and tobacco/nicotine status: former use of tobacco/nicotine Quit status (tobacco/nicotine): has quit using Year quit tobacco: 1985 Former quit date comment: used to chew tobacco Alcohol intake: never Substance/Drug Use: never Vitals/I&O/Wt Last Vital Signs Temp 97.8 F 10/10/24 15:20 Pulse 103 H 10/10/24 19:00 Resp 22 H 10/10/24 19:09 BP 129/72 10/10/24 19:00 Pulse Ox 99 10/10/24 19:00 O2 Del Method Room Air 10/10/24 17:42 Weight last 48 hrs Weight 73.936 kg Data 10/10/24 18:01 10/10/24 18:01 A&P PDMP PDMP Reviewed: Not Reviewed Coding Level of Care Code Acute Code for Chg Daniel
[2024-10-10] MEDS: sodium chloride 0.9% 1,000 ML 200 ML IV (22:15)
[2024-10-10] MEDS: cefepime 2,000 mg SDV 2000 MG IVP (22:15)
--- NOTE | 2024-10-10 22:26 | PM.CONSULT ---
Providers/Reason For Consult Consulting Physician/Specialty*: Kristina Oshea I Reason for Consult*: Medical Management Requesting Physician: Carrington Elam MD Primary Care Provider: LEEANN Grove History of Present Illness History of Present Illness Mark Rodriguez is a 64 yo w/ Behcet's Disease and allergic rhinitis who presented to the ED on 10/10/2024 after he got caught in the Power Take Off (PTO) on his tractor and sustained injuries. The patient is a gray and was planting with his tractor when he got caught in the PTO on his tractor, which tore his clothes. 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 He finished his planting and came to the hospital. In the ED, his vital signs were significant for tachycardia and tachypnea. A R. Knee Xray was done that was negative for a fracture. A CT scan of the hip was done that showed an acute nondisplaced fracture of the right pubic bone and superior and inferior rami as well as a mild to moderate pelvic sidewall hematoma and edematous enlargement of the right obturator muscles. A CT abdomen and pelvis was then done that showed subtle wall thickening in the base and right lateral urinary bladder wall, with a recommendation for a CT cystography to evaluate the integrity of the bladder wall; although no urinary extravasation was noted to strongly suggest disruption of the bladder. Given the patient's traumatic accident and fractures, the patient was admitted to the surgery service with the hospitalist consulted for medical management. Orthopedic surgery was consulted from the ED, who recommended nonsurgical intervention. The hospitalist service recommended evaluation of the bladder with a CT cystography or transfer to another hospital with Urology service in the ED. However, the evaluation was able to be done in the ED, by the ED physician that saw the patient. Pelvic CT that was done to evaluate the cystogram, showed no contrast extravasation to indicate transmural bladder injury. It also showed improvement in the right anterior lower pelvic sidewall hematoma, due to the redistribution, while once again highlighting the nondisplaced acute fractures of the right pubic bone and superior and inferior rami. 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) and other (chronic myalgias - due to Behcet's disease) Skin/Breast: Reports: new lesions Neuro: Denies: headache(s) or dizziness Psych: Denies: anxiety, depression, suicidal ideation or homicidal ideation Endo: Denies: cold intolerance or heat intolerance Russel/Lymph: Reports: easy bruising; Denies: easy bleeding All/Imm: Denies: food intolerance Medications/Allergies Home Medications ?Medication ?Instructions ?Recorded ?Confirmed ?Last Taken ?Type acetaminophen 500 mg tablet 500 - 1,000 mg PO Q4H PRN Pain 06/10/19 10/10/24 02/17/24 History (Tylenol Extra Strength) cetirizine 10 mg tablet 10 mg PO DAILY PRN ALLERGIES 07/03/23 10/10/24 02/20/24 History cholecalciferol (vitamin D3) 25 25 mcg PO DAILY 07/03/23 10/10/24 08/26/24 History mcg (1,000 unit) capsule montelukast 10 mg tablet 10 mg PO DAILY 07/03/23 10/10/24 08/26/24 History (Singulair) mupirocin 2 % topical ointment 1 applic topical BID PRN Skin 12/27/23 10/10/24 2 Weeks Ago History Irritation ~02/07/24 tacrolimus 0.1 % topical ointment 1 applic topical BID PRN Skin 12/27/23 10/10/24 02/20/24 History Irritation triamcinolone acetonide 0.1 % 1 applic topical BID PRN red itchy 12/27/23 10/10/24 3 Weeks Ago History topical ointment rash on body ~01/31/24 apremilast 30 mg tablet (Otezla) 30 mg PO BID #60 tabs 08/04/24 10/10/24 08/26/24 Rx clobetasol 0.05 % topical ointment See Rx Instructions .Route .COMPLEX 08/27/24 10/10/24 Unknown History diphenhydramine HCl 25 mg capsule 25 mg PO TID PRN Itching 08/27/24 10/10/24 Unknown History (Benadryl) pantoprazole 40 mg tablet,delayed 40 mg PO QAM 08/27/24 10/10/24 08/26/24 History release indomethacin 50 mg capsule 50 mg PO TID PRN pain (scale score 10/08/24 10/10/24 Unknown Rx 7-10) #90 caps prednisone 10 mg tablet 10 mg PO DAILY #90 tabs 10/08/24 10/10/24 Unknown Rx pregabalin 100 mg capsule (Lyrica) 200 mg (2 x 100 mg) PO BID 10/08/24 10/10/24 Unknown Rx FIBROMYALGIA 90 days #360 caps Allergies Allergy/AdvReac Type Severity Reaction Status Date / Time Sulfa (Sulfonamide Allergy Unknown Unknown Verified 10/10/24 15:27 Antibiotics) hydrocodone Allergy ALGY-Rash Verified 10/10/24 15:27 Penicillins Allergy ALGY-Hives Verified 10/10/24 15:27 methotrexate AdvReac Severe severe Verified 10/10/24 15:27 decrease WBC's levofloxacin AdvReac Intermediate rash Verified 10/10/24 15:27 Current Medications Generic Name Dose Route Start Last Admin Trade Name Freq PRN Reason Stop Dose Admin Cefepime HCl 2,000 mg 10/10/24 21:45 10/10/24 22:15 Cefepime 2,000 Mg Sdv IVP 2,000 mg Q8H SHANNAN Administration Protocol Sodium Chloride 1,000 mls @ 200 mls/hr 10/10/24 22:00 10/10/24 22:15 Sodium Chloride 0.9% IV 10/11/24 02:59 200 mls/hr .Q5H SHANNAN Administration PFSH Acute PFSH: Medical History Allergies Rash Immunization counseling High risk medication use Oral ulceration Male genital ulcer Behcet's disease Inflammatory arthritis History of chronic hypertension Surgical History History of appendectomy History of tonsillectomy Family History Father Stroke Hypertension Mother Hypertension Denies family history of Lupus (systemic lupus erythematosus) Rheumatoid arthritis Polycystic kidney disease Heart disease Hyperlipidemia Family history of premature coronary artery disease Cancer Social History Smoking and tobacco/nicotine status: former use of tobacco/nicotine Quit status (tobacco/nicotine): has quit using Year quit tobacco: 1985 Former quit date comment: used to chew tobacco Alcohol intake: never Substance/Drug Use: never Vitals/I&O/Wt Last Vital Signs Temp 97.8 F 10/10/24 15:20 Pulse 103 H 10/10/24 19:00 Resp 22 H 10/10/24 19:09 BP 129/72 10/10/24 19:00 Pulse Ox 99 10/10/24 19:00 O2 Del Method Room Air 10/10/24 17:42 Weight last 48 hrs Weight 73.936 kg Physical Exam Const: GENERAL APPEARANCE: cooperative; not comfortable ORIENTATION/CONSCIOUSNESS: Yes awake, Yes oriented to person, Yes oriented to place and Yes oriented to time HENMT: COMMON NORMALS: normocephalic, atraumatic, external ears normal and Normal external nose present HEAD & SCALP: normocephalic and atraumatic NOSE: Normal external nose present EXTERNAL EAR: Yes external ears normal MOUTH: Normal oral and palatal mucosa present THROAT: posterior oropharynx normal OTHER: behcet lesions on lips Eye: COMMON NORMALS: Equal, round and reactive pupils present and conjunctivae normal CONJUNCTIVA: Yes conjunctivae normal PUPIL: Yes Equal, round and reactive pupils present EOM: No EOM abnormal Neck/C-Spine: COMMON NORMALS: Thyroid normal THYROID: Thyroid normal CAROTIDS: No bruit CERVICAL SPINE: Yes cervical ROM normal Lymph: OTHER: No cervical or supraclavicular LAD Resp: OTHER: CTAB no w/r/r Cardio: OTHER: RRR, no m/r/g. 2+ radial and DP pulses bilaterally. No carotid bruits b/l GI: OTHER: BS+, Tenderness to palpation in the RLQ. No guarding, rigidity, rebound tenderness, or hepatosplenomegaly Extremity: NARRATIVE EXTREMITY EXAM: Mild R. LE swelling and tenderness, but no erythema. No cyanosis or edema. Neuro: SENSORIUM/ORIENTATION: Yes oriented to person, Yes oriented to place and Yes oriented to time CRANIAL NERVES: Yes CN normal except as noted SENSORY EXAM: No sensory level loss detected MOTOR EXAM: 5/5 motor strength present throughout and Normal motor muscle tone present throughout Psych: COMMON NORMALS: Normal thought process present and speech normal APPEARANCE: Yes grossly normal ATTITUDE: Yes calm and Yes engaged ACTIVITY/MOTOR BEHAVIOR: Yes appropriate eye contact SPEECH: Yes normal speech MOOD & AFFECT: Yes euthymic mood THOUGHT PROCESS: Normal thought process present THOUGHT CONTENT: Yes Normal thought content present ATTENTION/CONCENTRATION: Yes attention grossly intact MEMORY/COGNITION: Yes memory grossly intact Skin: NARRATIVE SKIN EXAM: erythema in the b/l thighs and appearance of what seems like early formation of blisters. Skin abrasion and tear in L. inner thigh close to the knee. Mild abrasion on R. anterior mid-tibia. Wound on the dorsal aspect of the L. 3rd digit of the PIP joint. Data 10/10/24 18:01 10/10/24 18:01 A&P Assessment and plan (1) Closed fracture of superior pubic ramus: (2) Closed fracture of inferior pubic ramus: (3) Pubic bone fracture: (4) Accident caused by farm tractor: Plan aMrk Rodriguez is a 64 yo w/ Behcet's Disease and allergic rhinitis who presented to the ED on 10/10/2024 after he got caught in the Power Take Off (PTO) on his tractor and sustained injuries. #Tractor Accident #Acute nondisplaced fracture of the R. Pubic bone #Acute nondisplaced fracture of the R.superior and Inferior Rami - Management per primary - CT Cystography is negative for transmural bladder injury. - ordered Percocet for Pain control #Skin abrasions and tears - due to tractor accident - Ordered cefepime given that he is immunocompromised and is at risk for infection #Dehydration: s/p 1L NS in the ED - Ordered another 1L at 250cc/hr and continuous NS at 100cc/hr afterwards #Behcet's Disease: Had Infliximab (Remicade) infusion this week. - Resumed Prednisone. Resumed Pantoprazole ordered for chronic prednisone use. Resumed Pregabalin - - On Apremilast (Otezla) - not carried on formulary at this time #Allergy Rhinitis: Year round - Resumed home meds. DVT ppx: defer to primary. PDMP PDMP Reviewed: Not Reviewed Coding Level of Care Code 46376 High Time for a total of 80 minutes, includes reviewing past or interval history, examining/interviewing patient, placing orders, counseling patient/family/other support, updating patient/family/other support, discussing plan of care with staff, communicating with other healthcare providers, documenting encounter and coordinating care Other Coding Information Focused coding review requested Diagnoses Closed fracture of superior pubic ramus S32.511A Encounter type: initial encounter Laterality: right Closed fracture of inferior pubic ramus S32.591A Encounter type: initial encounter Laterality: right Pubic bone fracture S32.501A Encounter type: initial encounter Fracture type: closed Laterality: right Sublocation of pubis: unspecified portion of pubis Accident caused by farm tractor W30.9XXA
--- NOTE | 2024-10-10 22:27 | CTR_ITS ---
PROCEDURE INFORMATION: Exam: CT Pelvis Without Contrast Exam date and time: 10/10/2024 11:10 PM Age: 64 years old Clinical indication: Injury or trauma; Blunt trauma (contusions or hematomas); Does not apply; Prior surgery; Surgery date: 6+ months; Surgery type: Appy; Concern for possible bladder injury noted on abd pelvis CT. ; Additional info: Concern for bladder injury, 500 cc of 10-1 gastrografin infused via retrograde cystogram TECHNIQUE: Imaging protocol: Computed tomography of the pelvis without contrast. Radiation optimization: All CT scans at this facility use at least one of these dose optimization techniques: automated exposure control; mA and/or kV adjustment per patient size (includes targeted exams where dose is matched to clinical indication); or iterative reconstruction. Other contrast: Catheter, 500CC OF 10CC WATER TO 1CC GASTROGRAFFIN; COMPARISON: CT abdomen pelvis w con* [id number] 10/10/2024 7:25 PM RADIATION DOSE METRICS: Total DLP (mGy-cm): 380.49 FINDINGS: Tubes, catheters and devices: The bladder has been filled retrogradely via Drew's catheter. No evidence of extravasation of injected contrast. Opacification of the ureters and renal collecting systems likely due to previously excreted intravenous contrast. Intestine: Visualized small and large intestine are unremarkable. Appendix: No evidence of appendicitis. Intraperitoneal space: Unremarkable. No free air. No significant fluid collection. Lymph nodes: Unremarkable. No enlarged lymph nodes. Reproductive: Normal as visualized. Urinary bladder: Normal. No mass. Bones/joints: Known fracture of the right pubic bone and rami again noted without displacement. Soft tissues: Known contusive edema and enlargement of the right obturator muscles again demonstrated. Previous sheet like hematoma of the right anterior pelvic sidewall has decreased from the study earlier the same day at 7:[address]/CT pelvis wo con [id number] IMPRESSION: 1. No contrast extravasation to indicate transmural bladder injury . 2. Previous right anterior lower pelvic sidewall hematoma has decreased from the study earlier the same day due to redistribution. No progressive hematoma. 3. Known nondisplaced acute fractures of the right pubic bone and rami .
[2024-10-10 23:32] VITALS: BP 119/90; PULSE 76; RESP 16; O2SAT 96
[2024-10-11] VITALS (8 sets, daily range): BP systolic 98–122; BP diastolic 58–80; PULSE 64–75; RESP 15–18; TEMP 36.3–37.1; O2SAT 94–100; BMI 28.8
[2024-10-11 00:24] LABS: Creatine Phosphokinase 18 U/L (39-308); Magnesium 1.9 mg/dL (1.7-2.3)
[2024-10-11] MEDS: predniSONE 20 mg Tablet 10 MG PO (00:39)
--- NOTE | 2024-10-11 00:39 | PM.HP ---
Providers/Chief Complaint Admitting Physician: Kitty Becerra MD Primary Care Provider: LEEANN Grove Chief Complaint: multi lac both legs History of Present Illness Mark Rodriguez is a 64 year old male with Bechet's disease who presented to the ED after tractor PTO from which he sustained multiple injuries. Apparently, his jeans got caught in the PTO and he was able to extricate himself by cutting his close with a knife. He finished his work before or presenting to the hospital. Multiple abrasions to bilateral thighs and knees, acute nondisplaced fracture of the right pubic bone and superior and inferior rami, [id number] sheet-like pelvic sidewall hematoma (5.4 cm in diameter, 1.5 cm in thickness) and edematous enlargement of the right obturator muscles/moderate contusive enlargement of the obturator muscles. Additionally, subtle wall thickening in the base and right lateral urinary bladder wall was demonstrated on a CT of the abdomen and pelvis. Follow-up of CT cystography demonstrated, no contrast extravasation to indicate transmural bladder injury and previous right anterior lower pelvic sidewall hematoma has decreased from the study earlier the same day due to redistribution, and no progressive hematoma. His chief complaint is hip pain and lower extremity pain associated with the pelvic fractures. He is able to move all extremities, however range of motion is limited, but this is secondary to pain from the pelvic fractures. Review of Systems Const: Reports: other (Chronic muscle weakness numbness due to Behcet's disease.); Denies: fever(s), chills or fatigue Eyes: Denies: change in vision, blurry vision or eye discomfort ENMT: Denies: mouth pain, ear discharge, change in hearing or nasal discharge Card: Denies: chest pain, palpitations, irregular heart rhythm, lightheadedness or syncope Resp: Denies: dyspnea, productive cough or wheezing GI: Denies: abdominal pain, nausea, vomiting, hematemesis, bloating or hematochezia : Denies: difficulty urinating, dysuria or urinary hesitancy Musc: Reports: joint pain (Chronic and associated with Behcet's disease.), muscle cramps and other (Reports hip/lower extremity pain secondary to pelvic fractures.) Skin/Breast: Reports: other (Multiple abrasions and bruising) Neuro: Reports: other; Denies: headache(s), numbness in extremities, weakness in extremities, sensory changes or dizziness Psych: Denies: anxiety, depression or difficulty concentrating Medications/Allergies Home Medications ?Medication ?Instructions ?Recorded ?Confirmed ?Last Taken ?Type acetaminophen 500 mg tablet 500 - 1,000 mg PO Q4H PRN Pain 06/10/19 10/10/24 02/17/24 History (Tylenol Extra Strength) cetirizine 10 mg tablet 10 mg PO DAILY PRN ALLERGIES 07/03/23 10/10/24 02/20/24 History cholecalciferol (vitamin D3) 25 25 mcg PO DAILY 07/03/23 10/10/24 08/26/24 History mcg (1,000 unit) capsule montelukast 10 mg tablet 10 mg PO DAILY 07/03/23 10/10/24 08/26/24 History (Singulair) mupirocin 2 % topical ointment 1 applic topical BID PRN Skin 12/27/23 10/10/24 2 Weeks Ago History Irritation ~02/07/24 tacrolimus 0.1 % topical ointment 1 applic topical BID PRN Skin 12/27/23 10/10/24 02/20/24 History Irritation triamcinolone acetonide 0.1 % 1 applic topical BID PRN red itchy 12/27/23 10/10/24 3 Weeks Ago History topical ointment rash on body ~01/31/24 apremilast 30 mg tablet (Otezla) 30 mg PO BID #60 tabs 08/04/24 10/10/24 08/26/24 Rx clobetasol 0.05 % topical ointment See Rx Instructions .Route .COMPLEX 08/27/24 10/10/24 Unknown History diphenhydramine HCl 25 mg capsule 25 mg PO TID PRN Itching 08/27/24 10/10/24 Unknown History (Benadryl) pantoprazole 40 mg tablet,delayed 40 mg PO QAM 08/27/24 10/10/24 08/26/24 History release indomethacin 50 mg capsule 50 mg PO TID PRN pain (scale score 10/08/24 10/10/24 Unknown Rx 7-10) #90 caps prednisone 10 mg tablet 10 mg PO DAILY #90 tabs 10/08/24 10/10/24 Unknown Rx pregabalin 100 mg capsule (Lyrica) 200 mg (2 x 100 mg) PO BID 10/08/24 10/10/24 Unknown Rx FIBROMYALGIA 90 days #360 caps Allergies Allergy/AdvReac Type Severity Reaction Status Date / Time Sulfa (Sulfonamide Allergy Unknown Unknown Verified 10/10/24 15:27 Antibiotics) hydrocodone Allergy ALGY-Rash Verified 10/10/24 15:27 Penicillins Allergy ALGY-Hives Verified 10/10/24 15:27 methotrexate AdvReac Severe severe Verified 10/10/24 15:27 decrease WBC's levofloxacin AdvReac Intermediate rash Verified 10/10/24 15:27 PFSH Acute PFSH: Medical History Allergies Rash Immunization counseling High risk medication use Oral ulceration Male genital ulcer Behcet's disease Inflammatory arthritis History of chronic hypertension Surgical History History of appendectomy History of tonsillectomy Family History Father Stroke Hypertension Mother Hypertension Denies family history of Lupus (systemic lupus erythematosus) Rheumatoid arthritis Polycystic kidney disease Heart disease Hyperlipidemia Family history of premature coronary artery disease Cancer Social History Smoking and tobacco/nicotine status: former use of tobacco/nicotine Quit status (tobacco/nicotine): has quit using Year quit tobacco: 1985 Former quit date comment: used to chew tobacco Alcohol intake: never Substance/Drug Use: never Vitals/I&O/Wt Last Vital Signs Temp 97.8 F 10/10/24 15:20 Pulse 76 10/10/24 23:32 Resp 16 10/10/24 23:32 BP 119/90 10/10/24 23:32 Pulse Ox 96 10/10/24 23:32 O2 Del Method Room Air 10/10/24 23:32 10/10/24 10/10/24 10/11/24 14:59 22:59 06:59 Intake Total 1000 / 1000 Balance 1000 / 1000 Weight last 48 hrs Weight 163 lb Physical Exam Const: COMMON NORMALS: no acute distress, average body habitus, patient oriented x3, alert and well nourished HENMT: HEAD & SCALP: normal to inspection and atraumatic NOSE: Normal nares present TYMPANIC MEMBRANE: TM's normal bilaterally MOUTH: Normal oral and palatal mucosa present Eye: COMMON NORMALS: Equal, round and reactive pupils present, EOMs intact bilaterally and conjunctivae normal Neck/C-Spine: COMMON NORMALS: full ROM and supple CERVICAL SPINE: Yes cervical ROM normal, No Cervical spine tenderness and No step off deformity Chest: COMMONS NORMALS: normal inspection of the chest and normal palpation of entire chest wall Resp: COMMON NORMALS: normal respiratory effort, No retractions and No use of accessory muscles AUSCULTATION: clear to auscultation bilaterally Cardio: COMMON NORMALS: regular rate GI: COMMON NORMALS: Soft to palpation, non-tender, No hepatosplenomegaly present and no masses : COMMON NORMALS: Yes no CVA tenderness and Yes no scrotal swelling MEATUS: No Blood at meatus present Back/Pelvis: GENERAL BACK: No ecchymosis and No tenderness THORACIC SPINE/UPPER BACK: No thoracic spinal tenderness and No paraspinal muscle tenderness Extremity: COMMON NORMALS: normal to inspection and full ROM RIGHT LOWER EXTREMITY: Yes upper leg Right upper leg: Yes other (Multiple scattered ecchymosis and abrasions.) LEFT LOWER EXTREMITY: Yes upper leg (Multiple scattered ecchymosis and abrasions.) Neuro: COMMON NORMALS: patient oriented x3, CN's II-XII intact bilaterally, moves all extremities (Movement of the right lower extremity somewhat limited due to pelvic pain), no focal motor deficits and no sensory deficits noted Psych: COMMON NORMALS: mental status grossly normal, cooperative and normal affect Skin: OTHER: As noted above, multiple scattered abrasions and ecchymosis of the bilateral thighs. Multiple chronic erythematous lesions consistent with his chronic Behcet's disease. Urinary Catheter Management: Drew: Cath Placed During This Visit: yes, but has since been removed by the nurse Reason for Continuing Indwelling Catheter: Decision to DC Catheter Urinary Catheter Date of Insertion: 10/10/24 Urinary Catheter Time of Insertion: 22:43 Date Urinary Catheter Removed: 10/10/24 Time Urinary Catheter Discontinued: 23:32 Data 10/10/24 18:01 10/11/24 10:37 A&P Assessment and plan (1) Accident caused by farm tractor: -- Plan for tertiary survey tomorrow -- Monitor vital signs and lab work -- As needed pain medications ordered -- Regular diet Questionable bladder findings found on initial CT, CT cystography is negative for transmural bladder injury. Monitor for urinary incontinence, urinary retention, or hematuria. (2) Pubic bone fracture: -- Consult to orthopedic surgeon, although likely nonoperative -- Physical therapy ordered (3) Closed fracture of superior pubic ramus: (4) Closed fracture of inferior pubic ramus: (5) Hematoma: (6) Pelvic hematoma: -- Imaging demonstrates improvement in pelvic hematoma and obturator hematoma -- Trend hemoglobin/hematocrit and hemodynamics -- Okay to start chemical DVT prophylaxis (7) Abrasion, multiple sites: -- Local wound care (8) Multiple fractures: (9) Cutaneous abscess of right knee: (10) Behcet's disease: -- Medical management per hospitalist -- Okay to start home med of Otezla (nonformulary) PDMP PDMP Reviewed: Not Reviewed Attestations Medical Necessity Statement*: Need for continued monitoring of vital signs, blood work, and physical therapy. Coding Level of Care Code Acute Code for Chg Fwd Diagnoses Accident caused by farm tractor, initial encounter W30.9XXA Encounter type: initial encounter Pubic bone fracture S32.501A Encounter type: initial encounter Fracture type: closed Laterality: right Sublocation of pubis: unspecified portion of pubis Closed fracture of superior pubic ramus S32.511A Encounter type: initial encounter Laterality: right Closed fracture of inferior pubic ramus S32.591A Encounter type: initial encounter Laterality: right Hematoma T14.8XXA Pelvic hematoma Abrasion, multiple sites T07.XXXA Multiple fractures T07.XXXA Cutaneous abscess of right knee L02.415 Behcet's disease M35.2
[2024-10-11] MEDS: acetaminophen 325 mg Tablet 650 MG PO ×2 (00:44→19:46)
[2024-10-11] MEDS: ketorolac 30 mg/mL INJ 15 MG IVP (00:45)
[2024-10-11] MEDS: pregabalin 100 mg Capsule 200 MG PO ×3 (01:26→17:02)
[2024-10-11] MEDS: sodium chloride 0.9% 1,000 ML 100 ML IV (03:44)
[2024-10-11] MEDS: pantoprazole DR 40 mg Tablet PO (05:23)
[2024-10-11] MEDS: cefepime 2,000 mg SDV 2000 MG IVP (05:23)
[2024-10-11] MEDS: cetirizine 10 mg Tablet PO (08:36)
--- NOTE | 2024-10-11 08:55 | P.PN_ITS ---
Vitals/I&O/Wt Last Vital Signs Temp 97.4 F L 10/11/24 07:35 Pulse 72 10/11/24 07:35 Resp 15 10/11/24 04:00 BP 117/80 10/11/24 07:35 Pulse Ox 96 10/11/24 07:35 O2 Del Method Room Air 10/11/24 07:35 10/10/24 10/11/24 10/11/24 22:59 06:59 14:59 Intake Total 1000 / 1000 1000 / 2000 360 / 360 Balance 1000 / 1000 1000 / 2000 360 / 360 Weight last 48 hrs Weight 167 lb 4.8 oz Weight 163 lb Weight 163 lb Physical Exam 2 Urinary Catheter Management: Drew: Cath Placed During This Visit: yes, but has since been removed by the nurse Reason for Continuing Indwelling Catheter: Decision to DC Catheter Urinary Catheter Date of Insertion: 10/10/24 Urinary Catheter Time of Insertion: 22:43 Date Urinary Catheter Removed: 10/10/24 Time Urinary Catheter Discontinued: 23:32 Data 10/10/24 18:01 10/10/24 18:01 A&P PDMP PDMP Reviewed: Not Reviewed Coding Level of Care Code Acute Code for Chg Daniel
[2024-10-11] MEDS: oxyCODONE-APAP 5-325 mg Tablet 1 TAB PO ×2 (09:12→18:33)
--- NOTE | 2024-10-11 10:17 | PM.CONSULT ---
Providers/Reason For Consult Consulting Physician/Specialty*: ER Reason for Consult*: Nondisplaced pubic rami fracture Attending Physician: Kitty Becerra MD Primary Care Provider: LEEANN Grove History of Present Illness History of Present Illness Mark Rodriguez is a 64 year old male was on his tractor sustained injury and subsequently had a nondisplaced pubic rami fracture. Has pain with weightbearing. 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) and other (chronic myalgias - due to Behcet's disease) Skin/Breast: Reports: new lesions Neuro: Denies: headache(s) or dizziness Psych: Denies: anxiety, depression, suicidal ideation or homicidal ideation Endo: Denies: cold intolerance or heat intolerance Russel/Lymph: Reports: easy bruising; Denies: easy bleeding All/Imm: Denies: food intolerance Medications/Allergies Home Medications ?Medication ?Instructions ?Recorded ?Confirmed ?Last Taken ?Type acetaminophen 500 mg tablet 500 - 1,000 mg PO Q4H PRN Pain 06/10/19 10/10/24 02/17/24 History (Tylenol Extra Strength) cetirizine 10 mg tablet 10 mg PO DAILY PRN ALLERGIES 07/03/23 10/10/24 02/20/24 History cholecalciferol (vitamin D3) 25 25 mcg PO DAILY 07/03/23 10/10/24 08/26/24 History mcg (1,000 unit) capsule montelukast 10 mg tablet 10 mg PO DAILY 07/03/23 10/10/24 08/26/24 History (Singulair) mupirocin 2 % topical ointment 1 applic topical BID PRN Skin 12/27/23 10/10/24 2 Weeks Ago History Irritation ~02/07/24 tacrolimus 0.1 % topical ointment 1 applic topical BID PRN Skin 12/27/23 10/10/24 02/20/24 History Irritation triamcinolone acetonide 0.1 % 1 applic topical BID PRN red itchy 12/27/23 10/10/24 3 Weeks Ago History topical ointment rash on body ~01/31/24 apremilast 30 mg tablet (Otezla) 30 mg PO BID #60 tabs 08/04/24 10/10/24 08/26/24 Rx clobetasol 0.05 % topical ointment See Rx Instructions .Route .COMPLEX 08/27/24 10/10/24 Unknown History diphenhydramine HCl 25 mg capsule 25 mg PO TID PRN Itching 08/27/24 10/10/24 Unknown History (Benadryl) pantoprazole 40 mg tablet,delayed 40 mg PO QAM 08/27/24 10/10/24 08/26/24 History release indomethacin 50 mg capsule 50 mg PO TID PRN pain (scale score 10/08/24 10/10/24 Unknown Rx 7-10) #90 caps prednisone 10 mg tablet 10 mg PO DAILY #90 tabs 10/08/24 10/10/24 Unknown Rx pregabalin 100 mg capsule (Lyrica) 200 mg (2 x 100 mg) PO BID 10/08/24 10/10/24 Unknown Rx FIBROMYALGIA 90 days #360 caps Allergies Allergy/AdvReac Type Severity Reaction Status Date / Time Sulfa (Sulfonamide Allergy Unknown Unknown Verified 10/10/24 15:27 Antibiotics) hydrocodone Allergy ALGY-Rash Verified 10/10/24 15:27 Penicillins Allergy ALGY-Hives Verified 10/10/24 15:27 methotrexate AdvReac Severe severe Verified 10/10/24 15:27 decrease WBC's levofloxacin AdvReac Intermediate rash Verified 10/10/24 15:27 Current Medications Generic Name Dose Route Start Last Admin Trade Name Freq PRN Reason Stop Dose Admin Acetaminophen 650 mg 10/11/24 00:06 10/11/24 00:44 Acetaminophen 325 Mg Tablet PO 650 mg Q6H PRN Administration Mild/Mod Pain Or Temp >/= 101 Cefepime HCl 2,000 mg 10/10/24 21:45 10/11/24 05:23 Cefepime 2,000 Mg Sdv IVP 2,000 mg Q8H SHANNAN Administration Protocol Cetirizine HCl 10 mg 10/11/24 09:00 10/11/24 08:36 Cetirizine 10 Mg Tablet PO 10 mg DAILY SHANNAN Administration Sodium Chloride 1,000 mls @ 100 mls/hr 10/11/24 03:00 10/11/24 03:44 Sodium Chloride 0.9% IV 100 mls/hr .Q10H SHANNAN Administration Ketorolac Tromethamine 15 mg 10/11/24 00:06 10/11/24 00:45 Ketorolac 30 Mg/Ml Inj IVP 10/16/24 00:05 15 mg Q6H PRN Administration MODERATE PAIN Oxycodone/Acetaminophen 1 tab 10/11/24 00:04 10/11/24 09:12 Oxycodone-Apap 5-325 Mg Tablet PO 1 tab Q4H PRN Administration moderate pain Pantoprazole Sodium 40 mg 10/11/24 06:00 10/11/24 05:[address] 40 Mg Tablet PO 40 mg QAM SHANNAN Administration Pregabalin 200 mg 10/11/24 01:09 10/11/24 08:36 Pregabalin 100 Mg Capsule PO 200 mg BID SHANNAN Administration PFSH Acute PFSH: Medical History Allergies Rash Immunization counseling High risk medication use Oral ulceration Male genital ulcer Behcet's disease Inflammatory arthritis History of chronic hypertension Surgical History History of appendectomy History of tonsillectomy Family History Father Stroke Hypertension Mother Hypertension Denies family history of Lupus (systemic lupus erythematosus) Rheumatoid arthritis Polycystic kidney disease Heart disease Hyperlipidemia Family history of premature coronary artery disease Cancer Social History Smoking and tobacco/nicotine status: former use of tobacco/nicotine Quit status (tobacco/nicotine): has quit using Year quit tobacco: 1985 Former quit date comment: used to chew tobacco Alcohol intake: never Substance/Drug Use: never Vitals/I&O/Wt Last Vital Signs Temp 97.4 F L 10/11/24 07:35 Pulse 72 10/11/24 07:35 Resp 18 10/11/24 09:12 BP 117/80 10/11/24 07:35 Pulse Ox 96 10/11/24 07:35 O2 Del Method Room Air 10/11/24 07:35 10/10/24 10/11/24 10/11/24 22:59 06:59 14:59 Intake Total 1000 / 1000 1000 / 2000 360 / 360 Balance 1000 / 1000 1000 / 2000 360 / 360 Weight last 48 hrs Weight 167 lb 4.8 oz Weight 163 lb Weight 163 lb Physical Exam Narrative: Alert and oriented x 3 Head is normocephalic atraumatic Respirations are intact No evidence of any rashes or infection 5/5 strength in bilateral upper and lower extremities Sensation intact in all extremities Urinary Catheter Management: Drew: Cath Placed During This Visit: yes, but has since been removed by the nurse Reason for Continuing Indwelling Catheter: Decision to DC Catheter Urinary Catheter Date of Insertion: 10/10/24 Urinary Catheter Time of Insertion: 22:43 Date Urinary Catheter Removed: 10/10/24 Time Urinary Catheter Discontinued: 23:32 Data 10/10/24 18:01 10/10/24 18:01 A&P Assessment and plan (1) Pubic bone fracture: Weight-bear as tolerated Follow-up with orthopedics in 2 weeks. PDMP PDMP Reviewed: Not Reviewed Consult Attestations Medical Necessity Statement: Per primary service Coding Level of Care Code Acute Code for [facility] Fwd Diagnoses Pubic bone fracture S32.501A Encounter type: initial encounter Fracture type: closed Laterality: right Sublocation of pubis: unspecified portion of pubis
[2024-10-11] MEDS: predniSONE 10 mg Tablet PO (10:26)
--- NOTE | 2024-10-11 10:45 | PC.NURSE ---
Pt able to void 150ml of yellow urine. No blood noted.
[2024-10-11 11:04] LABS: Estmated Average Glucose 91; Hemoglobin A1C 4.8 % (4.0-6.0)
[2024-10-11 11:31] LABS: Alanine Aminotransferase < 5 U/L (0-41); Albumin Level 2.9 g/dL (3.5-5.2); Alkaline Phosphatase 56 U/L (40-130); Anion Gap 14.9 (5-19); Aspartate Amino Transferase 6 U/L (0-40); Blood Urea Nitrogen 18 mg/dL (8-23); Calcium 7.6 mg/dL (8.5-10.5); Carbon Dioxide 21 mmol/L (22-29); Chloride 107 mmol/L (98-107); Creatinine Clr Calc Pharmacy 76.6369; Globulin 2.4 g/dL (1.3-4.6); Glomerular Filtration Rate 85.2 mL/min (90-130); Glucose 124 mg/dL (65-115); Iron 35 ug/dL (59-158); Osmolality Calculated 291 mOsm/kg (285-295); Percent Saturation 20.8 % (20-50); Potassium 3.9 mmol/L (3.5-5.1); Sodium 139 mmol/L (136-145); Thyroid Stimulating Hormone 0.35 uIU/mL (0.27-4.20); Total Bilirubin 0.4 mg/dL (0.15-1.2); Total Iron Binding Capacity 168 mcg/dl; Total Protein 5.3 g/dL (6.6-8.7); Unsaturated Iron Binding 133 ug/dL (112-347)
[2024-10-11 11:43] LABS: Vitamin B12 > 2000 pg/mL (232-1245)
--- NOTE | 2024-10-11 11:52 | PC.NURSE ---
Dr. Becerra notified that pt was able to void 150 ml of yellow urine. Updated on PT eval of pt.
[2024-10-11 15:12] LABS: Basophils % 0.2 %; Eosinophils # 1.4 10^3/uL (0.0-0.8); Eosinophils % 23.5 %; Hematocrit 34.1 % (37-53); Lymphocytes # 1.3 10^3/uL (0.8-4.8); Lymphocytes % 21.6 %; Mean Corpuscular HGB Conc 30.2 g/dL (30-55); Mean Corpuscular Hemoglobin 29.8 pg (27-33); Mean Corpuscular Volume 98.6 fl (82-101); Mean Platelet Volume 9.2 fL (7.4-10.4); Monocytes # 0.2 10^3/uL (0.2-0.9); Monocytes % 3.8 %; Neutrophils # 2.75 10^3/uL (1.8-7.7); Neutrophils % 47.1 %; Nucleated Red Blood Cells % 0 %; Platelet Count 235 10^3/cmm (157-399); Red Blood Count 3.46 10^6/uL (3.85-5.65); Red Cell Distribution Width 14.5 % (12.1-15.1); White Blood Count 5.83 10^3/uL (3.29-11.43)
[2024-10-11] MEDS: OTEZLA 30 MG 1 EACH PO (17:02)
[2024-10-11] MEDS: montelukast sodium 10 mg Tablet PO (17:02)
[2024-10-11] MEDS: enoxaparin 30 mg/0.3 mL Syringe SUBCUT (17:03)
[2024-10-11] MEDS: TRAMadol 50 mg Tablet 100 MG PO (19:46)
[2024-10-12 00:21] VITALS: BP 119/73; PULSE 82; RESP 16; TEMP 36.9; O2SAT 95
[2024-10-12] MEDS: enoxaparin 30 mg/0.3 mL Syringe SUBCUT ×2 (03:58→17:20)
[2024-10-12 05:07] VITALS: BP 99/62; PULSE 77; RESP 15; TEMP 36.6
[2024-10-12] MEDS: pantoprazole DR 40 mg Tablet PO (06:08)
[2024-10-12 06:42] LABS: Basophils % 0.5 %; Eosinophils # 2.2 10^3/uL (0.0-0.8); Eosinophils % 33.4 %; Hematocrit 32.5 % (37-53); Lymphocytes # 1.6 10^3/uL (0.8-4.8); Lymphocytes % 24.1 %; Mean Corpuscular HGB Conc 30.8 g/dL (30-55); Mean Corpuscular Volume 97.6 fl (82-101); Mean Platelet Volume 9.2 fL (7.4-10.4); Monocytes # 0.3 10^3/uL (0.2-0.9); Neutrophils # 2.12 10^3/uL (1.8-7.7); Neutrophils % 32.4 %; Nucleated Red Blood Cells % 0 %; Platelet Count 219 10^3/cmm (157-399); Red Blood Count 3.33 10^6/uL (3.85-5.65); Red Cell Distribution Width 14.6 % (12.1-15.1); White Blood Count 6.55 10^3/uL (3.29-11.43)
[2024-10-12 07:14] LABS: Chol HDL Ratio 2.55 mg/dL (1.0-5.00); Cholesterol 125 mg/dL (0-200); HDL Cholesterol 49 mg/dL (60-100); LDL Cholesterol Calculated 60 mg/dL (50-129); Triglycerides 82 mg/dL (0-150); VLDL Cholestrol Calculation 16 mg/dL (0-30)
[2024-10-12 07:26] LABS: Folate Level 3.8 ng/mL (4.5-32.2)
[2024-10-12 08:04] VITALS: BP 124/77; PULSE 71; RESP 18; TEMP 36.4; O2SAT 98
[2024-10-12] MEDS: predniSONE 10 mg Tablet PO (09:55)
[2024-10-12] MEDS: cetirizine 10 mg Tablet PO (09:55)
[2024-10-12] MEDS: pregabalin 100 mg Capsule 200 MG PO (09:57)
[2024-10-12] MEDS: OTEZLA 30 MG 1 EACH PO ×2 (09:57→17:21)
--- NOTE | 2024-10-12 10:01 | P.PN_ITS ---
Subjective 2 Subjective: No acute vents overnight. Patient seen sitting comfortably in chair. Seen with family at bedside. Complaining of pain. States not able to move his legs much. Vitals/I&O/Wt Last Vital Signs Temp 97.6 F 10/12/24 08:04 Pulse 71 10/12/24 08:04 Resp 18 10/12/24 08:04 BP 124/77 10/12/24 08:04 Pulse Ox 98 10/12/24 08:04 O2 Del Method Room Air 10/12/24 08:04 10/11/24 10/12/24 10/12/24 22:59 06:59 14:59 Intake Total 120 / 1600 240 / 1840 600 / 600 Balance 120 / 1150 240 / 1390 600 / 600 Weight last 48 hrs Weight 75.75 kg Weight 75.886 kg Weight 73.936 kg Weight 73.936 kg Physical Exam 2 Const: COMMON NORMALS: average body habitus, patient oriented x3, no limitations, healthy appearing, alert and well nourished GENERAL APPEARANCE: cooperative ORIENTATION/CONSCIOUSNESS: Yes awake, Yes oriented to person, Yes oriented to place and Yes oriented to time HENMT: COMMON NORMALS: normocephalic, atraumatic, external ears normal and Normal external nose present HEAD & SCALP: normocephalic and atraumatic N OSE: Normal external nose present EXTERNAL EAR: Yes external ears normal M OUTH: Normal oral and palatal mucosa present THROAT: posterior oropharynx normal OTHER: behcet lesions on lips Eye: COMMON NORMALS: Equal, round and reactive pupils present and conjunctivae normal CONJUNCTIVA: Yes conjunctivae normal PUPIL: Yes Equal, round and reactive pupils present EOM: No EOM abnormal Neck/C-Spine: COMMON NORMALS: Thyroid normal THYROID: Thyroid normal C AROTIDS: No bruit CERVICAL SPINE: Yes cervical ROM normal Lymph: OTHER: No cervical or supraclavicular LAD Resp: OTHER: CTAB no w/r/r Cardio: OTHER: RRR, no m/r/g. 2+ radial and DP pulses bilaterally. No carotid bruits b/l GI: OTHER: BS+, Tenderness to palpation in the RLQ. No guarding, rigidity, rebound tenderness, or hepatosplenomegaly Extremity: NARRATIVE EXTREMITY EXAM: Mild R. LE swelling and tenderness, but no erythema. No cyanosis or edema. Neuro: COMMON NORMALS: patient oriented x3 SENSORIUM/ORIENTATION: Yes alert, Yes oriented to person, Yes oriented to place and Yes oriented to time CRANIAL NERVES: Yes CN normal except as noted SENSORY EXAM: No sensory level loss detected MOTOR EXAM: 5/5 motor strength present throughout and Normal motor muscle tone present throughout Psych: COMMON NORMALS: Normal thought process present and speech normal A PPEARANCE: Yes grossly normal ATTITUDE: Yes calm and Yes engaged A CTIVITY/MOTOR BEHAVIOR: Yes appropriate eye contact SPEECH: Yes normal speech MOOD & AFFECT: Yes euthymic mood THOUGHT PROCESS: Normal thought process present THOUGHT CONTENT: Yes Normal thought content present A TTENTION/CONCENTRATION: Yes attention grossly intact MEMORY/COGNITION: Yes memory grossly intact Skin: NARRATIVE SKIN EXAM: erythema in the b/l thighs and appearance of what seems like early formation of blisters. Skin abrasion and tear in L. inner thigh close to the knee. Mild abrasion on R. anterior mid-tibia. Wound on the dorsal aspect of the L. 3rd digit of the PIP joint. Urinary Catheter Management: Drew: Cath Placed During This Visit: yes, but has since been removed by the nurse Reason for Continuing Indwelling Catheter: Decision to DC Catheter Urinary Catheter Date of Insertion: 10/10/24 Urinary Catheter Time of Insertion: 22:43 Date Urinary Catheter Removed: 10/10/24 Time Urinary Catheter Discontinued: 23:32 Data 10/12/24 05:51 10/11/24 10:37 A&P Assessment and plan (1) Closed fracture of superior pubic ramus: (2) Closed fracture of inferior pubic ramus: (3) Pubic bone fracture: (4) Accident caused by farm tractor: Plan Mark Rodriguez is a 64 yo w/ Behcet's Disease and allergic rhinitis who presented to the ED on 10/10/2024 after he got caught in the Power Take Off (PTO) on his tractor and sustained injuries. #Tractor Accident #Acute nondisplaced fracture of the R. Pubic bone #Acute nondisplaced fracture of the R.superior and Inferior Rami - Management per primary - CT Cystography is negative for transmural bladder injury. - ordered Percocet for Pain control #Skin abrasions and tears - due to tractor accident - Ordered cefepime given that he is immunocompromised and is at risk for infection #Dehydration: s/p 1L NS in the ED - Ordered another 1L at 250cc/hr and continuous NS at 100cc/hr afterwards #Behcet's Disease: Had Infliximab (Remicade) infusion this week. - Resumed Prednisone. Resumed Pantoprazole ordered for chronic prednisone use. Resumed Pregabalin - - On Apremilast (Otezla) - not carried on formulary at this time #Allergy Rhinitis: Year round - Resumed home meds. DVT ppx: defer to primary. Plan for the day: Hemoglobin has remained stable. Patient is able to pass urine. Check CMP. Appreciate A1c, lipid panel, vitamin B12 and folate levels. Concern for folic acid deficiency. Add folic acid 1 g twice daily. Patient would benefit with physical therapy as an outpatient. Home health. Medicine will sign off. Please call back with any questions. Patient should see PCP in 1 week. PDMP PDMP Reviewed: Not Reviewed Attestations 2 Medical Necessity Statement*: As per primary team. Diagnoses Closed fracture of superior pubic ramus S32.511A Encounter type: initial encounter Laterality: right Closed fracture of inferior pubic ramus S32.591A Encounter type: initial encounter Laterality: right Pubic bone fracture S32.501A Encounter type: initial encounter Fracture type: closed Laterality: right Sublocation of pubis: unspecified portion of pubis Accident caused by farm tractor, initial encounter W30.9XXA Encounter type: initial encounter
[2024-10-12] MEDS: ketorolac 30 mg/mL INJ 15 MG IVP (10:06)
[2024-10-12] MEDS: acetaminophen 325 mg Tablet 650 MG PO (10:06)
[2024-10-12 11:50] VITALS: BP 124/78; PULSE 80; RESP 17; TEMP 36.6; O2SAT 97
--- NOTE | 2024-10-12 11:54 | P.PN_ITS ---
Subjective 2 Subjective: The patient was seen and evaluated at bedside this morning. Yesterday morning, the patient had been unable to void, bladder scan revealed about 500 cc of urine in the bladder. I instructed the nurse to straight cath the patient. This was successful and after waiting several hours the patient was able to void approximately 150 cc on his own. He has been voiding without difficulty ever since that time. Yesterday afternoon, he complained of some new lower back muscular pain, however he associated this with increased activity. He has been getting up to the side of the bed and walking with the assistance of a walker. This morning, he has no major complaints. He is tolerating a regular diet. He has had some difficulty getting his pain under control. He stated that the IV morphine wears off quickly. Vitals/I&O/Wt Last Vital Signs Temp 97.9 F 10/12/24 11:50 Pulse 80 10/12/24 11:50 Resp 17 10/12/24 11:50 BP 124/78 10/12/24 11:50 Pulse Ox 97 10/12/24 11:50 O2 Del Method Room Air 10/12/24 11:50 10/11/24 10/12/24 10/12/24 22:59 06:59 14:59 Intake Total 120 / 1600 240 / 1840 600 / 600 Balance 120 / 1150 240 / 1390 600 / 600 Weight last 48 hrs Weight 167 lb Weight 167 lb 4.8 oz Weight 163 lb Weight 163 lb Physical Exam 2 Const: COMMON NORMALS: no acute distress, average body habitus, patient oriented x3 and well nourished HENMT: COMMON NORMALS: normocephalic, atraumatic and external ears normal H EAD & SCALP: normocephalic and atraumatic EXTERNAL EAR: Yes external ears normal Eye: COMMON NORMALS: EOMs intact bilaterally and conjunctivae normal C ONJUNCTIVA: Yes conjunctivae normal Neck/C-Spine: COMMON NORMALS: full ROM CERVICAL SPINE: Yes cervical ROM normal, No Cervical spine tenderness and No step off deformity Chest: COMMONS NORMALS: normal inspection of the chest Resp: COMMON NORMALS: normal respiratory effort, No retractions and No use of accessory muscles GI: COMMON NORMALS: Soft to palpation and non-tender PALPATION: Yes Soft to palpation : COMMON NORMALS: Yes no CVA tenderness and Yes no scrotal swelling B LADDER/KIDNEY EXAM: Yes no CVA tenderness Back/Pelvis: COMMON NORMALS: no CVA tenderness GENERAL BACK: No erythema and No ecchymosis THORACIC SPINE/UPPER BACK: Yes normal to inspection, No thoracic spinal tenderness and No paraspinal muscle tenderness LUMBAR SPINE/LOWER BACK: Yes normal to inspection, No lumbar spinal tenderness and No paraspinal muscle tenderness OTHER: Right lower extremity: Right thigh and buttock scattered moderately sized ecchymosis. Right thigh and knee scattered superficial abrasions. Left lower extremity: Left thigh and buttock scattered smaller sized ecchymosis. Left thigh and needs scattered superficial abrasions. Bilateral lower extremity edema. Dorsalis pedis pulses palpable digitally bilaterally. Neuro: COMMON NORMALS: patient oriented x3, CN's II-XII intact bilaterally ((Movement of the right lower extremity somewhat limited due to pelvic pain)) and moves all extremities Psych: COMMON NORMALS: mental status grossly normal Skin: OTHER: As noted above, multiple scattered abrasions and ecchymosis of the bilateral thighs. Multiple chronic erythematous lesions consistent with his chronic Behcet's disease. Urinary Catheter Management: Drew: Cath Placed During This Visit: yes, but has since been removed by the nurse Reason for Continuing Indwelling Catheter: Decision to DC Catheter Urinary Catheter Date of Insertion: 10/10/24 Urinary Catheter Time of Insertion: 22:43 Date Urinary Catheter Removed: 10/10/24 Time Urinary Catheter Discontinued: 23:32 Data 10/12/24 05:51 10/11/24 10:37 A&P Assessment and plan (1) Accident caused by farm tractor: -- Tertiary survey no acute or new findings other than bilateral lower extremity edema -- Hemodynamically normal and lab work unremarkable, other than slightly downtrending hemoglobin. -- Other than pain control, the patient is stable for discharge to home. PT recommends discharge to home with walker and home exercise recommendations have been made. -- I discontinued the IV pain medications, scheduled p.o. Tylenol, and kept the as needed tramadol. If we can get his pain controlled with oral pain medications only he can possibly be discharged this afternoon. -- Regular diet Questionable bladder findings found on initial CT, CT cystography is negative for transmural bladder injury. Monitor for urinary incontinence, urinary retention, or hematuria. Urinary retention seen yesterday morning has resolved. -- Imaging demonstrates improvement in pelvic hematoma and obturator hematoma -- Trend hemoglobin/hematocrit and hemodynamics -- Trauma dosing DVT prophylaxis started yesterday. -- Consult to orthopedic surgeon for pubic bone fractures: Weight-bear as tolerated Follow-up with orthopedics in 2 weeks. (2) Pubic bone fracture: (3) Closed fracture of superior pubic ramus: (4) Closed fracture of inferior pubic ramus: (5) Hematoma: (6) Pelvic hematoma: (7) Abrasion, multiple sites: -- Local wound care (8) Multiple fractures: (9) Cutaneous abscess of right knee: (10) Behcet's disease: -- Medical management per hospitalist -- Okay to start home med of Otezla (nonformulary) PDMP PDMP Reviewed: Not Reviewed Attestations 2 Medical Necessity Statement*: Still requiring IV pain medications for pain control. Coding Level of Care Code Acute Code for [facility] Fwd Diagnoses Accident caused by farm tractor, initial encounter W30.9XXA Encounter type: initial encounter Pubic bone fracture S32.501A Encounter type: initial encounter Fracture type: closed Laterality: right Sublocation of pubis: unspecified portion of pubis Closed fracture of superior pubic ramus S32.511A Encounter type: initial encounter Laterality: right Closed fracture of inferior pubic ramus S32.591A Encounter type: initial encounter Laterality: right Hematoma T14.8XXA Pelvic hematoma Abrasion, multiple sites T07.XXXA Multiple fractures T07.XXXA Cutaneous abscess of right knee L02.415 Behcet's disease M35.2
[2024-10-12] MEDS: acetaminophen 500 mg Tablet 1000 MG PO ×2 (13:09→17:20)
[2024-10-12] MEDS: TRAMadol 50 mg Tablet 100 MG PO ×2 (13:09→17:19)
[2024-10-12 17:15] VITALS: BP 113/68; PULSE 73; RESP 18; TEMP 36.7; O2SAT 97
[2024-10-12] MEDS: montelukast sodium 10 mg Tablet PO (17:20)
[2024-10-12 20:00] VITALS: BP 113/67; PULSE 73; RESP 17; TEMP 36.7; O2SAT 97
[2024-10-13] VITALS: BP 113/70; PULSE 71; RESP 16; TEMP 36.9; O2SAT 97
[2024-10-13 03:56] LABS: Basophils % 0.5 %; Eosinophils # 1.5 10^3/uL (0.0-0.8); Eosinophils % 27.2 %; Hematocrit 31.8 % (37-53); Lymphocytes # 1.5 10^3/uL (0.8-4.8); Lymphocytes % 26.6 %; Mean Corpuscular HGB Conc 30.5 g/dL (30-55); Mean Corpuscular Hemoglobin 29.7 pg (27-33); Mean Corpuscular Volume 97.2 fl (82-101); Monocytes # 0.3 10^3/uL (0.2-0.9); Monocytes % 5.4 %; Neutrophils # 2.01 10^3/uL (1.8-7.7); Neutrophils % 36.2 %; Nucleated Red Blood Cells % 0 %; Platelet Count 213 10^3/cmm (157-399); Red Blood Count 3.27 10^6/uL (3.85-5.65); Red Cell Distribution Width 14.5 % (12.1-15.1); White Blood Count 5.56 10^3/uL (3.29-11.43)
[2024-10-13 04:00] VITALS: BP 108/65; PULSE 72; RESP 16; TEMP 36.6; O2SAT 95
[2024-10-13] MEDS: enoxaparin 30 mg/0.3 mL Syringe SUBCUT ×2 (04:41→04:44)
[2024-10-13] MEDS: TRAMadol 50 mg Tablet 100 MG PO ×2 (04:44→12:26)
[2024-10-13] MEDS: acetaminophen 500 mg Tablet 1000 MG PO ×2 (04:44→12:27)
[2024-10-13 05:04] LABS: Slide Review Slide Review Perform
[2024-10-13] MEDS: pantoprazole DR 40 mg Tablet PO (06:02)
[2024-10-13 07:57] VITALS: BP 114/72; PULSE 76; RESP 16; TEMP 36.5; O2SAT 98
[2024-10-13] MEDS: OTEZLA 30 MG 1 EACH PO (08:13)
[2024-10-13] MEDS: predniSONE 10 mg Tablet PO (08:13)
[2024-10-13] MEDS: cetirizine 10 mg Tablet PO (08:13)
--- NOTE | 2024-10-13 09:35 | P.PN_ITS ---
Subjective 2 Subjective: Feeling better Voiding Able to ambulate Vitals/I&O/Wt Last Vital Signs Temp 97.7 F 10/13/24 07:57 Pulse 76 10/13/24 07:57 Resp 16 10/13/24 07:57 BP 114/72 10/13/24 07:57 Pulse Ox 98 10/13/24 07:57 O2 Del Method Room Air 10/13/24 07:57 10/12/24 10/13/24 10/13/24 22:59 06:59 14:59 Intake Total 360 / 1440 480 / 480 Output Total 1200 / 1200 250 / 1450 Balance -840 / 240 -250 / -10 480 / 480 Weight last 48 hrs Weight 168 lb Weight 167 lb Physical Exam 2 Narrative: Chest: Unlabored breathing room air. No lymphadenopathy. Heart: Regular rate and rhythm. Abdomen: Soft, nontender, nondistended. No masses or lymphadenopathy. Urinary Catheter Management: Drew: Cath Placed During This Visit: yes, but has since been removed by the nurse Reason for Continuing Indwelling Catheter: Decision to DC Catheter Urinary Catheter Date of Insertion: 10/10/24 Urinary Catheter Time of Insertion: 22:43 Date Urinary Catheter Removed: 10/10/24 Time Urinary Catheter Discontinued: 23:32 Data 10/13/24 02:17 10/11/24 10:37 A&P Assessment and plan (1) Pubic bone fracture: Plan 64-year-old male admitted as a trauma with a nonoperative pelvic fracture. Will follow-up with orthopedic surgery. Weightbearing as able. Cleared for discharge. PDMP PDMP Reviewed: Last Reviewed 10/13/24 15:51 EDT by Geovany Souza MD Attestations 2 Medical Necessity Statement*: IV fluids, IV pain meds, orthopedic surgery evaluation. Coding Level of Care Code 46856 Diagnoses Pubic bone fracture S32.501A Encounter type: initial encounter Fracture type: closed Laterality: right Sublocation of pubis: unspecified portion of pubis
--- NOTE | 2024-10-13 10:42 | PC.NURSE ---
DISCHARGE DELAY D/T WAITING ON DR. COOK TO ROUND
[2024-10-13 11:06] VITALS: BP 100/63; PULSE 71; RESP 16; TEMP 36.5; O2SAT 97
--- NOTE | 2024-10-13 11:12 | P.DS_ITS ---
Discharge Providers Date of Admission: 10/10/24 22:18 Date of Discharge: October 13, 2024 Attending Provider at Admission: Kitty Becerra MD Attending Provider at Discharge: Kitty Becerra MD Primary Care Provider: LEEANN Grove Diagnoses at Discharge Discharge Diagnosis (1) Accident caused by farm tractor: Status: Resolved Qualifiers: Encounter type: initial encounter Qualified Code(s): W30.9XXA - Contact with unspecified agricultural machinery, initial encounter (2) Pubic bone fracture: Status: Acute Qualifiers: Encounter type: initial encounter Fracture type: closed Laterality: right Sublocation of pubis: unspecified portion of pubis Qualified Code(s): S32.501A - Unspecified fracture of right pubis, initial encounter for closed fracture (3) Closed fracture of superior pubic ramus: Status: Acute Qualifiers: Encounter type: initial encounter Laterality: right Qualified Code(s): S32.511A - Fracture of superior rim of right pubis, initial encounter for closed fracture (4) Closed fracture of inferior pubic ramus: Status: Acute Qualifiers: Encounter type: initial encounter Laterality: right Qualified Code(s): S32.591A - Other specified fracture of right pubis, initial encounter for closed fracture (5) Hematoma: Status: Resolved (6) Pelvic hematoma: Status: Resolved (7) Abrasion, multiple sites: Status: Resolved (8) Multiple fractures: Status: Acute (9) Cutaneous abscess of right knee: Status: Resolved Reason for Visit Reason for Visit: multi lac both legs Hospital Course Hospital Course 64-year-old male admitted to trauma with a nonoperative pelvic fracture. Evaluated by orthopedic surgery who recommended pain control and weightbearing as able. Will follow-up with orthopedic surgery. No follow-up needed with general surgery. Physical Exam Narrative: Chest: Unlabored breathing room air. No lymphadenopathy. Heart: Regular rate and rhythm. Abdomen: Soft, nontender, nondistended. No masses or lymphadenopathy. Urinary Catheter Management: Drew: Cath Placed During This Visit: yes, but has since been removed by the nurse Reason for Continuing Indwelling Catheter: Decision to DC Catheter Urinary Catheter Date of Insertion: 10/10/24 Urinary Catheter Time of Insertion: 22:43 Date Urinary Catheter Removed: 10/10/24 Time Urinary Catheter Discontinued: 23:32 Discharge Data Studies Completed and Pending Completed Studies During Hospitalization Category Date Time Status CT abdomen pelvis w con* [id number] Stat Cat Scan 10/10/24 18:[address] hip RT wo con* [id number] Stat Cat Scan 10/10/24 18:[address] pelvis wo con [id number] Stat Cat Scan 10/10/24 22:27 Completed XR knee RT 3V* [id number] Stat Exams 10/10/24 18:46 [place] [id number] Routine Ultrasound 10/13/24 18:44 Completed Pending at discharge Category Date Time Status Complete Blood Count w/Auto AM LABS Lab 10/14/24 04:00 Ordered MAG [Magnesium] AM LABS Lab 10/14/24 04:00 Ordered Radiology Impressions Hip CT 10/10/24 18:46 IMPRESSION: 1. Acute nondisplaced fracture of the right pubic bone and superior and inferior rami. 2. [id number] sheet-like pelvic sidewall hematoma and edematous enlargement of the right obturator muscles. Knee X-Ray 10/10/24 18:46 IMPRESSION: No acute fracture identified. Mild degenerative arthrosis. Abdomen/Pelvis CT 10/10/24 18:47 IMPRESSION: 1. Acute nondisplaced fracture of the right pubic bone and rami. Moderate contusive enlargement of the obturator muscles and mild -moderate adjacent sheet- like pelvic sidewall hematoma. 2. Subtle wall thickening in the base and right lateral urinary bladder wall . CT cystography may be considered to evaluate the integrity of the bladder wall , although no urinary extravasation is demonstrated to strongly suggestive disruption. 3. Additional degenerative and incidental findings detailed above. COMMENTS: Consistent with the [employer]'s Incidental Findings Committee white paper (J Am Adonis Radiol 2018): Any incidental renal lesion less than 1 cm or classified as too small to characterize, or any incidental cystic renal lesion characterized as simple-appearing, is likely benign. No follow-up imaging is recommended for these lesions per consensus recommendations based on imaging criteria. Pelvis CT 10/10/24 22:27 IMPRESSION: 1. No contrast extravasation to indicate transmural bladder injury . 2. Previous right anterior lower pelvic sidewall hematoma has decreased from the study earlier the same day due to redistribution. No progressive hematoma. 3. Known nondisplaced acute fractures of the right pubic bone and rami . Laboratory Results WBC 5.56 10^3/uL (3.29-11.43) 10/13/24 02:17 RBC 3.27 10^6/uL (3.85-5.65) L 10/13/24 02:17 Hgb 9.70 g/dL (11.27-16.99) L 10/13/24 02:17 Hct 31.8 % (37-53) L 10/13/24 02:17 MCV 97.2 fl (82-101) 10/13/24 02:17 MCH 29.7 pg (27-33) 10/13/24 02:17 MCHC 30.5 g/dL (30-55) 10/13/24 02:17 RDW 14.5 % (12.1-15.1) 10/13/24 02:17 Plt Count 213 10^3/cmm (157-399) 10/13/24 02:17 MPV 9.0 fL (7.4-10.4) 10/13/24 02:17 Neut % (Auto) 36.2 % 10/13/24 02:17 Lymph % (Auto) 26.6 % 10/13/24 02:17 [place] % (Auto) 5.4 % 10/13/24 02:17 Eos % (Auto) 27.2 % 10/13/24 02:17 Baso % (Auto) 0.5 % 10/13/24 02:17 Neut # (Auto) 2.01 10^3/uL (1.8-7.7) 10/13/24 02:17 Lymph # (Auto) 1.5 10^3/uL (0.8-4.8) 10/13/24 02:17 [place] # (Auto) 0.3 10^3/uL (0.2-0.9) 10/13/24 02:17 Eos # (Auto) 1.5 10^3/uL (0.0-0.8) H 10/13/24 02:17 Baso # (Auto) 0.0 10^3/uL (0.0-0.1) 10/13/24 02:17 Nucleated RBC % (auto) 0 % 10/13/24 02:17 Nucleated RBCs # 0.0 /100WBC 10/13/24 02:17 PT 14.80 SECONDS (12.1-14.9) 10/10/24 18:01 INR 1.09 (0.8-1.2) 10/10/24 18:01 Sodium 139 mmol/L (136-145) 10/11/24 10:37 Potassium 3.9 mmol/L (3.5-5.1) 10/11/24 10:37 Chloride 107 mmol/L (98-107) 10/11/24 10:37 Carbon Dioxide 21 mmol/L (22-29) L 10/11/24 10:37 Anion Gap 14.9 (5-19) 10/11/24 10:37 BUN 18 mg/dL (8-23) 10/11/24 10:37 Creatinine 0.9 mg/dL (0.7-1.2) 10/11/24 10:37 GFR Calculation 85.2 mL/min (90-130) L 10/11/24 10:37 Glucose 124 mg/dL (65-115) H 10/11/24 10:37 Estimat Average Glucose 91 10/11/24 10:37 Hemoglobin A1c 4.8 % (4.0-6.0) 10/11/24 10:37 Calculated Osmolality 291 mOsm/kg (285-295) 10/11/24 10:37 Calcium 7.6 mg/dL (8.5-10.5) L 10/11/24 10:37 Phosphorus 3.0 mg/dL (2.5-4.5) 10/10/24 18:01 Magnesium 2.0 mg/dL (1.7-2.3) 10/13/24 02:17 Iron 35 ug/dL (59-158) L 10/11/24 10:37 TIBC 168 mcg/dl 10/11/24 10:37 % Saturation 20.8 % (20-50) 10/11/24 10:37 Unsat Iron Binding 133 ug/dL (112-347) 10/11/24 10:37 Total Bilirubin 0.4 mg/dL (0.15-1.2) 10/11/24 10:37 AST 6 U/L (0-40) 10/11/24 10:37 ALT < 5 U/L (0-41) 10/11/24 10:37 Alkaline Phosphatase 56 U/L (40-130) 10/11/24 10:37 Creatine Kinase 18 U/L (39-308) L 10/10/24 18:01 Total Protein 5.3 g/dL (6.6-8.7) L 10/11/24 10:37 Albumin 2.9 g/dL (3.5-5.2) L 10/11/24 10:37 Globulin 2.4 g/dL (1.3-4.6) 10/11/24 10:37 Triglycerides 82 mg/dL (0-150) 10/12/24 05:51 Cholesterol 125 mg/dL (0-200) 10/12/24 05:51 LDL Cholesterol, Calc 60 mg/dL (50-129) 10/12/24 05:51 Total VLDL Cholesterol 16 mg/dL (0-30) 10/12/24 05:51 HDL Cholesterol 49 mg/dL (60-100) L 10/12/24 05:51 Cholesterol/HDL Ratio 2.55 mg/dL (1.0-5.00) 10/12/24 05:51 Vitamin B12 > 2000 pg/mL (232-1245) H 10/11/24 10:37 Folate 3.8 ng/mL (4.5-32.2) L 10/12/24 05:51 TSH 0.35 uIU/mL (0.27-4.20) 10/11/24 10:37 Vitals Last Vital Signs Temp 97.7 F 10/13/24 11:06 Pulse 71 10/13/24 11:06 Resp 16 10/13/24 11:06 BP 100/63 10/13/24 11:06 Pulse Ox 97 10/13/24 11:06 O2 Del Method Room Air 10/13/24 11:06 Discharge Plan Discharge Patient Disposition: Home Health Service Condition: Stable Prescriptions: New folic acid 1 mg tablet 1,000 mcg PO DAILY Qty: 30 0RF tramadol 50 mg tablet 50 mg PO BID 10 Days Qty: 20 0RF Continued montelukast [Singulair] 10 mg tablet 10 mg PO DAILY cetirizine 10 mg tablet 10 mg PO DAILY PRN (Reason: ALLERGIES) cholecalciferol (vitamin D3) 25 mcg (1,000 unit) capsule 25 mcg PO DAILY Otezla 30 mg tablet 30 mg PO BID Qty: 60 0RF indomethacin 50 mg capsule 50 mg PO TID PRN (Reason: pain (scale score 7-10)) Qty: 90 0RF Rx Instructions: administer with food or milk pregabalin [Lyrica] 100 mg capsule 200 mg PO BID 90 Days Qty: 360 1RF acetaminophen [Tylenol Extra Strength] 500 mg Tablet 500 - 1,000 mg PO Q4H PRN (Reason: Pain) tacrolimus 0.1 % ointment 1 applic TOPICAL BID PRN (Reason: Skin Irritation) triamcinolone acetonide 0.1 % Ointment 1 applic TOPICAL BID PRN (Reason: red itchy rash on body) mupirocin 2 % ointment 1 applic TOPICAL BID PRN (Reason: Skin Irritation) diphenhydramine HCl [Benadryl] 25 mg Capsule 25 mg PO TID PRN (Reason: Itching) clobetasol 0.05 % ointment See Rx Instructions .ROUTE .COMPLEX Rx Instructions: APPLY TO THE AFFECTED AREA(S) OF SKIN ON ARMS AND TRUNK TWICE DAILY FOR NO MORE THAN TWO WEEKS PER MONTH. pantoprazole 40 mg tablet,delayed release (DR/EC) 40 mg PO QAM No Action prednisone 10 mg tablet 10 mg PO DAILY Qty: 90 1RF Discharge Orders: Discharge Order (Routine); Ordered 10/13/24 Ordered By: Geovany Souza Other Ambulatory Orders: DME: Ravi (Order) Location: None Selected Ordered By: Kitty Becerra Referrals: [facility] [Outside] Frank Cade DO [Physician, Orthopedics] - 10/16/24 1:00 pm Marisela Blackmon FNP [Primary Care Provider, Nurse Practitioner] - 10/21/24 10:30 am Discharge Diet: Usual diet Patient Instructions: Folic Acid (By mouth), Tramadol (By mouth), Pelvic Fracture (GEN), Opioid Safety Activity Restrictions/Additional Instructions: Follow-up with orthopedics in 2 weeks Weight-bear as tolerated Discharge Attestations Time Spent in Discharge Care*: greater than 30 min Quality Metrics Clinical Quality Measures [ No reported AMI, CVA or VTE this stay] Coding Level of Care Code Acute Code for Chg Fwd Diagnoses Accident caused by farm tractor, initial encounter W30.9XXA Encounter type: initial encounter Pubic bone fracture S32.501A Encounter type: initial encounter Fracture type: closed Laterality: right Sublocation of pubis: unspecified portion of pubis Closed fracture of superior pubic ramus S32.511A Encounter type: initial encounter Laterality: right Closed fracture of inferior pubic ramus S32.591A Encounter type: initial encounter Laterality: right Hematoma T14.8XXA Pelvic hematoma Abrasion, multiple sites T07.XXXA Multiple fractures T07.XXXA Cutaneous abscess of right knee L02.415
--- NOTE | 2024-10-13 11:51 | PC.NURSE ---
Discharge delayed, waiting on discharge medications to be written. System keeps failing for Dr. Flores. Also waiting on walker to be delivered.
--- NOTE | 2024-10-13 12:06 | PM.DCS ---
Discharge Providers Date of Admission: 10/10/24 22:18 Date of Discharge: October 13, 2024 Attending Provider at Admission: Kitty Becerra MD Attending Provider at Discharge: Kitty Becerra MD Primary Care Provider: LEEANN Grove Diagnoses at Discharge Discharge Diagnosis (1) Accident caused by farm tractor: Status: Acute Qualifiers: Encounter type: initial encounter Qualified Code(s): W30.9XXA - Contact with unspecified agricultural machinery, initial encounter (2) Pubic bone fracture: Status: Acute Qualifiers: Encounter type: initial encounter Fracture type: closed Laterality: right Sublocation of pubis: unspecified portion of pubis Qualified Code(s): S32.501A - Unspecified fracture of right pubis, initial encounter for closed fracture (3) Closed fracture of superior pubic ramus: Status: Acute Qualifiers: Encounter type: initial encounter Laterality: right Qualified Code(s): S32.511A - Fracture of superior rim of right pubis, initial encounter for closed fracture (4) Closed fracture of inferior pubic ramus: Status: Acute Qualifiers: Encounter type: initial encounter Laterality: right Qualified Code(s): S32.591A - Other specified fracture of right pubis, initial encounter for closed fracture (5) Hematoma: Status: Acute (6) Pelvic hematoma: Status: Acute (7) Abrasion, multiple sites: Status: Acute (8) Multiple fractures: Status: Acute (9) Cutaneous abscess of right knee: Status: Acute (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 Reason for Visit Reason for Visit: multi lac both legs Physical Exam Urinary Catheter Management: Drew: Cath Placed During This Visit: yes, but has since been removed by the nurse Reason for Continuing Indwelling Catheter: Decision to DC Catheter Urinary Catheter Date of Insertion: 10/10/24 Urinary Catheter Time of Insertion: 22:43 Date Urinary Catheter Removed: 10/10/24 Time Urinary Catheter Discontinued: 23:32 Discharge Data Studies Completed and Pending Completed Studies During Hospitalization Category Date Time Status CT abdomen pelvis w con* [id number] Stat Cat Scan 10/10/24 18:[address] hip RT wo con* [id number] Stat Cat Scan 10/10/24 18:[address] pelvis wo con [id number] Stat Cat Scan 10/10/24 22:27 Completed XR knee RT 3V* [id number] Stat Exams 10/10/24 18:46 [place] [id number] Routine Ultrasound 10/13/24 18:44 Completed Pending at discharge Category Date Time Status Complete Blood Count w/Auto AM LABS Lab 10/14/24 04:00 Ordered MAG [Magnesium] AM LABS Lab 10/14/24 04:00 Ordered Radiology Impressions Hip CT 10/10/24 18:46 IMPRESSION: 1. Acute nondisplaced fracture of the right pubic bone and superior and inferior rami. 2. [id number] sheet-like pelvic sidewall hematoma and edematous enlargement of the right obturator muscles. Knee X-Ray 10/10/24 18:46 IMPRESSION: No acute fracture identified. Mild degenerative arthrosis. Abdomen/Pelvis CT 10/10/24 18:47 IMPRESSION: 1. Acute nondisplaced fracture of the right pubic bone and rami. Moderate contusive enlargement of the obturator muscles and mild -moderate adjacent sheet- like pelvic sidewall hematoma. 2. Subtle wall thickening in the base and right lateral urinary bladder wall . CT cystography may be considered to evaluate the integrity of the bladder wall , although no urinary extravasation is demonstrated to strongly suggestive disruption. 3. Additional degenerative and incidental findings detailed above. COMMENTS: Consistent with the [employer]'s Incidental Findings Committee white paper (J Am Adonis Radiol 2018): Any incidental renal lesion less than 1 cm or classified as too small to characterize, or any incidental cystic renal lesion characterized as simple-appearing, is likely benign. No follow-up imaging is recommended for these lesions per consensus recommendations based on imaging criteria. Pelvis CT 10/10/24 22:27 IMPRESSION: 1. No contrast extravasation to indicate transmural bladder injury . 2. Previous right anterior lower pelvic sidewall hematoma has decreased from the study earlier the same day due to redistribution. No progressive hematoma. 3. Known nondisplaced acute fractures of the right pubic bone and rami . Laboratory Results WBC 5.56 10^3/uL (3.29-11.43) 10/13/24 02:17 RBC 3.27 10^6/uL (3.85-5.65) L 10/13/24 02:17 Hgb 9.70 g/dL (11.27-16.99) L 10/13/24 02:17 Hct 31.8 % (37-53) L 10/13/24 02:17 MCV 97.2 fl (82-101) 10/13/24 02:17 MCH 29.7 pg (27-33) 10/13/24 02:17 MCHC 30.5 g/dL (30-55) 10/13/24 02:17 RDW 14.5 % (12.1-15.1) 10/13/24 02:17 Plt Count 213 10^3/cmm (157-399) 10/13/24 02:17 MPV 9.0 fL (7.4-10.4) 10/13/24 02:17 Neut % (Auto) 36.2 % 10/13/24 02:17 Lymph % (Auto) 26.6 % 10/13/24 02:17 [place] % (Auto) 5.4 % 10/13/24 02:17 Eos % (Auto) 27.2 % 10/13/24 02:17 Baso % (Auto) 0.5 % 10/13/24 02:17 Neut # (Auto) 2.01 10^3/uL (1.8-7.7) 10/13/24 02:17 Lymph # (Auto) 1.5 10^3/uL (0.8-4.8) 10/13/24 02:17 [place] # (Auto) 0.3 10^3/uL (0.2-0.9) 10/13/24 02:17 Eos # (Auto) 1.5 10^3/uL (0.0-0.8) H 10/13/24 02:17 Baso # (Auto) 0.0 10^3/uL (0.0-0.1) 10/13/24 02:17 Nucleated RBC % (auto) 0 % 10/13/24 02:17 Nucleated RBCs # 0.0 /100WBC 10/13/24 02:17 PT 14.80 SECONDS (12.1-14.9) 10/10/24 18:01 INR 1.09 (0.8-1.2) 10/10/24 18:01 Sodium 139 mmol/L (136-145) 10/11/24 10:37 Potassium 3.9 mmol/L (3.5-5.1) 10/11/24 10:37 Chloride 107 mmol/L (98-107) 10/11/24 10:37 Carbon Dioxide 21 mmol/L (22-29) L 10/11/24 10:37 Anion Gap 14.9 (5-19) 10/11/24 10:37 BUN 18 mg/dL (8-23) 10/11/24 10:37 Creatinine 0.9 mg/dL (0.7-1.2) 10/11/24 10:37 GFR Calculation 85.2 mL/min (90-130) L 10/11/24 10:37 Glucose 124 mg/dL (65-115) H 10/11/24 10:37 Estimat Average Glucose 91 10/11/24 10:37 Hemoglobin A1c 4.8 % (4.0-6.0) 10/11/24 10:37 Calculated Osmolality 291 mOsm/kg (285-295) 10/11/24 10:37 Calcium 7.6 mg/dL (8.5-10.5) L 10/11/24 10:37 Phosphorus 3.0 mg/dL (2.5-4.5) 10/10/24 18:01 Magnesium 2.0 mg/dL (1.7-2.3) 10/13/24 02:17 Iron 35 ug/dL (59-158) L 10/11/24 10:37 TIBC 168 mcg/dl 10/11/24 10:37 % Saturation 20.8 % (20-50) 10/11/24 10:37 Unsat Iron Binding 133 ug/dL (112-347) 10/11/24 10:37 Total Bilirubin 0.4 mg/dL (0.15-1.2) 10/11/24 10:37 AST 6 U/L (0-40) 10/11/24 10:37 ALT < 5 U/L (0-41) 10/11/24 10:37 Alkaline Phosphatase 56 U/L (40-130) 10/11/24 10:37 Creatine Kinase 18 U/L (39-308) L 10/10/24 18:01 Total Protein 5.3 g/dL (6.6-8.7) L 10/11/24 10:37 Albumin 2.9 g/dL (3.5-5.2) L 10/11/24 10:37 Globulin 2.4 g/dL (1.3-4.6) 10/11/24 10:37 Triglycerides 82 mg/dL (0-150) 10/12/24 05:51 Cholesterol 125 mg/dL (0-200) 10/12/24 05:51 LDL Cholesterol, Calc 60 mg/dL (50-129) 10/12/24 05:51 Total VLDL Cholesterol 16 mg/dL (0-30) 10/12/24 05:51 HDL Cholesterol 49 mg/dL (60-100) L 10/12/24 05:51 Cholesterol/HDL Ratio 2.55 mg/dL (1.0-5.00) 10/12/24 05:51 Vitamin B12 > 2000 pg/mL (232-1245) H 10/11/24 10:37 Folate 3.8 ng/mL (4.5-32.2) L 10/12/24 05:51 TSH 0.35 uIU/mL (0.27-4.20) 10/11/24 10:37 Vitals Last Vital Signs Temp 97.7 F 10/13/24 11:06 Pulse 71 10/13/24 11:06 Resp 16 10/13/24 11:06 BP 100/63 10/13/24 11:06 Pulse Ox 97 10/13/24 11:06 O2 Del Method Room Air 10/13/24 11:06 Discharge Plan Discharge Patient Disposition: Home Health Service Condition: Stable Prescriptions: New folic acid 1 mg tablet 1,000 mcg PO DAILY Qty: 30 0RF No Action montelukast [Singulair] 10 mg tablet 10 mg PO DAILY cetirizine 10 mg tablet 10 mg PO DAILY PRN (Reason: ALLERGIES) cholecalciferol (vitamin D3) 25 mcg (1,000 unit) capsule 25 mcg PO DAILY Otezla 30 mg tablet 30 mg PO BID Qty: 60 0RF prednisone 10 mg tablet 10 mg PO DAILY Qty: 90 1RF indomethacin 50 mg capsule 50 mg PO TID PRN (Reason: pain (scale score 7-10)) Qty: 90 0RF Rx Instructions: administer with food or milk pregabalin [Lyrica] 100 mg capsule 200 mg PO BID 90 Days Qty: 360 1RF acetaminophen [Tylenol Extra Strength] 500 mg Tablet 500 - 1,000 mg PO Q4H PRN (Reason: Pain) tacrolimus 0.1 % ointment 1 applic TOPICAL BID PRN (Reason: Skin Irritation) triamcinolone acetonide 0.1 % Ointment 1 applic TOPICAL BID PRN (Reason: red itchy rash on body) mupirocin 2 % ointment 1 applic TOPICAL BID PRN (Reason: Skin Irritation) diphenhydramine HCl [Benadryl] 25 mg Capsule 25 mg PO TID PRN (Reason: Itching) clobetasol 0.05 % ointment See Rx Instructions .ROUTE .COMPLEX Rx Instructions: APPLY TO THE AFFECTED AREA(S) OF SKIN ON ARMS AND TRUNK TWICE DAILY FOR NO MORE THAN TWO WEEKS PER MONTH. pantoprazole 40 mg tablet,delayed release (DR/EC) 40 mg PO QAM Discharge Orders: Discharge Order (Routine); Ordered 10/13/24 Ordered By: Geovany Souza Other Ambulatory Orders: DME: Ravi (Order) Location: None Selected Ordered By: Kitty Becerra Referrals: Frank Cade DO [Physician, Orthopedics] - 10/16/24 1:00 pm Marisela Blackmon FNP [Primary Care Provider, Nurse Practitioner] - 10/21/24 10:30 am Discharge Diet: Usual diet Patient Instructions: Opioid Safety Activity Restrictions/Additional Instructions: Follow-up with orthopedics in 2 weeks Weight-bear as tolerated Coding Level of Care Code Acute Code for Chg Fwd Diagnoses Accident caused by farm tractor, initial encounter W30.9XXA Encounter type: initial encounter Pubic bone fracture S32.501A Encounter type: initial encounter Fracture type: closed Laterality: right Sublocation of pubis: unspecified portion of pubis Closed fracture of superior pubic ramus S32.511A Encounter type: initial encounter Laterality: right Closed fracture of inferior pubic ramus S32.591A Encounter type: initial encounter Laterality: right Hematoma T14.8XXA Pelvic hematoma Abrasion, multiple sites T07.XXXA Multiple fractures T07.XXXA Cutaneous abscess of right knee L02.415 Behcet's disease M35.2
[2024-10-13 15:10] VITALS: BP 100/63; PULSE 71; RESP 16; TEMP 36.5; O2SAT 97
--- NOTE | 2024-10-13 15:11 | PC.NURSE ---
Discharge completed by Monica Henderson RN.
--- NOTE | 2024-10-13 18:44 | USCV_ITS ---
Mark Rodriguez Age: 64 Gender: M : 1960 Exam Date: 10/13/2024 09:34 Ordering Phys: Kitty Becerra MD Technologist: [employer] [place] [facility] [place]: lower extremity edema HISTORY: Lower extremity edema. PROCEDURES: Venous duplex imaging was performed in bilateral lower extremities. The following venous structures were evaluated: common femoral vein, profunda vein, proximal portion of the greater saphenous vein, superficial femoral vein, and the popliteal vein. In addition, the posterior tibial and peroneal trunk were evaluated. FINDINGS: No evidence of DVT seen in any vessel visualized at this time. CONCLUSIONS No evidence of right lower extremity DVT. No evidence of left lower extremity DVT. Lenny Barajas MD (Electronically Signed) Final Date: 13 Oct 2024 11:01 S
== END 2024-10-13 15:11 | disposition home health service (06) | DRG 536 ==
LOC: ER 21:05 → MEDSURG 10-11 00:36
PROVIDERS: Family Medicine; Internal Medicine; Student in an Organized Health Care Education/Training Program; Admitting Provider Surgery; Emergency Provider Emergency Medicine; PCP Nurse Practitioner; Visit Provider Surgery
DX: S32.591A Other specified fracture of right pubis, initial encounter for closed fracture (principal); M35.2 Behcet's disease; V84.5XXA Driver of special agricultural vehicle injured in nontraffic accident, initial encounter; S70.11XA Contusion of right thigh, initial encounter; R00.0 Tachycardia, unspecified; E86.0 Dehydration; R60.0 Localized edema; Z79.899 Other long term (current) drug therapy; Z87.891 Personal history of nicotine dependence
CPT/HCPCS: 12345; 36415; 51702; 72192; 73562; 73700; 74177; 80053; 80061; 82550; 82607; 82746; 83036; 83540; 83550; 83735; 84100; 84443; 85025; 85610; 90471; 90715; 93970; 96372; 96374; 96375; 97110; 97116; 97161; 97530; 99285; J0692; J1650; J1885; J2270; J2405; J7030; J7512; J9999

== ENCOUNTER → 2024-10-16 12:59 | Outpatient (BNVA) | payer OTHER, SELFPAY | PROVIDERS: PCP Nurse Practitioner; Visit Provider Orthopaedic Surgery | DX: S32.591A Other specified fracture of right pubis, initial encounter for closed fracture (principal); X58.XXXA Exposure to other specified factors, initial encounter | CPT/HCPCS: 72190; 99213 ==

== ENCOUNTER → 2024-11-06 13:03 | Outpatient (BNVA) | payer OTHER, SELFPAY | PROVIDERS: PCP Nurse Practitioner; Visit Provider Orthopaedic Surgery | DX: S32.511D Fracture of superior rim of right pubis, subsequent encounter for fracture with routine healing (principal); X58.XXXD Exposure to other specified factors, subsequent encounter | CPT/HCPCS: 72190; 99213 ==

== ENCOUNTER → 2024-11-12 14:52 | Outpatient (BNVA) | payer OTHER, SELFPAY | PROVIDERS: PCP Nurse Practitioner; Visit Provider Dermatology | DX: M35.2 Behcet's disease (principal); S70.312A Abrasion, left thigh, initial encounter; S70.311A Abrasion, right thigh, initial encounter; X58.XXXA Exposure to other specified factors, initial encounter | CPT/HCPCS: 99214 ==

== ENCOUNTER 2024-11-18 09:10 | Oncology outpatient (recurring) (ONCR) | payer OTHER, SELFPAY ==
[2024-11-18] MEDS: diphenhydrAMINE 50 mg/mL SDV 1mL 25 MG IVP (10:06)
[2024-11-18] MEDS: sodium chloride 0.9% 250 ML 75 ML IV (10:07)
[2024-11-18] MEDS: acetaminophen 325 mg Tablet 650 MG PO (10:08)
[2024-11-18] MEDS: methylPREDNISolone sod succ 40 mg/mL INJ IVP (10:09)
[2024-11-18] MEDS: infliximab-abda 400 MG in sodium chloride 0.9% 250 ML 250 MG IV (10:51)
[2024-11-18 12:15] VITALS: BP 114/72; PULSE 67; RESP 16; TEMP 36.5; O2SAT 98
== END 2024-11-24 23:59 | disposition home or self-care (01) ==
PROVIDERS: Absent Provider Internal Medicine; PCP Nurse Practitioner; Visit Provider Internal Medicine Rheumatology
DX: M35.2 Behcet's disease (principal); Z79.899 Other long term (current) drug therapy
CPT/HCPCS: 96375; 96413; A4222; J1200; J2919; J7050; J9999; Q5104

== ENCOUNTER → 2024-12-15 12:18 | Outpatient (BNVA) | payer OTHER, SELFPAY | PROVIDERS: PCP Nurse Practitioner; Visit Provider Dermatology | DX: M35.2 Behcet's disease (principal); B35.1 Tinea unguium | CPT/HCPCS: 99214 ==

== ENCOUNTER → 2024-12-16 08:53 | Outpatient (BNVA) | payer OTHER, SELFPAY | PROVIDERS: PCP Nurse Practitioner; Visit Provider Thoracic Surgery (Cardiothoracic Vascular Surgery) | DX: S81.001A Unspecified open wound, right knee, initial encounter (principal); X58.XXXA Exposure to other specified factors, initial encounter | CPT/HCPCS: 99213 ==

== ENCOUNTER 2024-12-30 09:08 | Oncology outpatient (recurring) (ONCR) | payer OTHER, SELFPAY ==
[2024-12-30 09:36] VITALS: BP 123/77; PULSE 73; TEMP 37.1; O2SAT 98
[2024-12-30] MEDS: diphenhydrAMINE 50 mg/mL SDV 1mL 25 MG IVP (10:01)
[2024-12-30] MEDS: methylPREDNISolone sod succ 40 mg/mL INJ IVP (10:05)
== END 2025-01-25 23:59 | disposition home or self-care (01) ==
PROVIDERS: Absent Provider Internal Medicine; PCP Nurse Practitioner; Visit Provider Internal Medicine Rheumatology
DX: M35.2 Behcet's disease (principal); Z79.899 Other long term (current) drug therapy; K12.1 Other forms of stomatitis; Z71.85 Encounter for immunization safety counseling; M19.90 Unspecified osteoarthritis, unspecified site; R21 Rash and other nonspecific skin eruption; L98.498 Non-pressure chronic ulcer of skin of other sites with other specified severity
CPT/HCPCS: 96413; 99215; A4222; J1200; J2919; J7050; J9999; Q5104

== ENCOUNTER 2025-02-10 08:19 | Oncology outpatient (recurring) (ONCR) | payer OTHER, SELFPAY ==
[2025-02-10] MEDS: diphenhydrAMINE 50 mg/mL SDV 1mL 25 MG IVP (09:09)
[2025-02-10 09:11] LABS: Hematocrit 40.1 % (37-53); Hemoglobin 13.10 g/dL (11.27-16.99); Mean Corpuscular HGB Conc 32.7 g/dL (30-55); Mean Corpuscular Hemoglobin 29.8 pg (27-33); Mean Corpuscular Volume 91.1 fl (82-101); Platelet Count 242 10^3/cmm (157-399); Red Blood Count 4.40 10^6/uL (3.85-5.65); White Blood Count 16.35 10^3/uL (3.29-11.43)
[2025-02-10 09:28] LABS: Alanine Aminotransferase 17 U/L (0-41); Albumin Level 3.3 g/dL (3.5-5.2); Alkaline Phosphatase 72 U/L (40-130); Aspartate Amino Transferase 7 U/L (0-40); Creatinine Clr Calc Pharmacy 76.2490; Globulin 3.6 g/dL (1.3-4.6); Total Protein 6.9 g/dL (6.6-8.7)
[2025-02-10 10:01] LABS: Slide Review Slide Review Perform
[2025-02-10 10:03] VITALS: BP 113/69; PULSE 60; RESP 17; TEMP 37; O2SAT 96
[2025-02-10] MEDS: infliximab-abda 800 MG in sodium chloride 0.9% 150 ML 10 MG IV (10:03)
[2025-02-10 10:05] LABS: Absolute Segmented Neutrophil 10.8 10/cmm (1.6-7.1); Atypical Lymphs 0.0 % (0-5); Band Neutrophils Absolute 0.7 10^3/cmm (0.0-1.2); Total Cells Counted 100 (0-100)
[2025-02-10 10:25] VITALS: BP 104/64; PULSE 56; RESP 16; TEMP 36.6; O2SAT 96
[2025-02-10 10:40] VITALS: BP 107/68; PULSE 60; RESP 16; TEMP 36.7; O2SAT 97
[2025-02-10 10:58] VITALS: BP 100/65; PULSE 57; RESP 17; TEMP 36.4; O2SAT 96
[2025-02-10 11:14] VITALS: BP 106/70; PULSE 59; RESP 17; TEMP 36.6; O2SAT 96
[2025-02-10 11:45] VITALS: BP 102/67; PULSE 57; RESP 17; TEMP 36.6; O2SAT 96
== END 2025-02-24 23:59 | disposition home or self-care (01) ==
PROVIDERS: Absent Provider Internal Medicine; PCP Nurse Practitioner; Visit Provider Internal Medicine Rheumatology
DX: M35.2 Behcet's disease (principal); Z79.899 Other long term (current) drug therapy
CPT/HCPCS: 36415; 80076; 82565; 85007; 85025; 85651; 86140; 96375; 96413; 96415; A4222; J1200; J7050; J9999; Q5104

== ENCOUNTER 2025-03-02 09:15 | Outpatient (CLI) | payer OTHER, SELFPAY ==
--- NOTE | 2025-03-02 09:25 | XR_ITS ---
WS: [id number] Left hand, 3 views, 03/02/2025 Clinical Data: LEFT ULNAR DORSAL HAND Comparison: Left hand, 07/03/2023 Findings: No fractures or dislocations are seen. The soft tissues are unremarkable. The IP joints of the left thumb and the fingers show mild osteoarthritis. There is osteoarthritis of the left first MCP joint and CMC joint. XR/XR hand LT min 3V* [id number] Impression: Osteoarthritis of the IP joints of the left thumb, fingers of the left hand, le ft first MCP joint and CMC joint.
--- NOTE | 2025-03-02 09:25 | XR_ITS ---
WS: [id number] Right hand, 3 views, 03/02/2025 Clinical Data: RIGHT RADIAL DORSAL HAND Comparison: Right hand, 07/23/2023 Findings: No fractures or dislocations are seen. The soft tissues are unremarkable. There is mild osteoarthritis of the IP joints of the right and the fingers. There is osteoarthritis of the right first MCP joint and CMC joint. XR/XR hand RT min 3V* [id number] Impression: Osteoarthritis of the right hand.
== END 2025-03-02 09:16 | disposition home or self-care (01) ==
LOC: RAD 09:17
PROVIDERS: PCP Nurse Practitioner; Visit Provider Dermatology
DX: M19.042 Primary osteoarthritis, left hand (principal); M19.041 Primary osteoarthritis, right hand
CPT/HCPCS: 73130

== ENCOUNTER 2025-03-24 07:53 | Oncology outpatient (recurring) (ONCR) | payer OTHER, SELFPAY ==
[2025-03-24] VITALS (9 sets, daily range): BP systolic 96–115; BP diastolic 61–75; PULSE 73–94; RESP 17; TEMP 36.5–37; O2SAT 92–100
[2025-03-24] MEDS: diphenhydrAMINE 50 mg/mL SDV 1mL 25 MG IVP (08:46)
[2025-03-24] MEDS: methylPREDNISolone sod succ 40 mg/mL INJ IVP (08:49)
[2025-03-24] MEDS: infliximab-abda 800 MG in sodium chloride 0.9% 150 ML 10 MG IV (09:35)
== END 2025-03-27 23:59 | disposition home or self-care (01) ==
PROVIDERS: Absent Provider Internal Medicine; PCP Nurse Practitioner; Visit Provider Internal Medicine Rheumatology
DX: Z53.9 Procedure and treatment not carried out, unspecified reason; M35.2 Behcet's disease; Z79.899 Other long term (current) drug therapy
CPT/HCPCS: 96375; 96413; 96415; A4222; J1200; J2919; J7050; J9999; Q5104

== ENCOUNTER 2025-04-20 13:37 | Outpatient (CLI) | payer OTHER, SELFPAY ==
[2025-04-20 14:21] LABS: Hematocrit 40.0 % (37-53); Hemoglobin 12.90 g/dL (11.27-16.99); Mean Corpuscular HGB Conc 32.3 g/dL (30-55); Mean Corpuscular Hemoglobin 31.4 pg (27-33); Mean Corpuscular Volume 97.3 fl (82-101); Platelet Count 179 10^3/cmm (157-399); Red Blood Count 4.11 10^6/uL (3.85-5.65); White Blood Count 11.58 10^3/uL (3.29-11.43)
[2025-04-20 14:53] LABS: Alanine Aminotransferase 11 U/L (0-41); Albumin Level 3.2 g/dL (3.5-5.2); Alkaline Phosphatase 69 U/L (40-130); Aspartate Amino Transferase 8 U/L (0-40); Globulin 3.5 g/dL (1.3-4.6); Total Protein 6.7 g/dL (6.6-8.7)
[2025-04-20 15:11] LABS: Absolute Segmented Neutrophil 6.3 10/cmm (1.6-7.1); Atypical Lymphs 2.0 % (0-5); Band Neutrophils Absolute 1.2 10^3/cmm (0.0-1.2); Total Cells Counted 100 (0-100)
== END 2025-04-20 13:38 | disposition home or self-care (01) ==
LOC: LAB 13:38
PROVIDERS: PCP Nurse Practitioner; Visit Provider Internal Medicine Rheumatology
DX: M35.2 Behcet's disease (principal); R21 Rash and other nonspecific skin eruption; K12.1 Other forms of stomatitis; Z71.85 Encounter for immunization safety counseling; M13.80 Other specified arthritis, unspecified site; Z79.899 Other long term (current) drug therapy
CPT/HCPCS: 80076; 82306; 82565; 85007; 85025; 85651; 86140; 86480; 99215

== ENCOUNTER 2025-05-20 08:30 | Oncology outpatient (recurring) (ONCR) | payer OTHER, SELFPAY ==
--- NOTE | 2025-05-14 12:27 | MR_ITS ---
WS: [id number] MRI CERVICAL SPINE with and without contrast HISTORY: BEHCETS DZ/OSTEOPENIA/SEVERE PAIN/XRAY SHOWED CYST/LESION COMPARISON: CT 03/26/2024 Technique: Multiplanar, multisequence noncontrast imaging of the cervical spine. Sagittal and axial T1 fat sat sequences post-MultiHance 15 cc IV. Straightening of the normal cervical alignment. Disc spaces are slightly narrowed and desiccated. No acute vertebral body fracture. Reidentified is the expansile bone lesion involving the LEFT C2 posterior elements. There is bony expansion with numerous cystic spaces. Low signal on the T1 sequence. This has not significantly changed in size or appearance since the CT of 03/26/2024. There is extension to the transverse foramina LEFT C2 vertebral body. There is enhancement on the postcontrast images within the abnormal bone. Signal within the cervical cord is normal. Visualized posterior fossa is unremarkable. Craniocervical junction, C1 and C2 relationship, odontoid process and soft tissues are normal. C2-C3: Mild LEFT foraminal stenosis. C3-C4: Small vertebral and foraminal osteophytes. Mild LEFT foraminal stenosis. C4-C5: Mild osteophytic ridging with a central disc protrusion. Bilateral facet arthritis. Bilateral moderate foraminal stenosis. C5-C6: Diffuse osteophytic ridging. Disc osteophyte complex centrally extending to the LEFT paracentral region. Mild central with moderate foraminal stenosis. C6-C7: Mild annular disc bulging. Moderate-sized RIGHT paracentral disc protrusion contacting the ventral thecal sac. Mild central with moderate foraminal stenosis. C7-T1: Mild bilateral foraminal stenosis. MR/MR cervical spine wo/w [id number] IMPRESSION: 1. Stability of the heterogeneous bone expansion involving the LEFT lateral C2 posterior elements. There is enhancement throughout the abnormal bone. Very si milar to the CT of 08/15/2023 CT appearance. Differential includes fibrous dyspl rajiv and Paget's disease. With no significant change since 08/15/2003 this is li justyna a benign process. Bone scan imaging can be performed to evaluate for addit ional areas of abnormal bone. 2. Moderate size RIGHT paracentral disc protrusion at C6-7 contacting the vent ral thecal sac. Mild central and moderate foraminal stenosis. 3. Bilateral moderate foraminal stenosis at C4-5. 4. Mild central and moderate foraminal stenosis at C5-6.
[2025-05-14] MEDS: gadobenate dimeglumine 20 mL vial 15 ML IV (13:39)
[2025-05-20] MEDS: diphenhydrAMINE 50 mg/mL SDV 1mL 25 MG IVP (08:20)
[2025-05-20] MEDS: methylPREDNISolone sod succ 40 mg/mL INJ IVP (08:22)
[2025-05-20 08:24] VITALS: BP 110/61; PULSE 107; RESP 18; TEMP 37.6; O2SAT 99
[2025-05-20] MEDS: infliximab-abda 700 MG in sodium chloride 0.9% 250 ML 250 MG IV (08:49)
[2025-05-20 10:02] VITALS: BP 110/73; PULSE 98; RESP 17; TEMP 37.7; O2SAT 97
== END 2025-05-27 23:59 | disposition home or self-care (01) ==
PROVIDERS: Absent Provider Internal Medicine; PCP Nurse Practitioner; Visit Provider Nurse Practitioner
DX: M35.2 Behcet's disease; Z79.899 Other long term (current) drug therapy; Z53.9 Procedure and treatment not carried out, unspecified reason
CPT/HCPCS: 72156; 96375; 96413; A4222; J1200; J2919; J7050; J9999; Q5104